=== PATIENT | female | born 1965 | race Caucasian/White ===

== ENCOUNTER 2018-08-10 11:11 | Emergency (ER) | payer MEDICARE, BC ==
[~2018-08-10] VITALS: Ht 167.6 cm; Wt 63.6 kg
[~2018-08-10 11:11] MED LIST: ACIDOPHILUS LAC1 CAP PO; AEROBID-M AEROSO7 GM INH; CELEXA40 MG PO; COMBIVENT RESPIM4 GM INH; COREG6.25 MG PO; DEXEDRINE10 MG PO; DILAUDID2 MG; DILAUDID4 MG PO; DOXYCYCLINE HY100 M2 PO; DUONEB 2.5-0.5 M3 ML UPD; DURAGESIC1 PATCH .1 TRANSDERM; FLORANEX / LACT1 TAB PO; FLUTICASONE PRO16 GM NS; FOLIC ACID1 MG PO; GYNE-LOTRIMIN45 GM VG; HYDROPHILIC; IMODIUM A-D2 M1 PO; LEVAQUIN500 MG PO; LEVSIN/ANASP0.125 MG PO; LIDODERM 5 %1 PATCH TD; LORTAB 7.5/5001 TA1 PO; MAGIC MOUTHWASH OR; MUCUS RELIEF400 MG PO; NEURONTIN 100100 MG PO; NORCO 5/325 TAB1 TA1 PO; NORCO 7.5/325 T1 TA1 PO; PHOSLO667 MG PO; PRILOSEC20 MG PO; PROVENTIL HFA6.7 GM INH; RENVELA800 MG PO; STERAPRED DS 1210 MG PO; VANCOMYCIN1 GM/2501 IV; VITAMIN B-121000 MCG PO; WITCH HAZEL; XANAX0.25 MG PO; XANAX0.5 MG PO; ZYRTEC10 M1 PO
[2018-08-10 11:14] VITALS: Ht 167.6 cm; Wt 63.6 kg
[2018-08-10 11:58] LABS: BASOPHILS 1.1 % (0-2); EOSINOPHILS 4.9 % (0-7); HEMATOCRIT 38.5 % (36.0-48.0); HEMOGLOBIN 12.9 g/dL (12-16); LYMPHOCYTES 36.7 % (15-50); MCH 32.1 pg (26.0-34.0); MCHC 33.5 g/dL (31.0-37.0); MCV 95.8 fL (80.0-100.0); MEAN PLATELET VOLUME 10.4 fL (7.4-10.4); MONOCYTES 9.9 % (2-11); NEUTROPHILS 47.4 % (40-80); PLATELET COUNT 104 10x3/uL (130-400); RBC 4.02 10x6/uL (4.00-5.40); RDW 12.5 % (11.5-14.5); WBC 2.8 10x3/uL (4.8-10.8)
[2018-08-10 12:24] LABS: ALBUMIN 3.3 g/dL (3.4-5.0); ALKALINE PHOSPHATASE 151 U/L (46-116); ALT (SGPT) 18 U/L (10-68); BILIRUBIN - TOTAL 0.18 mg/dL (0.2-1.3); CALC OSMOLALITY 283 mosm/kg (275-300); CALCIUM 8.4 mg/dL (8.5-10.1); CARBON DIOXIDE 25.8 mmol/L (21.0-32.0); CHLORIDE - SERUM 104 mmol/L (98-107); CKMB 1.6 U/L (0.0-3.6); CREATINE KINASE 55 UL (21-215); CREATININE - SERUM 4.8 mg/dL (0.6-1.3); GLUCOSE 86 mg/dL (74-106); POTASSIUM - SERUM 4.2 mmol/L (3.5-5.1); PROTEIN - SERUM 6.8 g/dL (6.4-8.2); SODIUM 141 mmol/L (136-145); UREA NITROGEN 25 mg/dL (7-18); eGFR NON AFRICAN AMERICAN 10 mL/min (90-120)
[2018-08-10 12:25] LABS: TROPONIN-I < 0.017 ng/mL (0.000-0.060)
[2018-08-10 16:30] VITALS: BP 133/67
== END 2018-08-10 16:30 | disposition home or self-care (01) ==
LOC: D.ER 11:11
PROVIDERS: Family Medicine
DX: I95.9 Hypotension, unspecified (principal); T80.89XA Other complications following infusion, transfusion and therapeutic injection, initial encounter; R07.9 Chest pain, unspecified; N18.9 Chronic kidney disease, unspecified; Z99.2 Dependence on renal dialysis

== ENCOUNTER 2018-09-15 20:38 | Inpatient (IN) | payer MEDICARE, BC ==
[~2018-09-15] VITALS: Ht 167.6 cm; Wt 73.3 kg
--- NOTE | ~2018-09-15 | MORECARE ---
CASE MANAGEMENT DISCHARGE SUMMARY PATIENT: ARTHUR JUNG UNIT: [id number] ADM DATE: 09/16/18 AGE: 53 : 61 SEX: F ROOM/BED: D.2108 AUTHOR: LIDA LEPE PHYSICIAN: REFERRING PHYSICIAN: ARACELI QUINTANA MD DATE OF SERVICE: 09/18/18 Discharge Plan Patient Name: ARTHUR JUNG [facility] [facility] 1965 Planned Disposition: Inpatient Rehab Anticipated Discharge Date: 09/18/18 Discharge Date: Expected LOS: 2 Initial Reviewer: [id number] Initial Review Date: 09/16/2018 Generated: 09/18/18 4:51 pm Comments DCP- Discharge Planning Updated by [id number]: Zuleima Reno on 09/18/18 2:[address] CM SPOKE WITH PATIENT'S SISTER DARA REQUESTED BY NURSE. DARA WAS WANTING AN UPDATE ABOUT HER SISTER AND THE PLAN ON HER BEING DIALIZED. I LET HER KNOW THERE IS AN ORDER FOR A TRIALYSIS CATH TO BE PLACED TODAY AND THEN SHE SHOULD BE ABLE TO GO TO DIALYSIS. DR. WILCOX ENTERED ROOM WHILE I WAS IN THERE. PATIENT STATES ONCE SHE IS BETTER SHE WOULD LIKE IN PT REHAB HERE AT THE HOSPITAL. SISTER IS INTERESTED IN GETTING ANOTHER POA. STATES SHE HAS ONE AT HOME BUT WANTS INFO OF DOING ONE HERE. CM WILL CALL AND GET INFO ABOUT HOSPITAL PROCEDURE OF A POA. DCP- Discharge Planning Updated by [id number]: Shar Amaral on 09/16/18 4:[address] Patient Name: ARTHUR JUNG Admission Status: ER Accout number: [id number] Admission Date: 09-16-2018 : 1965 Admission Diagnosis: Attending: ARACELI QUINTANA Current LOS: 1 Anticipated DC Date: 09-18-2018 Planned Disposition: Inpatient Rehab Primary Insurance: MEDICARE A & B PLANNED EXTERNAL PROVIDER: [facility] INPATIENT REHAB Discharge Planning Comments: CM MET WITH PT'S SISTER DARA [facility] WHO ASKED FOR RESOURCE TO ASSIST PT WITH GETTING TO AND FROM HOME AND DIALYSIS, ASKED CM TO FAX RECORDS TO [place] DR. RICHTER. CM MET WITH PT AND SISTER IN ROOM TO DISCUSS DISCHARGE PLANNING AND NEEDS. ARTHUR JUNG provided verbal consent to discuss current and ongoing needs with/in the presence of: SISTER DARA. PT REPORTS LIVING AT HOME INDEPENDENTLY AND ALONE. PT HAS BEEN GOING DOWN 13 STEPS TO DOWNSTAIRS BEDROOM, PT'S SISTER REPORTS SHE IS GOING TO FIX A BED ON THE MAIN FLOOR FOR PT UNTIL SHE IS BETTER. PT HAS MEDICAL EQUIPMENT FROM [facility] AND NO OUTSIDE SERVICES ASSISTING IN THE HOME. PT HAS BEEN DRIVING HERSELF TO AND FROM OUTPATIENT DIALYSIS AT [facility], MWF, 0530AM. CM DISCUSSED AVAILABILITY OF HOME HEALTH, REHAB SERVICES AND MEDICAL EQUIPMENT. PT WANTS REHAB AT [place] AND MAY CONSIDER GOING TO THE [facility] LATER. PT DOES NOT WANT TRANSFER TO [facility] NOW, REPORTS HER SISTER OR FRIEND WILL PICK HER UP FOR DISCHARGE HOME. CM PROVIDED PT WITH [employer] BUS TRANSIT APPLICATION, INSTRUCTED ON HOW TO FILL OUT AND WHERE TO TURN THE APPLICATION IN AT. PT SIGNED RELEASE OF INFORMATION TO THE [facility], ASKED CM TO FAX TO DR. RICHTER AT [facility]. CM FAXED RELEASE, H&P, MED LIST AND LABS TO DR. RICHTER AT [facility], FAX [phone]. PT WOULD LIKE TO BE CONSIDERED FOR REHAB, REPORTS HER PAIN TO BE VERY BAD SINCE "BREAKING" HER BACK AND WANTS REHAB AT [facility] IF POSSIBLE. CM TO CONTINUE TO FOLLOW AND ASSIST NEEDED. Deputy Director Of Nursing: Shar Amaral MSPIA - Discharge Planning Initial Assessment Updated by [id number]: Shar Amaral on 09/16/18 5:07 pm * Is the patient Alert and Oriented? Yes * How many steps to enter\\exit or inside your home? 1-O / 13-I * PCP DR. RICHTER, [facility] OR [facility] * Pharmacy [facility] [address] * Preadmission Environment Home Alone * ADLs Independent * Equipment Cane Nebulizer Oxygen Walker * Other Equipment [facility] MEDICAL EQUIPMENT PROVIDER * List name and contact numbers for known caregivers / representatives who currently or will assist patient after discharge: DARA VIERA, SISTER, [place] [phone] * Verbal permission to speak to the caregivers and representatives has been obtained from the patient. Yes * Community resources currently utilized Other [facility] Services * Please name any agencies selected above. PT REPORTS 100% [facility] DIS[facility] [place], [facility], 0530, PT DRIVES SELF. * Additional services required to return to the preadmission environment? Yes * Can the patient safely return to the preadmission environment? Yes * Has this patient been hospitalized within the prior 30 days at any hospital? No Last DP export: 09/16/18 4:09 Patient Name: ARTHUR JUNG Page 53871 at 1551 All edits/amendments must be made on the electronic document DICTATION DATE: 09/18/181550 ACCOUNTANT: SARA 09/18/181550 RPT#: [id number] DC DATE: STATUS: ADM IN [facility] [address] [place] [address] END OF REPORT
--- NOTE | ~2018-09-15 | MORECARE ---
CASE MANAGEMENT DISCHARGE SUMMARY PATIENT: ARTHUR JUNG UNIT: [id number] ADM DATE: 09/16/18 AGE: 53 : 61 SEX: F ROOM/BED: D.9915 AUTHOR: SHERLEY,DOC PHYSICIAN: REFERRING PHYSICIAN: ARACELI QUINTANA MD DATE OF SERVICE: 09/24/18 Discharge Plan Patient Name: ARTHUR JUNG [facility] [facility] 1965 Planned Disposition: Inpatient Rehab Anticipated Discharge Date: 09/24/18 Discharge Date: Expected LOS: 8 Initial Reviewer: [id number] Initial Review Date: 09/16/2018 Generated: 09/24/18 10:25 am Comments DCP- Discharge Planning Updated by [id number]: Shar Amaral on 09/21/18 1:[address] Patient Name: ARTHUR JUNG Encounter No: [id number] : 1965 Primary Insurance: MEDICARE A & B Anticipated DC Date: 09-22-2018 Planned Disposition: Inpatient Rehab External Planned Provider: [facility] INPATIENT REHAB DCP follow-up note: CM RECEIVED ORDER FOR INPATIENT REHAB PRESCREENING. CM ATTEMPTED TO MEET WITH PT AND HER SISTER IN ROOM TO DISCUSS DISCHARGE PLANNING, PT WAS HAVING BLOOD DRAWN, CM EXCUSED SELF AND EXPLAINED THAT CM WILL BE BACK SHORTLY. CM RETURNED TO ROOM, PT AND BED GONE, PT'S SISTER REPORTS THAT PT IS GONE FOR PROCEDURE AND WILL BE BACK IN ONE AND HALF HOURS. PT'S SISTER ASKED ABOUT REHAB AT [facility]. CM EXPLAINED THAT THE ORDER FOR PRESCREENING WAS IN AND THAT SOMEONE FROM REHAB WILL BE UP LATER TO EVALUATE AND INFORM PATIENT ABOUT PROGRAM. CM ANSWERED SISTER'S, DARA, QUESTIONS ABOUT INPATIENT REHAB AT [facility]. DARA INFORMED CM THAT PT IS STILL WANTING REHAB AT [facility] AND THAT [facility] TOO FAR AWAY FROM FAMILY TO VISIT REGULARLY AND ADVOCATE FOR PT. IMPORTANT MESSAGE FROM MEDICARE PROVIDED AND EXPLAINED. PT'S SISTER STATES SHE WILL LET PT KNOW THAT REHAB WILL BE UP TO ANSWER ANY QUESTIONS AND EVALUATE FOR REHAB PLACEMENT AT [facility] INPATIENT REHAB. CM WAITING INPATIENT REHAB PRESCREENING AND ADMISSION DETERMINATION FROM [facility] INPATIENT REHAB. Shar Amaral, CASE MANAGEMENT Appended by Shar Amaral on 09/21/2018 14:00 CDT: CM SPOKE TO PT IN ROOM REGARDING INPATIENT REHAB PRESCREENING ORDER. PT STILL WANTING REHAB AT [facility] AND FEELS SHE IS READY NOW FOR REHAB. INPORTANT MESSAGE FROM MEDICARE DISCUSSED, PT REPORTS RECEIVING THIS LAST WEEK, CM EXPLAINED THAT CM WAS REMINDING PT OF ABILITY TO APPEAL DISCHARGE AND HAVE COMPLAINTS HEARD AND INVESTIGATED BY MEDICARE IF NEEDED. PT ASKED IF CM HAD INFORMED HER SISTER, DARA OF WHAT HAS BEEN GOING ON AND SPOKE TO HER SISTER AT THAT MOMENT VIA CELL; PT'S SISTER ADVISED PT THAT CM HAD ALREADY INFORMED HER OF EVERYTHING AND SHE NEEDED NOTHING FURHTER AT THIS TIME. PT DENIES FURTHER NEEDS AT THIS TIME. CM WAITING INPATIENT REHAB PRESCREENING AND ADMISSION DETERMINATION FROM [facility] INPATIENT RE[facility]. Shar Amaral, CASE MANAGEMENT DCP- Discharge Planning Updated by [id number]: Zuleima Reno on 09/18/18 2:[address] CM SPOKE WITH PATIENT'S SISTER DARA REQUESTED BY NURSE. DARA WAS WANTING AN UPDATE ABOUT HER SISTER AND THE PLAN ON HER BEING DIALIZED. I LET HER KNOW THERE IS AN ORDER FOR A TRIALYSIS CATH TO BE PLACED TODAY AND THEN SHE SHOULD BE ABLE TO GO TO DIALYSIS. DR. WILCOX ENTERED ROOM WHILE I WAS IN THERE. PATIENT STATES ONCE SHE IS BETTER SHE WOULD LIKE IN PT REHAB HERE AT THE HOSPITAL. SISTER IS INTERESTED IN GETTING ANOTHER POA. STATES SHE HAS ONE AT HOME BUT WANTS INFO OF DOING ONE HERE. CM WILL CALL AND GET INFO ABOUT HOSPITAL PROCEDURE OF A POA. DCP- Discharge Planning Updated by [id number]: Shar Amaral on 09/16/18 4:[address] Patient Name: ARTHUR JUNG Admission Status: ER Accout number: [id number] Admission Date: 09-16-2018 : 1965 Admission Diagnosis: Attending: ARACELI QUINTANA Current LOS: 1 Anticipated DC Date: 09-18-2018 Planned Disposition: Inpatient Rehab Primary Insurance: MEDICARE A & B PLANNED EXTERNAL PROVIDER: [facility] INPATIENT REHAB Discharge Planning Comments: CM MET WITH PT'S SISTER DARA IN [facility] WHO ASKED FOR RESOURCE TO ASSIST PT WITH GETTING TO AND FROM HOME AND DIALYSIS, ASKED CM TO FAX RECORDS TO [place] DR[place] RICHTER. CM MET WITH PT AND SISTER IN ROOM TO DISCUSS DISCHARGE PLANNING AND NEEDS. ARTHUR JUNG provided verbal consent to discuss current and ongoing needs with/in the presence of: SISTER DARA. PT REPORTS LIVING AT HOME INDEPENDENTLY AND ALONE. PT HAS BEEN GOING DOWN 13 STEPS TO DOWNSTAIRS BEDROOM, PT'S SISTER REPORTS SHE IS GOING TO FIX A BED ON THE MAIN FLOOR FOR PT UNTIL SHE IS BETTER. PT HAS MEDICAL EQUIPMENT FROM [facility] AND NO OUTSIDE SERVICES ASSISTING IN THE HOME. PT HAS BEEN DRIVING HERSELF TO AND FROM OUTPATIENT DIALYSIS AT [facility], MWF, 0530AM. CM DISCUSSED AVAILABILITY OF HOME HEALTH, REHAB SERVICES AND MEDICAL EQUIPMENT. PT WANTS REHAB AT [facility] AND MAY CONSIDER GOING TO THE [facility] LATER. PT DOES NOT WANT TRANSFER TO [facility] NOW, REPORTS HER SISTER OR FRIEND WILL PICK HER UP FOR DISCHARGE HOME. CM PROVIDED PT WITH [employer] TRANSIT APPLICATION, INSTRUCTED ON HOW TO FILL OUT AND WHERE TO TURN THE APPLICATION IN AT. PT SIGNED RELEASE OF INFORMATION TO THE [place], ASKED CM TO FAX TO DR. RICHTER AT [facility]. CM FAXED RELEASE, H&P, MED LIST AND LABS TO DR. RICHTER AT [facility], FAX [phone]. PT WOULD LIKE TO BE CONSIDERED FOR REHAB, REPORTS HER PAIN TO BE VERY BAD SINCE "BREAKING" HER BACK AND WANTS REHAB AT [facility] IF POSSIBLE. CM TO CONTINUE TO FOLLOW AND ASSIST NEEDED. Poultry Debeaker: Shar Amaral DCPIA - Discharge Planning Initial Assessment Updated by [id number]: Shar Amaral on 09/16/18 5:07 pm * Is the patient Alert and Oriented? Yes * How many steps to enter\\exit or inside your home? 1-O / 13-I * PCP DR. RICHTER, [facility] OR [facility] * Pharmacy [facility] [address] * Preadmission Environment Home Alone * ADLs Independent * Equipment Cane Nebulizer Oxygen Walker * Other Equipment [place] MEDICAL EQUIPMENT PROVIDER * List name and contact numbers for known caregivers / representatives who currently or will assist patient after discharge: DARA VIERA, , [place] [phone] * Verbal permission to speak to the caregivers and representatives has been obtained from the patient. Yes * Community resources currently utilized Other [place] Services * Please name any agencies selected above. PT REPORTS 100% [facility] DISABILITY - DECLINES TRANSFER TO [facility], [place], MWF, 0530, PT DRIVES SELF. * Additional services required to return to the preadmission environment? Yes * Can the patient safely return to the preadmission environment? Yes * Has this patient been hospitalized within the prior 30 days at any hospital? No Coverage Notice Reviewer: [id number] Amaral Notice Issued Date-Time: 09/21/2018 11:30 Notice Type: IM Discharge Notice Notice Delivered To: Family Member Relationship to Patient: Sister Game Show Host Name: DARA VIERA Delivery Method: HAND - Hand Delivered Ely Days: Prior Verbal Notification: Recipient Understood Notice: Yes Recipient Signature: Yes Med Rec Note Co-signed by Attending: Coverage Notice Comment: Reviewer: [id number] Amaral Notice Issued Date-Time: 09/24/2018 9:00 Notice Type: IM Discharge Notice Notice Delivered To: Patient Relationship to Patient: Game Show Host Name: Delivery Method: HAND - Hand Delivered Ely Days: Prior Verbal Notification: Recipient Understood Notice: Yes Recipient Signature: Yes Med Rec Note Co-signed by Attending: Coverage Notice Comment: Last DP export: 09/21/18 1:02 Patient Name: ARTHUR JUNG Page 56560 at 0925 All edits/amendments must be made on the electronic document DICTATION DATE: 09/24/18923 LAUNDERER HAND: SARA 09/24/18923 RPT#: [id number] DC DATE: STATUS: ADM IN [facility] [address] [place] [address] END OF REPORT
--- NOTE | ~2018-09-15 | MORECARE ---
CASE MANAGEMENT DISCHARGE SUMMARY PATIENT: ARTHUR JUNG UNIT: [id number] ADM DATE: 09/16/18 AGE: 53 : 61 SEX: F ROOM/BED: D.2108 AUTHOR: LIDA LEPE PHYSICIAN: REFERRING PHYSICIAN: ARACELI QUINTANA MD DATE OF SERVICE: 09/21/18 Discharge Plan Patient Name: ARTHUR JUNG [facility] [facility] 1965 Planned Disposition: Inpatient Rehab Anticipated Discharge Date: 09/22/18 Discharge Date: Expected LOS: 6 Initial Reviewer: [id number] Initial Review Date: 09/16/2018 Generated: 09/21/18 9:45 am Comments DCP- Discharge Planning Updated by [id number]: Zuleima Shadia on 09/18/18 2:[address] CM SPOKE WITH PATIENT'S SISTER DARA REQUESTED BY NURSE. DARA WAS WANTING AN UPDATE ABOUT HER SISTER AND THE PLAN ON HER BEING DIALIZED. I LET HER KNOW THERE IS AN ORDER FOR A TRIALYSIS CATH TO BE PLACED TODAY AND THEN SHE SHOULD BE ABLE TO GO TO DIALYSIS. DR. WILCOX ENTERED ROOM WHILE I WAS IN THERE. PATIENT STATES ONCE SHE IS BETTER SHE WOULD LIKE IN PT REHAB HERE AT THE HOSPITAL. SISTER IS INTERESTED IN GETTING ANOTHER POA. STATES SHE HAS ONE AT HOME BUT WANTS INFO OF DOING ONE HERE. CM WILL CALL AND GET INFO ABOUT HOSPITAL PROCEDURE OF A POA. DCP- Discharge Planning Updated by [id number]: Shar Amaral on 09/16/18 4:[address] Patient Name: ARTHUR JUNG Admission Status: ER Accout number: [id number] Admission Date: 09-16-2018 : 1965 Admission Diagnosis: Attending: ARACELI QUINTANA Current LOS: 1 Anticipated DC Date: 09-18-2018 Planned Disposition: Inpatient Rehab Primary Insurance: MEDICARE A & B PLANNED EXTERNAL PROVIDER: [facility] INPATIENT REHAB Discharge Planning Comments: CM MET WITH PT'S SISTER DARA IN [facility] WHO ASKED FOR RESOURCE TO ASSIST PT WITH GETTING TO AND FROM HOME AND DIALYSIS, ASKED CM TO FAX RECORDS TO [place] DR. RICHTER. CM MET WITH PT AND SISTER IN ROOM TO DISCUSS DISCHARGE PLANNING AND NEEDS. ARTHUR JUNG provided verbal consent to discuss current and ongoing needs with/in the presence of: SISTER DARA. PT REPORTS LIVING AT HOME INDEPENDENTLY AND ALONE. PT HAS BEEN GOING DOWN 13 STEPS TO DOWNSTAIRS BEDROOM, PT'S SISTER REPORTS SHE IS GOING TO FIX A BED ON THE MAIN FLOOR FOR PT UNTIL SHE IS BETTER. PT HAS MEDICAL EQUIPMENT FROM [facility] [employer] AND NO OUTSIDE SERVICES ASSISTING IN THE HOME. PT HAS BEEN DRIVING HERSELF TO AND FROM OUTPATIENT DIALYSIS AT [facility], MWF, 0530AM. CM DISCUSSED AVAILABILITY OF HOME HEALTH, REHAB SERVICES AND MEDICAL EQUIPMENT. PT WANTS REHAB AT [place] AND MAY CONSIDER GOING TO THE [facility] LATER. PT DOES NOT WANT TRANSFER TO [facility] NOW, REPORTS HER SISTER OR FRIEND WILL PICK HER UP FOR DISCHARGE HOME. CM PROVIDED PT WITH [employer] BUS TRANSIT APPLICATION, INSTRUCTED ON HOW TO FILL OUT AND WHERE TO TURN THE APPLICATION IN AT. PT SIGNED RELEASE OF INFORMATION TO THE [place], ASKED CM TO FAX TO DR. RICHTER AT [facility]. CM FAXED RELEASE, H&P, MED LIST AND LABS TO DR. RICHTER AT [place], FAX [phone]. PT WOULD LIKE TO BE CONSIDERED FOR REHAB, REPORTS HER PAIN TO BE VERY BAD SINCE "BREAKING" HER BACK AND WANTS REHAB AT [facility] IF POSSIBLE. CM TO CONTINUE TO FOLLOW AND ASSIST NEEDED. Organizational Consultant: Shar Amaral MEPIA - Discharge Planning Initial Assessment Updated by [id number]: Shar Amaral on 09/16/18 5:07 pm * Is the patient Alert and Oriented? Yes * How many steps to enter\\exit or inside your home? 1-O / 13-I * PCP DR. RICHTER, [facility] OR [facility] * Pharmacy [place] [facility] [address] * Preadmission Environment Home Alone * ADLs Independent * Equipment Cane Nebulizer Oxygen Walker * Other Equipment [place] MEDICAL [facility]QUIPMENT PROVIDER * List name and contact numbers for known caregivers / representatives who currently or will assist patient after discharge: DARA VIERA, SISTER, [place] [phone] * Verbal permission to speak to the caregivers and representatives has been obtained from the patient. Yes * Community resources currently utilized Other [place] Services * Please name any agencies selected above. PT REPORTS 100% [facility] DISABILITY - DECLINES [facility], [facility], 0530, PT DRIVES SELF. * Additional services required to return to the preadmission environment? Yes * Can the patient safely return to the preadmission environment? Yes * Has this patient been hospitalized within the prior 30 days at any hospital? No Last DP export: 09/18/18 2:51 Patient Name: ARTHUR JUNG Page 00301 at 0845 All edits/amendments must be made on the electronic document DICTATION DATE: 09/21/18843 MEDICAID SERVICE COORDINATOR: SARA 09/21/18843 RPT#: [id number] DC DATE: STATUS: ADM IN [facility] [address] [place] [address] END OF REPORT
--- NOTE | ~2018-09-15 | MORECARE ---
CASE MANAGEMENT DISCHARGE SUMMARY PATIENT: ARTHUR JUNG UNIT: [id number] ADM DATE: 09/16/18 AGE: 53 : 61 SEX: F ROOM/BED: D.7335 AUTHOR: LIDA LEPE PHYSICIAN: REFERRING PHYSICIAN: ARACELI QUINTANA MD DATE OF SERVICE: 09/24/18 Discharge Plan Patient Name: ARTHUR JUNG [facility] [facility] 1965 Planned Disposition: Inpatient Rehab Anticipated Discharge Date: 09/24/18 Discharge Date: Expected LOS: 8 Initial Reviewer: [id number] Initial Review Date: 09/16/2018 Generated: 09/24/18 4:25 pm Comments DCP- Discharge Planning Updated by [id number]: Shar Amaral on 09/24/18 8:[address] Patient Name: ARTHUR JUNG Encounter No: [id number] : 1965 Primary Insurance: MEDICARE A & B Anticipated DC Date: 09-24-2018 Planned Disposition: Inpatient Rehab External Planned Provider: [facility] DCP follow-up note: CM RECEIVED CALL FROM PT ASKING FOR CM TO SEE HER. CM MET WITH PT AT APPROXIMATELY 0850 HOURS IN ROOM. PT REPORTS THAT THE NURSE ON FRIDAY INFORMED PT THAT PAIN PATCH WAS DISCONTINUED, PT PULLED HER PATCH OFF AND GAVE TO NURSE WHO PUT THE PATCH INTO THE SHARPS CONTAINER IN ROOM. PT THEN ASKED DR. QUINTANA ABOUT PAIN MANAGEMENT, PT REPORTS DR. QUINTANA TOLD HER THAT HE DID NOT DISCONTINUE THE MEDICATION AND REORDERED A PAIN PATCH. PT HAS THE PATCH ON HER BACK NOW. PT WOULD LIKE TO ADDRESS THIS WITH SOMEONE SO THAT PT'S "CREDABILITY" IS NOT DAMAGED. PT ALSO REPORTS KILLING A KAMINSKI IN HER ROOM YESTERDAY AND SAW ANOTHER ONE THIS MORNING. CM INFORMED PT THAT OCCUPATIONAL THERAPY SUPERVISOR WOULD BE NOTIFIED OF HER ISSUES WITH REQUEST TO SEE HER. PT IS WANTING TO GO TO [facility] TODAY AND REPORTS THE DOCTOR TOLD HER SHE CAN GO TODAY. IMPORTANT MESSAGE FROM MEDICARE PROVIDED AND EXPLAINED. CM NOTIFIED BODY SHOP WORKER OF REPORTED ROACHES IN ROOM FOR MAINTENANCE ORDER. CM NOTIFIED UNIT NURSE GLOBAL MARKETING INTERN SALEEM OF PT'S CONCERN. CM NOTIFIED DEMI OF [facility]. [facility] TO CONTACT MED 2 NURSE WITH ROOM NUMBER WHEN READY TO ACCEPT PT AND NURSE REPORT. Shar Amaral, CASE MANAGEMENT DCP- Discharge Planning Updated by [email or web address]: Shar Amaral on 09/21/18 1:[address] Patient Name: ARTHUR JUNG Encounter No: [id number] : 1965 Primary Insurance: MEDICARE A & B Anticipated DC Date: 09-22-2018 Planned Disposition: Inpatient Rehab External Planned Provider: [facility] DCP follow-up note: CM RECEIVED ORDER FOR INPATIENT REHAB PRESCREENING. CM ATTEMPTED TO MEET WITH PT AND HER SISTER IN ROOM TO DISCUSS DISCHARGE PLANNING, PT WAS HAVING BLOOD DRAWN, CM EXCUSED SELF AND EXPLAINED THAT CM WILL BE BACK SHORTLY. CM RETURNED TO ROOM, PT AND BED GONE, PT'S SISTER REPORTS THAT PT IS GONE FOR PROCEDURE AND WILL BE BACK IN ONE AND HALF HOURS. PT'S SISTER ASKED ABOUT REHAB AT [place]. CM EXPLAINED THAT THE ORDER FOR PRESCREENING WAS IN AND THAT SOMEONE FROM REHAB WILL BE UP LATER TO EVALUATE AND INFORM PATIENT ABOUT PROGRAM. CM ANSWERED SISTER'S, DARA, QUESTIONS ABOUT INPATIENT REHAB AT [place]. DARA INFORMED CM THAT PT IS STILL WANTING RE[facility]AB AT [place] AND [facility] AW[facility] FROM FAMILY TO VISIT REGULARLY AND ADVOCATE FOR PT. IMPORTANT MESSAGE FROM MEDICARE PROVIDED AND EXPLAINED. PT'S SISTER STATES SHE WILL LET PT KNOW THAT REHAB WILL BE UP TO ANSWER ANY QUESTIONS AND EVALUATE FOR REHAB PLACEMENT AT [place] INPATIENT REHAB. CM WAITING INPATIENT REHAB PRESCREENING AND ADMISSION DETERMINATION FROM [facility]. Shar Amaral, CASE MANAGEMENT Appended by Shar Amaral on 09/21/2018 14:00 CDT: CM SPOKE TO PT IN ROOM REGARDING INPATIENT REHAB PRESCREENING ORDER. PT STILL WANTING REHAB AT [place] AND FEELS SHE IS READY NOW FOR REHAB. INPORTANT MESSAGE FROM MEDICARE DISCUSSED, PT REPORTS RECEIVING THIS LAST WEEK, CM EXPLAINED THAT CM WAS REMINDING PT OF ABILITY TO APPEAL DISCHARGE AND HAVE COMPLAINTS HEARD AND INVESTIGATED BY MEDICARE IF NEEDED. PT ASKED IF CM HAD INFORMED HER SISTERDARA OF WHAT HAS BEEN GOING ON AND SPOKE TO HER SISTER AT THAT MOMENT VIA CELL; PT'S SISTER ADVISED PT THAT CM HAD ALREADY INFORMED HER OF EVERYTHING AND SHE NEEDED NOTHING FURHTER AT THIS TIME. PT DENIES FURTHER NEEDS AT THIS TIME. CM WAITING INPATIENT REHAB PRESCREENING AND ADMISSION DETERMINATION FROM [facility]. Shar Amaral, CASE MANAGEMENT DCP- Discharge Planning Updated by [id number]: Zuleima Reno on 09/18/18 2:[address] CM SPOKE WITH PATIENT'S SISTER DARA REQUESTED BY NURSE. DARA WAS WANTING AN UPDATE ABOUT HER SISTER AND THE PLAN ON HER BEING DIALIZED. I LET HER KNOW THERE IS AN ORDER FOR A TRIALYSIS CATH TO BE PLACED TODAY AND THEN SHE SHOULD BE ABLE TO GO TO DIALYSIS. DR. WILCOX ENTERED ROOM WHILE I WAS IN THERE. PATIENT STATES ONCE SHE IS BETTER SHE WOULD LIKE IN PT REHAB HERE AT THE HOSPITAL. SISTER IS INTERESTED IN GETTING ANOTHER POA. STATES SHE HAS ONE AT HOME BUT WANTS INFO OF DOING ONE HERE. CM WILL CALL AND GET INFO ABOUT HOSPITAL PROCEDURE OF A POA. DCP- Discharge Planning Updated by [id number]: Shar Amaral on 09/16/18 4:[address] Patient Name: ARTHUR Hicks FABIANA Admission Status: ER Accout number: [id number] Admission Date: 09-16-2018 : 1965 Admission Diagnosis: Attending: ARACELI QUINTANA Current LOS: 1 Anticipated DC Date: 09-18-2018 Planned Disposition: Inpatient Rehab Primary Insurance: MEDICARE A & B PLANNED EXTERNAL PROVIDER: [facility] Discharge Planning Comments: CM MET WITH PT'S SISTER DARA IN [facility] WHO ASKED FOR RESOURCE TO ASSIST PT WITH GETTING TO AND FROM HOME AND DIALYSIS, ASKED CM TO FAX RECORDS TO [place] DR. RICHTER. CM MET WITH PT AND SISTER IN ROOM TO DISCUSS DISCHARGE PLANNING AND NEEDS. ARTHUR JUNG provided verbal consent to discuss current and ongoing needs with/in the presence of: SISTER DARA. PT REPORTS LIVING AT HOME INDEPENDENTLY AND ALONE. PT HAS BEEN GOING DOWN 13 STEPS TO DOWNSTAIRS BEDROOM, PT'S SISTER REPORTS SHE IS GOING TO FIX A BED ON THE MAIN FLOOR FOR PT UNTIL SHE IS BETTER. PT HAS MEDICAL EQUIPMENT FROM [facility] AND NO OUTSIDE SERVICES ASSISTING IN THE HOME. PT HAS BEEN DRIVING HERSELF TO AND FROM OUTPATIENT DIALYSIS AT [facility], [place], 0530AM. CM DISCUSSED AVAILABILITY OF HOME HEALTH, REHAB SERVICES AND MEDICAL EQUIPMENT. PT WANTS REHAB AT [place] AND MAY CONSIDER GOING TO THE DC LATER. PT DOES NOT WANT TRANSFER TO [facility] NOW, REPORTS HER SISTER OR FRIEND WILL PICK HER UP FOR DISCHARGE HOME. CM PROVIDED PT WITH [employer] BUS TRANSIT APPLICATION, INSTRUCTED ON HOW TO FILL OUT AND WHERE TO TURN THE APPLICATION IN AT. PT SIGNED RELEASE OF INFORMATION TO THE DC, ASKED CM TO FAX TO DR. RICHTER AT [facility]. CM FAXED RELEASE, H&P, MED LIST AND LABS TO DR. RICHTER AT [facility], FAX [phone]. PT WOULD LIKE TO BE CONSIDERED FOR REHAB, REPORTS HER PAIN TO BE VERY BAD SINCE "BREAKING" HER BACK AND WANTS REHAB AT [facility] IF POSSIBLE. CM TO CONTINUE TO FOLLOW AND ASSIST NEEDED. Sheet Fed Printer: Shar Amaral DCPIA - Discharge Planning Initial Assessment Updated by [id number]: Shar Amaral on 09/16/18 5:07 pm * Is the patient Alert and Oriented? Yes * How many steps to enter\\exit or inside your home? 1-O -I * PCP DR. RICHTER, [facility] OR [facility] * Pharmacy [facility] [address] * Preadmission Environment Home Alone * ADLs Independent * Equipment Cane Nebulizer Oxygen Walker * Other Equipment [facility] MEDICAL EQUIPMENT PROVIDER * List name and contact numbers for known caregivers / representatives who currently or will assist patient after discharge: DARA VIERA, SISTER, [place] [phone] * Verbal permission to speak to the caregivers and representatives has been obtained from the patient. Yes * Community resources currently utilized Other [place] Services * Please name any agencies selected above. PT REPORTS [facility]% [facility] TRANSFER TO [facility], [place], MWF, 0530, PT DRIVES SELF. * Additional services required to return to the preadmission environment? Yes * Can the patient safely return to the preadmission environment? Yes * Has this patient been hospitalized within the prior 30 days at any hospital? No Coverage Notice Reviewer: [email or web address] Buck Amaral Notice Issued Date-Time: 09/21/2018 11:30 Notice Type: IM Discharge Notice Notice Delivered To: Family Member Relationship to Patient: Sister Lard Maker Name: DARA VIERA Delivery Method: HAND - Hand Delivered Ely Days: Prior Verbal Notification: Recipient Understood Notice: Yes Recipient Signature: Yes Med Rec Note Co-signed by Attending: Coverage Notice Comment: Reviewer: [id number] - Shar Amaral Notice Issued Date-Time: 09/24/2018 9:00 Notice Type: IM Discharge Notice Notice Delivered To: Patient Relationship to Patient: Lard Maker Name: Delivery Method: HAND - Hand Delivered Ely Days: Prior Verbal Notification: Recipient Understood Notice: Yes Recipient Signature: Yes Med Rec Note Co-signed by Attending: Coverage Notice Comment: Last DP export: 09/24/18 8:32 a Patient Name: ARTHUR JUNG Page [id number] at 1525 All edits/amendments must be made on the electronic document DICTATION DATE: 09/24/18 152 RELIGIOUS ACTIVITIES DIRECTOR: SARA 09/24/18 152 RPT#: [id number] DC DATE: STATUS: ADM IN [facility] [address] [place] [address] END OF REPORT
--- NOTE | ~2018-09-15 | HEMODYNAMI ---
PATIENT:ARTHUR JUNG MEDICAL RECORD: [id number] : 61 LOCATION:[facility] D.2108 ADMISSION DATE: 09/16/18 Generatedon:09/17/201814:43 Patient name: ARTHUR JUNG Patient #: [id number] SSN : : 1965 Date of study: 09/17/2018 Page: Of Hemodynamic Procedure Report Patient Data Patient Demographics Procedure consent was obtained First Name: ARTHUR Gender: Female Last Name: FABIAAN : 1965 Middle Initial: R Age: 53 year(s) Patient #: [id number] Race: Unknown Additional ID: [id number] Contact details Address: [address] [place] [address] State: [place] City: [place] Zip code: [address] Admission Admission Data Admission Date: 09/16/2018 Admission Time: 10:26 Room #: D2108 Procedure Procedure Types Cath Procedure Peripheral Cath Diagnostic Procedure Fistula Procedure Description Procedure Date Procedure Date: 09/17/2018 Procedure Start Time: 14:20 Procedure Staff Name Function Tip Vaughn MD Performing Physician Nahum Caro RT Monitor Alis Wallerub Reyna John RN Nurse Procedure Data Cath Procedure Fluoroscopy Diagnostic fluoroscopy Total fluoroscopy Time: 0.9 time: 0.9 min min Diagnostic fluoroscopy Total fluoroscopy dose: 62 dose: 62 mGy mGy Contrast Material Contrast Material Type Amount (ml) Isovue 300 35 Procedure Medications Medication Administration Route Dosage Oxygen etCO2 Nasal cannula 4 l/min Lidocaine 1% added to field 20 Heparin Flush Bag added to field 2 bags (1000units/500ml NS) Versed I.V. 2 mg Fentanyl I.V. 50 mcg Fentanyl I.V. 50 mcg Hemodynamics Rest Heart Rate: 68 (bpm) Snapshots Pre Cath Intra NCS Post Cath Vital Signs Time Heart Resp etCO2 NIBP (mmHg) Rhythm Pain Sedation Rate (ipm) (mmHg) Status Level (bpm) 14:04:35 65 11 43.3 129/68(96) NSR 0 (11) 10(A) , No pain 14:08:47 71 10 44.1 125/66(106) NSR 0 (11) 10(A) , No pain 14:12:57 67 16 42.6 131/68(92) NSR 0 (11) 10(A) , No pain 14:17:52 76 15 24.6 125/77(110) NSR 0 (11) 10(A) , No pain 14:22:06 77 18 31.3 122/66(94) NSR 0 (11) 10(A) , No pain 14:26:20 67 13 38.1 129/67(97) NSR 0 (11) 10(A) , No pain 14:30:34 67 12 40.3 120/62(86) NSR 0 (11) 10(A) , No pain 14:34:42 65 15 41 120/71(84) NSR 0 (11) 10(A) , No pain 14:38:56 69 9 43.3 116/59(84) NSR 0 (11) 10(A) , No pain 14:43:06 70 10 43.3 118/62(84) NSR 0 (11) 10(A) , No pain Medications Time Medication Route Dose Verified Delivered Reason Notes Effe ctiveness by by 14:15:51 Oxygen etCO2 4 Tip Orellana used for Nasal l/min Alvaro Vaughn RN procedure cannula 14:16:03 Lidocaine 1% added 20ml Tip Whelan used for to vial Roderick Vaughn MD procedure field DE SOUZA 14:16:35 Heparin Flush added 2 Tip Whelan used for Bag to bags Roderick Vaughn MD procedure (1000units/500ml field DE SOUZA NS) 14:21:14 Versed I.V. 2 mg Tip Orellana for Alvaro Vaughn RN sedation 14:21:40 Fentanyl I.V. 50 Tip Orellana for mcg Alvaro Vaughn RN sedation 14:25:58 Fentanyl I.V. 50 Tip Orellana for mcg Alvaro Vaughn RN sedation Procedure Log Time Note 13:30:16 Nahum Caro RT (R) (CV) sent for patient. Start room use. 13:30:23 Time tracking: Regular hours (M-F 7:00 - 5:00) 13:30:28 Plan of Care:Hemodynamics will remain stable., Cardiac rhythm will remain stable., Comfort level will be maintained., Respiratory function will remain adequate., Patient/ family verbilizes understanding of procedure., Procedure tolerated without complication., Recovers from procedure without complications.. 13:30:35 Patient received from [employer] to Alert and oriented. Tansferred to table in Supine position. 13:30:37 Correct patient and procedure confirmed by team. 13:30:38 Signed procedure consent form obtained from patient. 13:30:40 ECG and BP/O2 sat monitors applied to patient. 13:30:41 Full Disclosure recording started 13:30:42 - 13:30:46 H&P Date Dictated: 09/17/2018 Within 30 days and on chart.. 13:30:47 Pre-procedure instructions explained to patient. 13:30:48 Pre-op teaching completed and patient verbalized understanding. 13:30:49 Family in waiting room. 13:30:51 Patient NPO since Midnight. 13:30:55 Is the patient allergic to Iodine/contrast media? No. 13:30:57 Is patient on blood thinner?Yes 13:31:01 ACC The patient was administered the following blood thiners within the last 24 hours: ACCLovenox 13:31:03 Patient diabetic? No. 13:31:05 - 13:31:06 ----Pre-sedation anethsthesia assessment.---- 13:31:09 Previous problem with sedation/anesthesia? No ? 13:31:11 Snore? No 13:31:14 Sleep apnea? No 13:31:15 Deviated septum? No 13:31:17 Opens mouth fully? Yes 13:31:27 Sticks out tongue? Yes 13:31:32 Airway obstruction? No ? 13:31:34 Dentures? No ? 13:31:38 Use device set IR Diagnostic 13:31:41 Bag Decanter (2002S) opened to sterile field. 13:31:42 Sterile Angiographic Pack opened to sterile field. 13:31:45 Tegaderm 4 x 4 ([id number]) opened to sterile field. 14:03:38 Vital chart was started 14:15:51 Oxygen 4 l/min etCO2 Nasal cannula was administered by Reyna John RN; used for procedure; 14:16:03 Lidocaine 1% 20ml vial added to field was administered by Tip Vaughn MD; used for procedure; 14:16:35 Heparin Flush Bag (1000units/500ml NS) 2 bags added to field was administered by Tip Vaughn MD; used for procedure; 14:20:16 Procedure started. 14:20:29 Local anesthetic to left arm with Lidocaine 1% by Tip Vaughn MD.INITIAL ACCESS ONLY 14:20:34 Left Arm area was prepped with chlora-prep and draped in sterile fashio n 14:20:43 IV patent on arrival in right hand with 0.9% NaCl at [facility]. 14:20:45 Alarms reviewed by R. N. 14:20:45 Alarms reviewed by R. N. 14:20:49 Physician arrived 14:20:50 --------ALL STOP TIME OUT------ 14:20:50 Final Timeout: patient, procedure, and site verified with staff and physician. All members of the team are in agreement. 14:20:53 Left Arm site verified by team. 14:21:05 Sedation plan: IV Moderate Sedation Medication:Versed, Fentanyl 14:21:14 Versed 2 mg I.V. was administered by Reyna John RN; for sedation; 14:21:40 Fentanyl 50 mcg I.V. was administered by Reyna John RN; for sedation; 14:25:58 Fentanyl 50 mcg I.V. was administered by Reyna John RN; for sedation; 14:28:22 Micropuncture VSI 4FR kit opened to sterile field. 14:28:34 DOC .035 wire ([id number]) opened to sterile field. 14:28:46 Baseline sample Acquired. 14:35:17 Procedure ended.(Physican Out) 14:39:40 Fluoroscopy time 00.90 minutes. 14:39:55 Fluoroscopy dose: 62 mGy 14:39:55 Flurop Dose total: 62 14:40:10 Sharps counted by scrub and verified by R.N. 14:40:22 Insertion/operative site no bleeding no hematoma. 14:40:31 Post-op/insertion site Left Fistula dressed using a 4 x 4 and Tegaderm. 14:40:38 Post left arm:stable 14:40:51 Post procedure instruction explained to patient.Patient verbalizes understanding. 14:40:52 Patient needs reinforcement of post procedure teaching. 14:41:08 Procedure and supply charges have been captured, reviewed, submitted an d are correct. 14:42:53 Contrast amount:Isovue 300 35ml. 14:43:03 Report given to Med II. 14:43:09 Patient transfered to Med II with Bed. 14:43:29 Vital chart was stopped Device Usage Item Name Manufacture Quantity Catalog Hospital Part Current [facility] l Lot# / Number Charge Number Stock Stock Serial# Code Bag Decanter Microtek 1 2001S [id number] [id number] [id number] 5 () [employer] Inc[employer] Sterile Cardinal 1 [id number] [id number] 5 Angiographic Health Pack Tegaderm 4 x 3M 1 1626W [id number] 128188 [id number] 5 4 (1626W) Micropuncture VSI VASCULAR 1 7266V 238857 842675 5 VSI 4FR kit SOLUTIONS DOC .035 wire [facility] 1 [id number] 5 ([id number]) Signature Audit [place] Stage Time Signature Unsigned Intra-Procedure 09/17/2018 Nahum 2:43:26 PM Gordo RT (R) (CV) Signatures Monitor : Nahum Signature : Gordo RT Date : Time : [facility] [address] [place] [address]
--- NOTE | ~2018-09-15 | MORECARE ---
CASE MANAGEMENT DISCHARGE SUMMARY PATIENT: ARTHUR JUNG UNIT: [id number] ADM DATE: 09/16/18 AGE: 53 : 61 SEX: F ROOM/BED: D.2830 AUTHOR: LIDA LEPE PHYSICIAN: REFERRING PHYSICIAN: ARACELI QUINTANA MD DATE OF SERVICE: 09/16/18 Discharge Plan Patient Name: ARTHUR JUNG [facility] [facility] 1965 Planned Disposition: Inpatient Rehab Anticipated Discharge Date: 09/18/18 Discharge Date: Expected LOS: 2 Initial Reviewer: [id number] Initial Review Date: 09/16/2018 Generated: 09/16/18 6:09 pm Comments DCP- Discharge Planning Updated by [id number]: Sahr Amaral on 09/16/18 4:[address] Patient Name: ARTHUR JUNG Admission Status: ER Accout number: [id number] Admission Date: 09-16-2018 : 1965 Admission Diagnosis: Attending: ARACELI QUINTANA Current LOS: 1 Anticipated DC Date: 09-18-2018 Planned Disposition: Inpatient Rehab Primary Insurance: MEDICARE A & B PLANNED EXTERNAL PROVIDER: [facility] IN[facility]IENT RE[facility] Discharge Planning Comments: CM MET WITH PT'S SISTER DARA IN [facility] WHO ASKED FOR RESOURCE TO ASSIST PT WITH GETTING TO AND FROM HOME AND DIALYSIS, ASKED CM TO FAX RECORDS TO [place] DR. RICHTER. CM MET WITH PT AND SISTER IN ROOM TO DISCUSS DISCHARGE PLANNING AND NEEDS. ARTHUR JUNG provided verbal consent to discuss current and ongoing needs with/in the presence of: SISTER DARA. PT REPORTS LIVING AT HOME INDEPENDENTLY AND ALONE. PT HAS BEEN GOING DOWN 13 STEPS TO DOWNSTAIRS BEDROOM, PT'S SISTER REPORTS SHE IS GOING TO FIX A BED ON THE MAIN FLOOR FOR PT UNTIL SHE IS BETTER. PT HAS MEDICAL EQUIPMENT FROM [facility] AND NO OUTSIDE SERVICES ASSISTING IN THE HOME. PT HAS BEEN DRIVING HERSELF TO AND FROM OUTPATIENT DIALYSIS AT [facility], MWF, 0530AM. CM DISCUSSED AVAILABILITY OF HOME HEALTH, REHAB SERVICES AND MEDICAL EQUIPMENT. PT WANTS REHAB AT [place] AND MAY CONSIDER GOING TO THE [facility] LATER. PT DOES NOT WANT TRANSFER TO [facility] NOW, REPORTS HER SISTER OR FRIEND WILL PICK HER UP FOR DISCHARGE HOME. CM PROVIDED PT WITH [employer] BUS TRANSIT APPLICATION, INSTRUCTED ON HOW TO FILL OUT AND WHERE TO TURN THE APPLICATION IN AT. PT SIGNED RELEASE OF INFORMATION TO THE NH, ASKED CM TO FAX TO DR. RICHTER AT NH. CM FAXED RELEASE, H&P, MED LIST AND LABS TO DR. RICHTER AT [facility], FAX [phone]. PT WOULD LIKE TO BE CONSIDERED FOR REHAB, REPORTS HER PAIN TO BE VERY BAD SINCE "BREAKING" HER BACK AND WANTS REHAB AT [facility] IF POSSIBLE. CM TO CONTINUE TO FOLLOW AND ASSIST NEEDED. Civil Engineering Professional: Shar Amaral DCPIA - Discharge Planning Initial Assessment Updated by [id number]: Shar Amaral on 09/16/18 5:07 pm * Is the patient Alert and Oriented? Yes * How many steps to enter\\exit or inside your home? 1-O -I * PCP DR. RICHTER, [facility] OR [facility] * [facility] [address] * Preadmission Environment Home Alone * ADLs Independent * Equipment Cane Nebulizer Oxygen Walker * Other Equipment [facility] MEDICAL EQUIPMENT PROVIDER * List name and contact numbers for known caregivers / representatives who currently or will assist patient after discharge: DARA VIERA, SISTER, [place] [phone] * Verbal permission to speak to the caregivers and representatives has been obtained from the patient. Yes * Community resources currently utilized Other [place] Services * Please name any agencies selected above. PT REPORTS 100% [facility] DISABILITY - [facility]CLIN[facility], MWF, 0530, PT DRIVES SELF. * Additional services required to return to the preadmission environment? Yes * Can the patient safely return to the preadmission environment? Yes * Has this patient been hospitalized within the prior 30 days at any hospital? No External Providers External Provider: OTHER-OTHER Next Contact Date: 09/16/2018 Service Request Date: Service Type: Resolution: Reviewer: Comments: Patient Name: ARTHUR JUNG Page 48149 at 1709 All edits/amendments must be made on the electronic document DICTATION DATE: 09/16/181708 BOOKBINDING MACHINE OPERATOR: SARA 09/16/181708 RPT#: [id number] DC DATE: STATUS: ADM IN [facility] [address] [place] [place] [address] END OF REPORT
--- NOTE | ~2018-09-15 | MORECARE ---
CASE MANAGEMENT DISCHARGE SUMMARY PATIENT: ARTHUR JUNG UNIT: [id number] ADM DATE: 09/16/18 AGE: 53 : 61 SEX: F ROOM/BED: D.2613 AUTHOR: SHERLEY,DOC PHYSICIAN: REFERRING PHYSICIAN: ARACELI QUINTANA MD DATE OF SERVICE: 09/21/18 Discharge Plan Patient Name: [facility]UR [facility]UN[facility] [facility] 1965 Planned Disposition: Inpatient Rehab Anticipated Discharge Date: 09/22/18 Discharge Date: Expected LOS: 6 Initial Reviewer: [id number] Initial Review Date: 09/16/2018 Generated: 09/21/18 3:02 pm Comments DCP- Discharge Planning Updated by [id number]: Shar Amaral on 09/21/18 1:[address] Patient Name: ARTHUR JUNG Encounter No: [id number] : 1965 Primary Insurance: MEDICARE A & B Anticipated DC Date: 09-22-2018 Planned Disposition: Inpatient Rehab External Planned Provider: [facility] DCP follow-up note: CM RECEIVED ORDER FOR INPATIENT REHAB PRESCREENING. CM ATTEMPTED TO MEET WITH PT AND HER SISTER IN ROOM TO DISCUSS DISCHARGE PLANNING, PT WAS HAVING BLOOD DRAWN, CM EXCUSED SELF AND EXPLAINED THAT CM WILL BE BACK SHORTLY. CM RETURNED TO ROOM, PT AND BED GONE, PT'S SISTER REPORTS THAT PT IS GONE FOR PROCEDURE AND WILL BE BACK IN ONE AND HALF HOURS. PT'S SISTER ASKED ABOUT REHAB AT [place]. CM EXPLAINED THAT THE ORDER FOR PRESCREENING WAS IN AND THAT SOMEONE FROM REHAB WILL BE UP LATER TO EVALUATE AND INFORM PATIENT ABOUT PROGRAM. CM ANSWERED SISTER'S, DARA, QUESTIONS ABOUT INPATIENT REHAB AT [place]. DARA INFORMED CM THAT PT IS STILL WANTING REHAB AT [place] AND [facility] TOO [facility] AWAY FROM FAMILY TO VISIT REGULARLY AND ADVOCATE FOR PT. IMPORTANT MESSAGE FROM MEDICARE PROVIDED AND EXPLAINED. PT'S SISTER STATES SHE WILL LET PT KNOW THAT REHAB WILL BE UP TO ANSWER ANY QUESTIONS AND EVALUATE FOR REHAB PLACEMENT AT [place] INPATIENT REHAB. CM WAITING INPATIENT REHAB PRESCREENING AND ADMISSION DETERMINATION FROM [facility]. Shar Amaral, CASE MANAGEMENT Appended by Shar Amaral on 09/21/2018 14:00 CDT: CM SPOKE TO PT IN ROOM REGARDING INPATIENT REHAB PRESCREENING ORDER. PT STILL WANTING REHAB AT [place] AND FEELS SHE IS READY NOW FOR REHAB. INPORTANT MESSAGE FROM MEDICARE DISCUSSED, PT REPORTS RECEIVING THIS LAST WEEK, CM EXPLAINED THAT CM WAS REMINDING PT OF ABILITY TO APPEAL DISCHARGE AND HAVE COMPLAINTS HEARD AND INVESTIGATED BY MEDICARE IF NEEDED. PT ASKED IF CM HAD INFORMED HER SISTER, DARA OF WHAT HAS BEEN GOING ON AND SPOKE TO HER SISTER AT THAT MOMENT VIA CELL; PT'S SISTER ADVISED PT THAT CM HAD ALREADY INFORMED HER OF EVERYTHING AND SHE NEEDED NOTHING FURHTER AT THIS TIME. PT DENIES FURTHER NEEDS AT THIS TIME. CM WAITING INPATIENT REHAB PRESCREENING AND ADMISSION DETERMINATION FROM [facility]. Shar Amaral, CASE MANAGEMENT DCP- Discharge Planning Updated by [id number]: Zuleima Reno on 09/18/18 2:[address] CM SPOKE WITH PATIENT'S SISTER DARA REQUESTED BY NURSE. DARA WAS WANTING AN UPDATE ABOUT HER SISTER AND THE PLAN ON HER BEING DIALIZED. I LET HER KNOW THERE IS AN ORDER FOR A TRIALYSIS CATH TO BE PLACED TODAY AND THEN SHE SHOULD BE ABLE TO GO TO DIALYSIS. DR. WILCOX ENTERED ROOM WHILE I WAS IN THERE. PATIENT STATES ONCE SHE IS BETTER SHE WOULD LIKE IN PT REHAB HERE AT THE HOSPITAL. SISTER IS INTERESTED IN GETTING ANOTHER POA. STATES SHE HAS ONE AT HOME BUT WANTS INFO OF DOING ONE HERE. CM WILL CALL AND GET INFO ABOUT HOSPITAL PROCEDURE OF A POA. DCP- Discharge Planning Updated by [id number]: Shar Amaral on 09/16/18 4:[address] Patient Name: ARTHUR JUNG Admission Status: ER Accout number: [id number] Admission Date: 09-16-2018 : 1965 Admission Diagnosis: Attending: ARACELI QUINTANA Current LOS: 1 Anticipated DC Date: 09-18-2018 Planned Disposition: Inpatient Rehab Primary Insurance: MEDICARE A & B PLANNED EXTERNAL PROVIDER: [facility] Discharge Planning Comments: CM MET WITH PT'S SISTER DARA [facility] WHO ASKED FOR RESOURCE TO ASSIST PT WITH GETTING TO AND FROM HOME AND DIALYSIS, ASKED CM TO FAX RECORDS TO [place] DR[place] RICHTER. CM MET WITH PT AND SISTER IN ROOM TO DISCUSS DISCHARGE PLANNING AND NEEDS. ARTHUR JUNG provided verbal consent to discuss current and ongoing needs with/in the presence of: SISTER DARA. PT REPORTS LIVING AT HOME INDEPENDENTLY AND ALONE. PT HAS BEEN GOING DOWN 13 STEPS TO DOWNSTAIRS BEDROOM, PT'S SISTER REPORTS SHE IS GOING TO FIX A BED ON THE MAIN FLOOR FOR PT UNTIL SHE IS BETTER. PT HAS MEDICAL EQUIPMENT FROM [facility] AND NO OUTSIDE SERVICES ASSISTING IN THE HOME. PT HAS BEEN DRIVING HERSELF TO AND FROM OUTPATIENT DIALYSIS AT [facility], MWF, 0530AM. CM DISCUSSED AVAILABILITY OF HOME HEALTH, REHAB SERVICES AND MEDICAL EQUIPMENT. PT WANTS REHAB AT [place] AND MAY CONSIDER GOING TO THE [facility] LATER. PT DOES NOT WANT TRANSFER TO [facility] NOW, REPORTS HER SISTER OR FRIEND WILL PICK HER UP FOR DISCHARGE HOME. CM PROVIDED PT WITH [employer] TRANSIT APPLICATION, INSTRUCTED ON HOW TO FILL OUT AND WHERE TO TURN THE APPLICATION IN AT. PT SIGNED RELEASE OF INFORMATION TO THE [facility], ASKED CM TO FAX TO DR. RICHTER AT [facility]. CM FAXED RELEASE, H&P, MED LIST AND LABS TO DR. RICHTER AT [facility], FAX [phone]. PT WOULD LIKE TO BE CONSIDERED FOR REHAB, REPORTS HER PAIN TO BE VERY BAD SINCE "BREAKING" HER BACK AND WANTS REHAB AT [facility] IF POSSIBLE. CM TO CONTINUE TO FOLLOW AND ASSIST NEEDED. Chief Scientist: Shar Amaral DCPIA - Discharge Planning Initial Assessment Updated by [id number]: Shar Amaral on 09/16/18 5:07 pm * Is the patient Alert and Oriented? Yes * How many steps to enter\\exit or inside your home? 1-O / 13-I * PCP DR. RICHTER, [facility] OR [facility] * Pharmacy [facility] [address] * Preadmission Environment Home Alone * ADLs Independent * Equipment Cane Nebulizer Oxygen Walker * Other Equipment [place] MEDICAL EQUIPMENT PROVIDER * List name and contact numbers for known caregivers / representatives who currently or will assist patient after discharge: DARA VIERA, , [place] [phone] * Verbal permission to speak to the caregivers and representatives has been obtained from the patient. Yes * Community resources currently utilized Other [place] Services * Please name any agencies selected above. PT REPORTS 100% [facility] DISABILITY - DECLINES TRANSFER TO [facility], [place], MWF, 0530, PT DRIVES SELF. * Additional services required to return to the preadmission environment? Yes * Can the patient safely return to the preadmission environment? Yes * Has this patient been hospitalized within the prior 30 days at any hospital? No Coverage Notice Reviewer: [id number] Buck Amaral Notice Issued Date-Time: 09/21/2018 11:30 Notice Type: IM Discharge Notice Notice Delivered To: Family Member Relationship to Patient: Sister Leak Detector Name: DARA VIERA Delivery Method: HAND - Hand Delivered [place] Days: Prior Verbal Notification: Recipient Understood Notice: Yes Recipient Signature: Yes Med Rec Note Co-signed by Attending: Coverage Notice Comment: Last DP export: 09/21/18 11:25 Patient Name: ARTHUR JUNG Page 57522 at 1402 All edits/amendments must be made on the electronic document DICTATION DATE: 09/21/181400 SUPERVISOR AUDIT CLERKS: SARA 09/21/18 140 RPT#: [id number] DC DATE: STATUS: ADM IN [facility] [address] [place] [address] END OF REPORT
--- NOTE | ~2018-09-15 | MORECARE ---
CASE MANAGEMENT DISCHARGE SUMMARY PATIENT: ARTHUR JUNG UNIT: [id number] ADM DATE: 09/16/18 AGE: 53 : 61 SEX: F ROOM/BED: D.7502 AUTHOR: LIDA LEPE PHYSICIAN: REFERRING PHYSICIAN: ARACELI QUINTANA MD DATE OF SERVICE: 09/24/18 Discharge Plan Patient Name: ARTHUR JUNG [facility] [facility] 1965 Planned Disposition: Inpatient Rehab Anticipated Discharge Date: 09/24/18 Discharge Date: Expected LOS: 8 Initial Reviewer: [id number] Initial Review Date: 09/16/2018 Generated: 09/24/18 10:32 am Comments DCP- Discharge Planning Updated by [id number]: Shar Amaral on 09/24/18 8:[address] Patient Name: ARTHUR JUNG Encounter No: [id number] : 1965 Primary Insurance: MEDICARE A & B Anticipated DC Date: 09-24-2018 Planned Disposition: Inpatient Rehab External Planned Provider: [facility] INPATIENT REH[facility] DCP follow-up note: CM RECEIVED CALL FROM PT ASKING FOR CM TO SEE HER. CM MET WITH PT AT APPROXIMATELY 0850 HOURS IN ROOM. PT REPORTS THAT THE NURSE ON FRIDAY INFORMED PT THAT PAIN PATCH WAS DISCONTINUED, PT PULLED HER PATCH OFF AND GAVE TO NURSE WHO PUT THE PATCH INTO THE SHARPS CONTAINER IN ROOM. PT THEN ASKED DR. QUINTANA ABOUT PAIN MANAGEMENT, PT REPORTS DR. QUINTANA TOLD HER THAT HE DID NOT DISCONTINUE THE MEDICATION AND REORDERED A PAIN PATCH. PT HAS THE PATCH ON HER BACK NOW. PT WOULD LIKE TO ADDRESS THIS WITH SOMEONE SO THAT PT'S "CREDABILITY" IS NOT DAMAGED. PT ALSO REPORTS KILLING A KAMINSKI IN HER ROOM YESTERDAY AND SAW ANOTHER ONE THIS MORNING. CM INFORMED PT THAT HIP HOP PERFORMERS WOULD BE NOTIFIED OF HER ISSUES WITH REQUEST TO SEE HER. PT IS WANTING TO GO TO [facility] INPATIENT REHAB TODAY AND REPORTS THE DOCTOR TOLD HER SHE CAN GO TODAY. IMPORTANT MESSAGE FROM MEDICARE PROVIDED AND EXPLAINED. CM NOTIFIED MONONITROTOLUENE OPERATOR OF REPORTED ROACHES IN ROOM FOR MAINTENANCE ORDER. CM NOTIFIED UNIT NURSE STRUCTURAL ANALYSIS ENGINEER SALEEM OF PT'S CONCERN. CM NOTIFIED DEMI OF [facility] INPATIENT REHAB. [facility] INPATIENT RE[facility] TO CONTACT MED 2 NURSE WITH ROOM NUMBER WHEN READY TO ACCEPT PT AND NURSE REPORT. Shar Amaral, CASE MANAGEMENT DCP- Discharge Planning Updated by [id number]: Shar Amaral on 09/21/18 1:[address] Patient Name: ARTHUR JUNG Encounter No: [id number] : 1965 Primary Insurance: MEDICARE A & B Anticipated DC Date: 09-22-2018 Planned Disposition: Inpatient Rehab External Planned Provider: [facility] INPATIENT REH[facility] DCP follow-up note: CM RECEIVED ORDER FOR INPATIENT REHAB PRESCREENING. CM ATTEMPTED TO MEET WITH PT AND HER SISTER IN ROOM TO DISCUSS DISCHARGE PLANNING, PT WAS HAVING BLOOD DRAWN, CM EXCUSED SELF AND EXPLAINED THAT CM WILL BE BACK SHORTLY. CM RETURNED TO ROOM, PT AND BED GONE, PT'S SISTER REPORTS THAT PT IS GONE FOR PROCEDURE AND WILL BE BACK IN ONE AND HALF HOURS. PT'S SISTER ASKED ABOUT REHAB AT [place]. CM EXPLAINED THAT THE ORDER FOR PRESCREENING WAS IN AND THAT SOMEONE FROM REHAB WILL BE UP LATER TO EVALUATE AND INFORM PATIENT ABOUT PROGRAM. CM ANSWERED SISTER'S, DARA, QUESTIONS ABOUT INPATIENT REHAB AT [place]. DARA INFORMED CM THAT PT IS STILL WANTING REHAB AT [place] AND THAT [facility] TOO FAR AWAY FROM FAMILY TO VISIT REGULARLY AND ADVOCATE FOR PT. IMPORTANT MESSAGE FROM MEDICARE PROVIDED AND EXPLAINED. PT'S SISTER STATES SHE WILL LET PT KNOW THAT REHAB WILL BE UP TO ANSWER ANY QUESTIONS AND EVALUATE FOR REHAB PLACEMENT AT [place] INPATIENT REHAB. CM WAITING INPATIENT REHAB PRESCREENING AND ADMISSION DETERMINATION FROM [facility] INPAT[facility] RE[facility]. Shar Amaral, CASE MANAGEMENT Appended by Shar Amaral on 09/21/2018 14:00 CDT: CM SPOKE TO PT IN ROOM REGARDING INPATIENT REHAB PRESCREENING ORDER. PT STILL WANTING REHAB AT [place] AND FEELS SHE IS READY NOW FOR REHAB. INPORTANT MESSAGE FROM MEDICARE DISCUSSED, PT REPORTS RECEIVING THIS LAST WEEK, CM EXPLAINED THAT CM WAS REMINDING PT OF ABILITY TO APPEAL DISCHARGE AND HAVE COMPLAINTS HEARD AND INVESTIGATED BY MEDICARE IF NEEDED. PT ASKED IF CM HAD INFORMED HER SISTERDARA OF WHAT HAS BEEN GOING ON AND SPOKE TO HER SISTER AT THAT MOMENT VIA CELL; PT'S SISTER ADVISED PT THAT CM HAD ALREADY INFORMED HER OF EVERYTHING AND SHE NEEDED NOTHING FURHTER AT THIS TIME. PT DENIES FURTHER NEEDS AT THIS TIME. CM WAITING INPATIENT REHAB PRESCREENING AND ADMISSION DETERMINATION FROM [facility] INPAT[facility] RE[facility]. Shar Amaral, CASE MANAGEMENT DCP- Discharge Planning Updated by [id number]: Zuleima Reno on 09/18/18 2:[address] CM SPOKE WITH PATIENT'S SISTER DARA REQUESTED BY NURSE. DARA WAS WANTING AN UPDATE ABOUT HER SISTER AND THE PLAN ON HER BEING DIALIZED. I LET HER KNOW THERE IS AN ORDER FOR A TRIALYSIS CATH TO BE PLACED TODAY AND THEN SHE SHOULD BE ABLE TO GO TO DIALYSIS. DR. WILCOX ENTERED ROOM WHILE I WAS IN THERE. PATIENT STATES ONCE SHE IS BETTER SHE WOULD LIKE IN PT REHAB HERE AT THE HOSPITAL. SISTER IS INTERESTED IN GETTING ANOTHER POA. STATES SHE HAS ONE AT HOME BUT WANTS INFO OF DOING ONE HERE. CM WILL CALL AND GET INFO ABOUT HOSPITAL PROCEDURE OF A POA. DCP- Discharge Planning Updated by [id number]: Shar Amaral on 09/16/18 4:[address] Patient Name: ARTHUR Hicks FABIANA Admission Status: ER Accout number: [id number] Admission Date: 09-16-2018 : 1965 Admission Diagnosis: Attending: ARACELI QUINTANA Current LOS: 1 Anticipated DC Date: 09-18-2018 Planned Disposition: Inpatient Rehab Primary Insurance: MEDICARE A & B PLANNED EXTERNAL PROVIDER: [facility] INPATIENT REH[facility] Discharge Planning Comments: CM MET WITH PT'S SISTER DARA IN [facility] WHO ASKED FOR RESOURCE TO ASSIST PT WITH GETTING TO AND FROM HOME AND DIALYSIS, ASKED CM TO FAX RECORDS TO [place] DR. RICHTER. CM MET WITH PT AND SISTER IN ROOM TO DISCUSS DISCHARGE PLANNING AND NEEDS. ARTHUR JUNG provided verbal consent to discuss current and ongoing needs with/in the presence of: SISTER DARA. PT REPORTS LIVING AT HOME INDEPENDENTLY AND ALONE. PT HAS BEEN GOING DOWN 13 STEPS TO DOWNSTAIRS BEDROOM, PT'S SISTER REPORTS SHE IS GOING TO FIX A BED ON THE MAIN FLOOR FOR PT UNTIL SHE IS BETTER. PT HAS MEDICAL EQUIPMENT [facility] AND NO OUTSIDE SERVICES ASSISTING IN THE HOME. PT HAS BEEN DRIVING HERSELF TO AND FROM OUTPATIENT DIALYSIS AT [facility], [place], 0530AM. CM DISCUSSED AVAILABILITY OF HOME HEALTH, REHAB SERVICES AND MEDICAL EQUIPMENT. PT WANTS REHAB AT [place] AND MAY CONSIDER GOING TO THE [place] LATER. PT DOES NOT WANT TRANSFER TO [facility] NOW, REPORTS HER SISTER OR FRIEND WILL PICK HER UP FOR DISCHARGE HOME. CM PROVIDED PT WITH [employer] BUS TRANSIT APPLICATION, INSTRUCTED ON HOW TO FILL OUT AND WHERE TO TURN THE APPLICATION IN AT. PT SIGNED RELEASE OF INFORMATION TO THE [place], ASKED CM TO FAX TO DR. RICHTER AT [facility]. CM FAXED RELEASE, H&P, MED LIST AND LABS TO DR. RICHTER AT [facility], FAX [phone]. PT WOULD LIKE TO BE CONSIDERED FOR REHAB, REPORTS HER PAIN TO BE VERY BAD SINCE "BREAKING" HER BACK AND WANTS REHAB AT [facility] IF POSSIBLE. CM TO CONTINUE TO FOLLOW AND ASSIST NEEDED. Corset Maker: Shar Amaral DCPIA - Discharge Planning Initial Assessment Updated by [id number]: Shar Amaral on 09/16/18 5:07 pm * Is the patient Alert and Oriented? Yes * How many steps to enter\\exit or inside your home? 1-O -I * PCP DR. RICHTER, [facility] * Pharmacy [facility] [address] * Preadmission Environment Home Alone * ADLs Independent * Equipment Cane Nebulizer Oxygen Walker * Other Equipment [place] MEDICAL EQUIPMENT PROVIDER * List name and contact numbers for known caregivers / representatives who currently or will assist patient after discharge: DARA VIERA, SISTER, [place] [phone] * Verbal permission to speak to the caregivers and representatives has been obtained from the patient. Yes * Community resources currently utilized Other [place] Services * Please name any agencies selected above. PT REPORTS 100% VA DISABILITY - DECLINES TRANSFER TO [facility], [place], MWF, 0530, PT DRIVES SELF. * Additional services required to return to the preadmission environment? Yes * Can the patient safely return to the preadmission environment? Yes * Has this patient been hospitalized within the prior 30 days at any hospital? No Coverage Notice Reviewer: [id number] Buck Amaral Notice Issued Date-Time: 09/21/2018 11:30 Notice Type: IM Discharge Notice Notice Delivered To: Family Member Relationship to Patient: Sister Stuntman Name: DARA VIERA Delivery Method: HAND - Hand Delivered E[place] Days: Prior Verbal Notification: Recipient Understood Notice: Yes Recipient Signature: Yes Med Rec Note Co-signed by Attending: Coverage Notice Comment: Reviewer: [id number] - Shar Amaral Notice Issued Date-Time: 09/24/2018 9:00 Notice Type: IM Discharge Notice Notice Delivered To: Patient Relationship to Patient: Stuntman Name: Delivery Method: HAND - Hand Delivered E[place] Days: Prior Verbal Notification: Recipient Understood Notice: Yes Recipient Signature: Yes Med Rec Note Co-signed by Attending: Coverage Notice Comment: Last DP export: 09/24/18 8:25 a Patient Name: ARTHUR JUNG Page 19762 at 0932 All edits/amendments must be made on the electronic document DICTATION DATE: 09/24/18930 SUBSTATION INSPECTOR: SARA 09/24/18930 RPT#: [id number] DC DATE: STATUS: ADM IN [facility] [address] [place] [address] END OF REPORT
--- NOTE | ~2018-09-15 | MORECARE ---
CASE MANAGEMENT DISCHARGE SUMMARY PATIENT: ARTHUR JUNG UNIT: [id number] ADM DATE: 09/16/18 AGE: 53 : 61 SEX: F ROOM/BED: D.3203 AUTHOR: SHERLEY,DOC PHYSICIAN: REFERRING PHYSICIAN: ARACELI QUINTANA MD DATE OF SERVICE: 09/21/18 Discharge Plan Patient Name: ARTHUR JUNG [facility] [facility] 1965 Planned Disposition: Inpatient Rehab Anticipated Discharge Date: 09/22/18 Discharge Date: Expected LOS: 6 Initial Reviewer: [id number] Initial Review Date: 09/16/2018 Generated: 09/21/18 1:25 pm Comments DCP- Discharge Planning Updated by [id number]: Shar Amaral on 09/21/18 11:[address] Patient Name: ARTHUR JUNG Encounter No: [id number] : 1965 Primary Insurance: MEDICARE A & B Anticipated DC Date: 09-22-2018 Planned Disposition: Inpatient Rehab External Planned Provider: [facility] INPATIENT REHAB DCP follow-up note: CM RECEIVED ORDER FOR INPATIENT REHAB PRESCREENING. CM ATTEMPTED TO MEET WITH PT AND HER SISTER IN ROOM TO DISCUSS DISCHARGE PLANNING, PT WAS HAVING BLOOD DRAWN, CM EXCUSED SELF AND EXPLAINED THAT CM WILL BE BACK SHORTLY. CM RETURNED TO ROOM, PT AND BED GONE, PT'S SISTER REPORTS THAT PT IS GONE FOR PROCEDURE AND WILL BE BACK IN ONE AND HALF HOURS. PT'S SISTER ASKED ABOUT REHAB AT [place]. CM EXPLAINED THAT THE ORDER FOR PRESCREENING WAS IN AND THAT SOMEONE FROM REHAB WILL BE UP LATER TO EVALUATE AND INFORM PATIENT ABOUT PROGRAM. CM ANSWERED SISTER'S, DARA, QUESTIONS ABOUT INPATIENT REHAB AT [place]. DARA INFORMED CM THAT PT IS STILL WANTING REHAB AT [place] AND [facility] TOO FAR AWAY FROM FAMILY TO VISIT REGULARLY AND ADVOCATE FOR PT. IMPORTANT MESSAGE FROM MEDICARE PROVIDED AND EXPLAINED. PT'S SISTER STATES SHE WILL LET PT KNOW THAT REHAB WILL BE UP TO ANSWER ANY QUESTIONS AND EVALUATE FOR REHAB PLACEMENT AT [place] INPATIENT REHAB. CM WAITING INPATIENT REHAB PRESCREENING AND ADMISSION DETERMINATION FROM [facility] INPATIENT REH[facility]. Shar Amaral, CASE MANAGEMENT DCP- Discharge Planning Updated by [id number]: Zuleima Reno on 09/18/18 2:[address] CM SPOKE WITH PATIENT'S SISTER DARA REQUESTED BY NURSE. DARA WAS WANTING AN UPDATE ABOUT HER SISTER AND THE PLAN ON HER BEING DIALIZED. I LET HER KNOW THERE IS AN ORDER FOR A TRIALYSIS CATH TO BE PLACED TODAY AND THEN SHE SHOULD BE ABLE TO GO TO DIALYSIS. DR. WILCOX ENTERED ROOM WHILE I WAS IN THERE. PATIENT STATES ONCE SHE IS BETTER SHE WOULD LIKE IN PT REHAB HERE AT THE HOSPITAL. SISTER IS INTERESTED IN GETTING ANOTHER POA. STATES SHE HAS ONE AT HOME BUT WANTS INFO OF DOING ONE HERE. CM WILL CALL AND GET INFO ABOUT HOSPITAL PROCEDURE OF A POA. DCP- Discharge Planning Updated by [id number]: Shar Amaral on 09/16/18 4:[address] Patient Name: ARTHUR JUNG Admission Status: ER Accout number: [id number] Admission Date: 09-16-2018 : 1965 Admission Diagnosis: Attending: ARACELI QUINTANA Current LOS: 1 Anticipated DC Date: 09-18-2018 Planned Disposition: Inpatient Rehab Primary Insurance: MEDICARE A & B PLANNED EXTERNAL PROVIDER: [facility] INPATIENT REHAB Discharge Planning Comments: CM MET WITH PT'S SISTER DARA IN [facility] WHO ASKED FOR RESOURCE TO ASSIST PT WITH GETTING TO AND FROM HOME AND DIALYSIS, ASKED CM TO FAX RECORDS TO [place] DR. RICHTER. CM MET WITH PT AND SISTER IN ROOM TO DISCUSS DISCHARGE PLANNING AND NEEDS. ARTHUR R FABIANA provided verbal consent to discuss current and ongoing needs with/in the presence of: SISTER DARA. PT REPORTS LIVING AT HOME INDEPENDENTLY AND ALONE. PT HAS BEEN GOING DOWN 13 STEPS TO DOWNSTAIRS BEDROOM, PT'S SISTER REPORTS SHE IS GOING TO FIX A BED ON THE MAIN FLOOR FOR PT UNTIL SHE IS BETTER. PT HAS MEDICAL EQUIPMENT FROM [facility] AND NO OUTSIDE SERVICES ASSISTING IN THE HOME. PT HAS BEEN DRIVING HERSELF TO AND FROM OUTPATIENT DIALYSIS AT [facility], MWF, 0530AM. CM DISCUSSED AVAILABILITY OF HOME HEALTH, REHAB SERVICES AND MEDICAL EQUIPMENT. PT WANTS REHAB AT [place] AND MAY CONSIDER GOING TO THE [place] LATER. PT DOES NOT WANT TRANSFER TO [place] [facility] NOW, REPORTS HER SISTER OR FRIEND WILL PICK HER UP FOR DISCHARGE HOME. CM PROVIDED PT WITH [employer] TRANSIT APPLICATION, INSTRUCTED ON HOW TO FILL OUT AND WHERE TO TURN THE APPLICATION IN AT. PT SIGNED RELEASE OF INFORMATION TO THE [place], ASKED CM TO FAX TO DR. RICHTER AT [place]. CM FAXED RELEASE, H&P, MED LIST AND LABS TO DR. RICHTER AT [place], FAX [phone]. PT WOULD LIKE TO BE CONSIDERED FOR REHAB, REPORTS HER PAIN TO BE VERY BAD SINCE "BREAKING" HER BACK AND WANTS REHAB AT [facility] IF POSSIBLE. CM TO CONTINUE TO FOLLOW AND ASSIST NEEDED. Railroad Car Inspector: Shar Amaral DCPIA - Discharge Planning Initial Assessment Updated by [id number]: Shar Amaral on 09/16/18 5:07 pm * Is the patient Alert and Oriented? Yes * How many steps to enter\\exit or inside your home? 1-O -I * PCP DR. RICHTER, [facility] * [facility] [address] * Preadmission Environment Home Alone * ADLs Independent * Equipment Cane Nebulizer Oxygen Walker * Other Equipment [place] MEDICAL [facility]QUIPMENT PROVIDER * List name and contact numbers for known caregivers / representatives who currently or will assist patient after discharge: DARA VIERA, SISTER, [place] [phone] * Verbal permission to speak to the caregivers and representatives has been obtained from the patient. Yes * Community resources currently utilized Other [place] Services * Please name any agencies selected above. PT REPORTS 100% [facility] DISABILITY - DECLINES TRANSFER TO [place] [facility], [facility], MWF, 0530, PT DRIVES SELF. * Additional services required to return to the preadmission environment? Yes * Can the patient safely return to the preadmission environment? Yes * Has this patient been hospitalized within the prior 30 days at any hospital? No Coverage Notice Reviewer: [id number] - Shar Amaral Notice Issued Date-Time: 09/21/2018 11:30 Notice Type: IM Discharge Notice Notice Delivered To: Family Member Relationship to Patient: Sister Residential Construction Instructor Name: DARA VIERA Delivery Method: HAND - Hand Delivered E[place] Days: Prior Verbal Notification: Recipient Understood Notice: Yes Recipient Signature: Yes Med Rec Note Co-signed by Attending: Coverage Notice Comment: Last DP export: 09/21/18 11:08 Patient Name: JUNG ARTHUR Page 39371 at 1225 All edits/amendments must be made on the electronic document DICTATION DATE: 09/21/181223 RESERVOIR ENGINEER: SARA 09/21/181223 RPT#: [id number] DC DATE: STATUS: ADM IN [facility] [address] [place] [address] END OF REPORT
--- NOTE | ~2018-09-15 | MORECARE ---
CASE MANAGEMENT DISCHARGE SUMMARY PATIENT: ARTHUR JUNG UNIT: [id number] ADM DATE: 09/16/18 AGE: 53 : [birth year] SEX: F ROOM/BED: D.1340 AUTHOR: LIDA LEPE PHYSICIAN: REFERRING PHYSICIAN: ARACELI QUINTANA MD DATE OF SERVICE: 10/01/18 Discharge Plan Patient Name: ARTHUR JUNG Facility: [facility]:[place] : 1965 Planned Disposition: Inpatient Rehab Anticipated Discharge Date: 09/24/18 Discharge Date: 09/24/2018 Expected LOS: 8 Initial Reviewer: [id number] Initial Review Date: 09/16/2018 Generated: 10/01/18 12:10 pm Comments DCP- Discharge Planning Updated by [id number]: Shar Amaral on 10/01/18 10:[address] Patient Name: ARTHUR JUNG Encounter No: [id number] : 1965 Primary Insurance: MEDICARE A & B Anticipated DC Date: 09-24-2018 Planned Disposition: Inpatient Rehab External Planned Provider: [facility] DCP follow-up note: CM RECEIVED CALL FROM DR. RICHTER OF [facility], , WHO REQUESTED IMAGING AND DISCHARGE INFORMATION FROM HOSPITAL STAY BE SENT TO PRIMARY CARE OFFICE FOR FOLLOW UP WITH PT TODAY. PT HAD SIGNED RELEASE FOR DR. RICHTER PRIOR TO HOSPITAL DISCHARGE WITH CM. CM FAXED IMAGING AND DISCHARGE INFORMATION FROM HOSPITAL STAY TO FAX [phone]. CM NOTED THAT CLINIC WILL NEED TO CONTACT MEDICAL RECORDS AND PROVIDED CONTACT PHONE FOR ANY ADDITIONAL INFORMATION THAT THEY MAY NEED. Shar Amaral, CASE MANAGEMENT DCP- Discharge Planning Updated by [id number]: Shar Amaral on 09/24/18 9:[address] Patient Name: ARTHUR JUNG Encounter No: [id number] : 1965 Primary Insurance: MEDICARE A & B Anticipated DC Date: 09-24-2018 Planned Disposition: Inpatient Rehab External Planned Provider: [facility] DCP follow-up note: CM RECEIVED CALL FROM PT ASKING FOR CM TO SEE HER. CM MET WITH PT AT APPROXIMATELY 0850 HOURS IN ROOM. PT REPORTS THAT THE NURSE ON FRIDAY INFORMED PT THAT PAIN PATCH WAS DISCONTINUED, PT PULLED HER PATCH OFF AND GAVE TO NURSE WHO PUT THE PATCH INTO THE SHARPS CONTAINER IN ROOM. PT THEN ASKED DR. QUINTANA ABOUT PAIN MANAGEMENT, PT REPORTS DR. QUINTANA TOLD HER THAT HE DID NOT DISCONTINUE THE MEDICATION AND REORDERED A PAIN PATCH. PT HAS THE PATCH ON HER BACK NOW. PT WOULD LIKE TO ADDRESS THIS WITH SOMEONE SO THAT PT'S "CREDABILITY" IS NOT DAMAGED. PT ALSO REPORTS KILLING A KAMINSKI IN HER ROOM YESTERDAY AND SAW ANOTHER ONE THIS MORNING. CM INFORMED PT THAT MARKETING SUMMER INTERN WOULD BE NOTIFIED OF HER ISSUES WITH REQUEST TO SEE HER. PT IS WANTING TO GO TO [facility] TODAY AND REPORTS THE DOCTOR TOLD HER SHE CAN GO TODAY. IMPORTANT MESSAGE FROM MEDICARE PROVIDED AND EXPLAINED. CM NOTIFIED NURSING PROFESSOR OF REPORTED ROACHES IN ROOM FOR MAINTENANCE ORDER. CM NOTIFIED UNIT NURSE CONCESSION WORKER SALEEM OF PT'S CONCERN. CM NOTIFIED DEMI OF [facility]. [facility] TO CONTACT [facility] 2 NURSE WITH ROOM NUMBER WHEN READY TO ACCEPT PT AND NURSE REPORT. Shar Amaral, CASE MANAGEMENT DCP- Discharge Planning Updated by [id number]: Shar Amaral on 09/21/18 2:[address] Patient Name: ARTHUR JUNG Encounter No: [id number] : 1965 Primary Insurance: MEDICARE A & B Anticipated DC Date: 09-22-2018 Planned Disposition: Inpatient Rehab External Planned Provider: [facility] DCP follow-up note: CM RECEIVED ORDER FOR INPATIENT REHAB PRESCREENING. CM ATTEMPTED TO MEET WITH PT AND HER SISTER IN ROOM TO DISCUSS DISCHARGE PLANNING, PT WAS HAVING BLOOD DRAWN, CM EXCUSED SELF AND EXPLAINED THAT CM WILL BE BACK SHORTLY. CM RETURNED TO ROOM, PT AND BED GONE, PT'S SISTER REPORTS THAT PT IS GONE FOR PROCEDURE AND WILL BE BACK IN ONE AND HALF HOURS. PT'S SISTER ASKED ABOUT REHAB AT [facility]. CM EXPLAINED THAT THE ORDER FOR PRESCREENING WAS IN AND THAT SOMEONE FROM REHAB WILL BE UP LATER TO EVALUATE AND INFORM PATIENT ABOUT PROGRAM. CM ANSWERED SISTER'S, DARA, QUESTIONS ABOUT INPATIENT REHAB AT [facility]. DARA INFORMED CM THAT PT IS STILL WANTING REHAB AT [facility] AND THAT GOING [place] WOULD PUT PT TOO FAR AWAY FROM FAMILY TO VISIT REGULARLY AND ADVOCATE FOR PT. IMPORTANT MESSAGE FROM MEDICARE PROVIDED AND EXPLAINED. PT'S SISTER STATES SHE WILL LET PT KNOW THAT REHAB WILL BE UP TO ANSWER ANY QUESTIONS AND EVALUATE FOR REHAB PLACEMENT AT [facility] INPATIENT [facility]. CM WAITING INPATIENT REHAB PRESCREENING AND ADMISSION DETERMINATION FROM [facility]. Shar Amaral, CASE MANAGEMENT Appended by Shar Amaral on 09/21/2018 14:00 CDT: CM SPOKE TO PT IN ROOM REGARDING INPATIENT REHAB PRESCREENING ORDER. PT STILL WANTING REHAB AT [facility] AND FEELS SHE IS READY NOW FOR REHAB. INPORTANT MESSAGE FROM MEDICARE DISCUSSED, PT REPORTS RECEIVING THIS LAST WEEK, CM EXPLAINED THAT CM WAS REMINDING PT OF ABILITY TO APPEAL DISCHARGE AND HAVE COMPLAINTS HEARD AND INVESTIGATED BY MEDICARE IF NEEDED. PT ASKED IF CM HAD INFORMED HER SISTER, DARA OF WHAT HAS BEEN GOING ON AND SPOKE TO HER SISTER AT THAT MOMENT VIA CELL; PT'S SISTER ADVISED PT THAT CM HAD ALREADY INFORMED HER OF EVERYTHING AND SHE NEEDED NOTHING FURHTER AT THIS TIME. PT DENIES FURTHER NEEDS AT THIS TIME. CM WAITING INPATIENT REHAB PRESCREENING AND ADMISSION DETERMINATION FROM [facility]. Shar Amaral, CASE MANAGEMENT DCP- Discharge Planning Updated by [id number]: Zuleima Reno on 09/18/18 3:[address] CM SPOKE WITH PATIENT'S SISTER DARA REQUESTED BY NURSE. DARA WAS WANTING AN UPDATE ABOUT HER SISTER AND THE PLAN ON HER BEING DIALIZED. I LET HER KNOW THERE IS AN ORDER FOR A TRIALYSIS CATH TO BE PLACED TODAY AND THEN SHE SHOULD BE ABLE TO GO TO DIALYSIS. DR. WILCOX ENTERED ROOM WHILE I WAS IN THERE. PATIENT STATES ONCE SHE IS BETTER SHE WOULD LIKE IN PT REHAB HERE AT THE HOSPITAL. SISTER IS INTERESTED IN GETTING ANOTHER POA. STATES SHE HAS ONE AT HOME BUT WANTS INFO OF DOING ONE HERE. CM WILL CALL AND GET INFO ABOUT HOSPITAL PROCEDURE OF A POA. DCP- Discharge Planning Updated by [id number]: Shar Amaral on 09/16/18 5:[address] Patient Name: ARTHUR JUNG Admission Status: ER Accout number: [id number] Admission Date: 09-16-2018 : 1965 Admission Diagnosis: Attending: ARACELI QUINTANA Current LOS: 1 Anticipated DC Date: 09-18-2018 Planned Disposition: Inpatient Rehab Primary Insurance: MEDICARE A & B PLANNED EXTERNAL PROVIDER: [facility] Discharge Planning Comments: CM MET WITH PT'S SISTER DARA IN [place] WHO ASKED FOR RESOURCE TO ASSIST PT WITH GETTING TO AND FROM HOME AND DIALYSIS, ASKED CM TO FAX RECORDS TO [place] DR[place] RICHTER. CM MET WITH PT AND SISTER IN ROOM TO DISCUSS DISCHARGE PLANNING AND NEEDS. ARTHUR JUNG provided verbal consent to discuss current and ongoing needs with/in the presence of: SISTER DARA. PT REPORTS LIVING AT HOME INDEPENDENTLY AND ALONE. PT HAS BEEN GOING DOWN 13 STEPS TO DOWNSTAIRS BEDROOM, PT'S SISTER REPORTS SHE IS GOING TO FIX A BED ON THE MAIN FLOOR FOR PT UNTIL SHE IS BETTER. PT HAS MEDICAL EQUIPMENT FROM [facility] AND NO OUTSIDE SERVICES ASSISTING IN THE HOME. PT HAS BEEN DRIVING HERSELF TO AND FROM OUTPATIENT DIALYSIS AT [facility], MWF, 0530AM. CM DISCUSSED AVAILABILITY OF HOME HEALTH, REHAB SERVICES AND MEDICAL EQUIPMENT. PT WANTS REHAB AT [facility] AND MAY CONSIDER GOING [place] [facility] LATER. PT DOES NOT WANT TRANSFER TO [facility] NOW, REPORTS HER SISTER OR FRIEND WILL PICK HER UP FOR DISCHARGE HOME. CM PROVIDED PT WITH [employer], INSTRUCTED ON HOW TO FILL OUT AND WHERE TO TURN THE APPLICATION IN AT. PT SIGNED RELEASE OF INFORMATION TO THE [facility], ASKED CM TO FAX TO DR. RICHTER [facility]. CM FAXED RELEASE, H&P, MED LIST AND LABS TO DR. RICHTER AT [facility], FAX [phone]. PT WOULD LIKE TO BE CONSIDERED FOR REHAB, REPORTS HER PAIN TO BE VERY BAD SINCE "BREAKING" HER BACK AND WANTS REHAB AT [facility] IF POSSIBLE. CM TO CONTINUE TO FOLLOW AND ASSIST NEEDED. Insulation Manager: Shar Amaral DCPIA - Discharge Planning Initial Assessment Updated by [id number]: Shar Amaral on 09/16/18 5:07 pm * Is the patient Alert and Oriented? Yes * How many steps to enter\\exit or inside your home? 1-O / 13-I * PCP DR. RICHTER, [facility] OR [facility] * Pharmacy [facility] [address] * Preadmission Environment Home Alone * ADLs Independent * Equipment Cane Nebulizer Oxygen Walker * Other Equipment [facility]QUIPMENT PROVIDER * List name and contact numbers for known caregivers / representatives who currently or will assist patient after discharge: DARA VIERA, SISTER, [place] [phone] * Verbal permission to speak to the caregivers and representatives has been obtained from the patient. Yes * Community resources currently utilized Other [place] Services * Please name any agencies selected above. PT REPORTS 100% [facility] DISABILITY - DECLINES TRANSFER TO [facility], [place], MWF, 0530, PT DRIVES SELF. * Additional services required to return to the preadmission environment? Yes * Can the patient safely return to the preadmission environment? Yes * Has this patient been hospitalized within the prior 30 days at any hospital? No Coverage Notice Reviewer: [id number] Amaral Notice Issued Date-Time: 09/21/2018 11:30 Notice Type: IM Discharge Notice Notice Delivered To: Family Member Relationship to Patient: Sister Rent And Housing Investigator Name: DARA VIERA Delivery Method: HAND - Hand Delivered Ely Days: Prior Verbal Notification: Recipient Understood Notice: Yes Recipient Signature: Yes Med Rec Note Co-signed by Attending: Coverage Notice Comment: Reviewer: NASH Amaral Notice Issued Date-Time: 09/24/2018 9:00 Notice Type: IM Discharge Notice Notice Delivered To: Patient Relationship to Patient: Rent And Housing Investigator Name: Delivery Method: HAND - Hand Delivered Ley Days: Prior Verbal Notification: Recipient Understood Notice: Yes Recipient Signature: Yes Med Rec Note Co-signed by Attending: Coverage Notice Comment: Last DP export: 09/24/18 3:25 p Patient Name: ARTHUR JUNG Page 03229 at 1110 All edits/amendments must be made on the electronic document DICTATION DATE: 10/01/18 110 TRAVEL CONSULTANT: SARA 10/01/18 1109 RPT#: [id number] DC DATE:09/24/18 STATUS: DIS IN [facility] [address] [place] [address] END OF REPORT
--- NOTE | ~2018-09-15 | HEMODYNAMI ---
PATIENT:ARTHUR JUNG MEDICAL RECORD: [id number] : 61 LOCATION:[address] ADMISSION DATE: 09/16/18 Generatedon:09/21/201812:47 Patient name: ARTHUR JUNG Patient #: [id number] SSN : : 1965 Date of study: 09/21/2018 Page: Of Hemodynamic Procedure Report Patient Data Patient Demographics Procedure consent was obtained First Name: ARTHUR Gender: Female Last Name: FABIANA : 1965 Middle Initial: R Age: 53 year(s) Patient #: [id number] Race: Unknown Additional ID: [id number] Contact details [address]: [address] [place] [address] State: [place] City: [place] Zip code: [address] Admission Admission Data Admission Date: 09/16/2018 Admission Time: 10:26 Room #: .2108 Height (in.): 66 BSA: 1.83 (m2) Height (cm.): 167.64 BMI: 26.31 (kg/m2) Weight (lbs.): 163 Weight (kg.): 73.94 Procedure Procedure Types Cath Procedure Peripheral Cath Diagnostic Procedure Linux Administrator Peripheral Procedures Fistula Fistulagram Angio AV Procedure Description Procedure Date Procedure Date: 09/21/2018 Procedure Start Time: 11:55 Procedure Staff Name Function Tip Vaughn MD Performing Physician Eli Cuba RT Scientific Writer Milena Ornelas RN Nurse Nahum Caro RT Scrub Reyna John RN Nurse Procedure Data Cath Procedure Fluoroscopy Diagnostic fluoroscopy Total fluoroscopy Time: 5.9 time: 5.9 min min Diagnostic fluoroscopy Total fluoroscopy dose: 42 dose: 42 mGy mGy Contrast Material Contrast Material Type Amount (ml) Isovue 300 120 Diagnostic catheters Device Type Used For End Catheter Placement Merit Impress KA 2 5Fr 40CM catheter ([id number]) Procedure Medications Medication Administration Route Dosage Oxygen etCO2 Nasal cannula 4 l/min Versed I.V. 2 mg Fentanyl I.V. 50 mcg Lidocaine 1% added to field 20 Heparin Flush Bag added to field 2 bags (1000units/500ml NS) Fentanyl I.V. 50 mcg Versed I.V. 1 mg Versed I.V. 1 mg Fentanyl I.V. 50 mcg Heparin Bolus 3000 units Hemodynamics Rest BSA: 1.83 (m2) O2 Consumption: Estimated: 176.61 (ml/min) O2 Consumption indexed : Estimated:96.51 (ml/min/m) Heart Rate: 71 (bpm) Snapshots Pre Cath Intra NCS Post Cath Vital Signs Time Heart Resp SPO2 etCO2 NIBP (mmHg) Rhythm Pain Sedation Rate (ipm) (%) (mmHg) Status Level (bpm) 11:22:42 74 18 98 40.8 No Cuff NSR 0 (11) 10(A) , No pain 11:24:51 70 9 98 41.5 98/33(63) NSR 0 (11) 10(A) , No pain 11:29:44 72 24 98 35.4 162/83(124) NSR 0 (11) 10(A) , No pain 11:34:10 73 13 98 41.5 152/72(112) NSR 0 (11) 10(A) , No pain 11:38:28 73 15 98 44.5 148/76(102) NSR 0 (11) 9(A) , No pain 11:42:48 75 11 98 25.6 99/45(78) NSR 0 (11) 9(A) , No pain 11:47:16 80 17 100 40 153/72(109) NSR 0 (11) 8(A) , No pain 11:51:30 71 20 96 41.5 137/75(99) NSR 0 (11) 8(A) , No pain 11:55:48 69 11 96 40 141/72(91) NSR 0 (11) 8(A) , No pain 12:00:06 69 13 98 35.4 134/74(113) NSR 0 (11) 8(A) , No pain 12:04:24 71 14 98 37 147/77(99) NSR 0 (11) 8(A) , No pain 12:08:41 68 15 98 27.9 139/76(115) NSR 0 (11) 8(A) , No pain 12:12:59 72 11 96 30.2 156/79(134) NSR 0 (11) 8(A) , No pain 12:17:19 68 11 98 27.1 145/72(115) NSR 0 (11) 8(A) , No pain 12:21:35 69 9 27.9 138/74(95) NSR 0 (11) 8(A) , No pain 12:25:53 68 12 31.7 150/73(115) NSR 0 (11) 8(A) , No pain 12:30:11 69 11 30.2 142/72(119) NSR 0 (11) 8(A) , No pain 12:34:29 67 11 28.7 143/73(104) NSR 0 (11) 8(A) , No pain 12:38:45 68 7 33.1 155/78(122) NSR 0 (11) 8(A) , No pain 12:43:05 68 18 41.4 149/80(130) NSR 0 (11) 8(A) , No pain Medications Time Medication Route Dose Verified Delivered Reason Note s Effectiveness by by 11:37:35 Oxygen etCO2 4l/min Tip Orellana used for Nasal Alvaro Vaughn RN procedure cannula 11:46:12 Versed I.V. 2 mg Tip Mejiaine for sedation Fully awake @ Alvaro Vaughn RN 11:49:58 11:46:23 Fentanyl I.V. 50 mcg Tip Mejiaine for sedation Fully awake @ Alvaro Vaughn RN 11:49:54 11:46:36 Lidocaine 1% added 20ml Tip Whelan used for to vial Roderick Vaughn MD procedure field DE SOUZA 11:46:55 Heparin Flush added 2 bags Tip Whelan used for Bag to Roderick Vaughn MD procedure (1000units/500ml field DE SOUZA NS) 11:49:43 Fentanyl I.V. 50 mcg Tip Mejiaine for sedation Mostly Alvaro Vaughn RN sleeping @ 11:54:23 11:54:11 Versed I.V. 1 mg Tip Reyna for sedation Mostly Alvaro Vaughn RN sleeping @ 12:08:16 12:12:29 Versed I.V. 1 mg Tip Mejiaine for sedation Mostly Alvaro Vaughn RN sleeping @ 12:18:53 12:12:37 Fentanyl I.V. 50 mcg Tip Reyna for sedation Mostly Alvaro Vaughn RN sleeping @ MD 12:18:48 12:18:37 Heparin Bolus 3000 Tip Orellana for units Alvaro Vaughn RN anticoagulation MD Procedure Log Time Note 9:35:27 Patient Height : 66 inches 9:35:31 Patient Weight : 163 lbs 11:19:23 Time tracking: Regular hours (M-F 7:00 - 5:00) 11:19:33 Plan of Care:Hemodynamics will remain stable., Cardiac rhythm will remain stable., Comfort level will be maintained., Respiratory function will remain adequate., Patient/ family verbilizes understanding of procedure., Procedure tolerated without complication., Recovers from procedure without complications.. 11:19:44 Patient received from Nvigen II to IR Alert and oriented. Tansferred to table in Supine position. 11:19:48 Signed procedure consent form obtained from patient. 11:19:57 H&P Date Dictated: 09/21/2018 Within 30 days and on chart.. 11:19:59 Pre-procedure instructions explained to patient. 11:20:00 Pre-op teaching completed and patient verbalized understanding. 11:20:03 Family in waiting room. 11:20:06 Patient NPO since Midnight. 11:20:07 - 11:20:28 Use device set IR Diagnostic 11:20:31 Tegaderm 4 x 4 ([id number]) opened to sterile field. 11:20:32 Sterile Angiographic Pack opened to sterile field. 11:20:33 Bag Decanter () opened to sterile field. 11:20:57 DOC .035 wire ([id number]) opened to sterile field. 11:21:27 Micropuncture VSI 4FR kit opened to sterile field. 11:21:38 - :49 ECG and BP/O2 sat monitors applied to patient. ::51 Vital chart was started ::53 Full Disclosure recording started ::11 Baseline sample Acquired. ::16 Baseline sample Acquired. :23:24 - 11::50 Patient diabetic? No. 11::53 - 11::54 ----Pre-sedation anethsthesia assessment.---- 11::57 Previous problem with sedation/anesthesia? No ? 11:24:01 Snore? No 11:24:03 Sleep apnea? No 11:24:17 Deviated septum? Yes 11:24:21 Opens mouth fully? Yes 11:24:23 Sticks out tongue? Yes 11:24:26 Airway obstruction? No ? 11:24:32 Dentures? No ? 11:24:35 - 11:24:48 IV patent on arrival in right IJ with D5/.45%NaCl at [facility]. 11:24:55 Left Arm area was prepped with chlora-prep and draped in sterile fashio n 11:24:59 - 11:37:35 Oxygen 4l/min etCO2 Nasal cannula was administered by Reyna John RN; used for procedure; 11:46:12 Versed 2 mg I.V. was administered by Reyna John RN; for sedation; 11:46:23 Fentanyl 50 mcg I.V. was administered by Reyna John RN; for sedation; 11:46:36 Lidocaine 1% 20ml vial added to field was administered by Tip Vaughn MD; used for procedure; 11:46:55 Heparin Flush Bag (1000units/500ml NS) 2 bags added to field was administered by Tip Vaughn MD; used for procedure; 11:49:29 Physician arrived 11:49:30 --------ALL STOP TIME OUT------ 11:49:30 Final Timeout: patient, procedure, and site verified with staff and physician. All members of the team are in agreement. 11:49:43 Fentanyl 50 mcg I.V. was administered by Reyna John RN; for sedation; 11:49:54 Effectiveness of Fentanyl delivered @ 11:46:23 is: Fully awake 11:49:58 Effectiveness of Versed delivered @ 11:46:12 is: Fully awake 11:50:07 Procedure started. 11:50:08 Local anesthetic to left arm with Lidocaine 1% by Tip Vaughn MD.INITIAL ACCESS ONLY 11:54:11 Versed 1 mg I.V. was administered by Reyna John RN; for sedation; 11:54:23 Effectiveness of Fentanyl delivered @ 11:49:43 is: Mostly sleeping 11:56:[address] 6FR 5cm sheath opened to sterile field. 11:56:34 GLIDE WIRE ANGLE 180cm (HH4996) opened to sterile field. 11:56:45 A TreFoil Energy KA 2 5Fr 40CM catheter ([id number]) was advanced over the wire and used for . 11:57:12 Venous access obtained using ultrasound guidance. 12:00:17 TORQUE DEVICE PLASTIC .038 ( TD01) opened to sterile field. 12:08:16 Effectiveness of Versed delivered @ 11:54:11 is: Mostly sleeping 12:09:52 GUTIERREZ 80cm wire ([id number]) opened to sterile field. 12:12:29 Versed 1 mg I.V. was administered by Reyna John RN; for sedation; 12:12:37 Fentanyl 50 mcg I.V. was administered by Reyna John RN; for sedation; 12:14:33 GUTIERREZ 260 wire ([id number]) opened to sterile field. 12:14:43 INFLATOR BasixTOUCH (MF3237) opened to sterile field. 12:17:08 Inflate balloon Inflation number: 1 A Evercross 5 x 4 x 135 Balloon ([id number]) was prepped and advanced across the Undefined1, then inflated. 12:18:37 Heparin Bolus 3000 units was administered by Reyna John RN; for anticoagulation; 12:18:48 Effectiveness of Fentanyl delivered @ 12:12:37 is: Mostly sleeping 12:18:53 Effectiveness of Versed delivered @ 12:12:29 is: Mostly sleeping 12:23:13 Inflate balloon Inflation number: 2 A Evercross 6 x 4 x 135 Balloon ([id number]) was prepped and advanced across the Undefined1, then inflated. 12:36:17 Procedure ended.(Physican Out) 12:36:43 Fluoroscopy time 05.90 minutes. 12:36:47 Fluoroscopy dose: 42 mGy 12:36:47 Flurop Dose total: 42 12:39:00 Contrast amount:Isovue 300 120ml. 12:39:04 Procedure and supply charges have been captured, reviewed, submitted an d are correct. 12:47:38 Vital chart was stopped Intervention Summary Intervention Notes Time ActionType Lesion and Equipment Used Action# Pressure Duration Attributes 12:17:08 Inflate Undefined1 Evercross 5 x 4 1 0 00:00 balloon x 135 Balloon ([id number]) 12:23:13 Inflate Undefined1 Evercross 6 x 4 2 0 00:00 balloon x 135 Balloon ([id number]) Device Usage Item Name Manufacture Quantity Catalog Number Hospital Part Current M inimal Lot# / Charge Number Stock Stock Serial# Code Tegaderm 4 x 4 3M 1 [id number] [id number] [id number] 5 (1626W) Sterile Cardinal 1 [id number] 976222 305492 5 Angiographic Health Pack Bag Decanter Microtek 1 042720 75835 994931 5 () Medical Inc. DOC .035 wire Cook Medical 1 [id number] 457438 488489 5 ([id number]) Micropuncture VSI VASCULAR 1 7266V 024428 916225 5 VSI 4FR kit SOLUT[address] 1 946553 912390 347858 5 2449212 sheath GLIDE WIRE Terumo 1 IN5713 167373 873714 080523 5 ANGLE 180cm (PV0773) Merit Impress Merit 1 [id number] 237810 580800 5 KA 2 5Fr 40CM Medical catheter ([id number]) TORQUE DEVICE [place] 1 TD01 622384 230312 585802 5 PLASTIC .038 ( Scientific TD01) GUTIERREZ 80cm wire Cook Medical 1 P47304 589285 984889 5 9847271 ([id number]) GUTIERREZ 260 wire Cook Medical 1 S58509 649111 69486 992251 5 5503800 (O05561) INFLATOR Merit 1 AZ3861 367829 698400 971256 5 [employer]ozu.[employer] (PR9598) Evercross 5 x 4 Medtronic 1 [id number] 276126 630878 870706 5 x 135 Balloon ([id number]) Evercross 6 x 4 Medtronic 1 [id number] 341941 122486 197233 5 x 135 Balloon ([id number]) Signature Audit [place] Stage Time Signature Unsigned Intra-Procedure 09/21/2018 Eli Cuba 12:47:35 PM RT(R) [place] [id number] [place] [address]
--- NOTE | ~2018-09-15 | OP ---
PATIENT NAME: ARTHUR JUNG MEDICAL RECORD: [id number] :61 LOCATION:D.M2 D.2108 ADMISSION DATE:09/16/18 SURGEON: ROGELIO DURAN MD DATE OF OPERATION: 09/24/2018 PREOPERATIVE DIAGNOSIS: End-stage renal disease without functioning chronic access. POSTOPERATIVE DIAGNOSIS: End-stage renal disease without functioning chronic access. PROCEDURES: 1. Insertion of right internal jugular 19 cm HemoSplit catheter under fluoroscopic guidance. 2. Immediate surgeon interpretation of the fluoroscopic images. SURGEON: Rogelio Duran MD FIRST CRUSHER: None. BLOOD LOSS: Minimal. ANESTHESIA: General. COMPLICATIONS: None. The risks, possible complications, and alternatives to procedure were explained to the patient. She elects to proceed. No radiologist was present for this procedure. Static fluoroscopic images were obtained and are kept in the PACS system. The surgeon interpretation of the radiographic images is dictated within the body of this operative note. OPERATIVE COURSE: The patient was conveyed to the operating room electively on 09/24/2018. General anesthesia was induced by the anesthesia staff. The patient's chest and right neck were sterilely prepped and draped. I cut the middle lumen of the Trialysis catheter. I advanced a 0.035 Glidewire up through this catheter and visualized this under fluoroscopy. The sutures from the Trialysis catheter to the neck were cut. A skin incision was accomplished around the base of the wire. A counterincision was accomplished in the anterior superior infraclavicular chest. I tunneled a 19 cm HemoSplit catheter from the chest incision to the neck incision. Over the wire, I inserted a dilator sheath. The dilator and wire were removed. Through the peel-away sheath, I advanced the tips of the HemoSplit catheter. I then peeled away the sheath. I then pulled back on the flange of the HemoSplit catheter seating the catheter in the subcutaneous tissues. The neck incision was closed with a single horizontal mattress 3-0 Vicryl. The flange of the HemoSplit catheter was sutured to the underlying skin with 2-0 nylons. Both lumens flushed easily and aspirated dark, nonpulsatile blood. I then topped off both lumens in the HemoSplit catheter with the appropriate amount of concentrated heparin. Sterile dressings were applied. An image was obtained over the chest and it revealed no apparent kinking or twisting of the HemoSplit catheter. There was no radiographic evidence of OPERATIVE REPORT [id number] ARTHUR JUNG. The longest tip of the HemoSplit catheter appeared to be at the cavoatrial junction. TRANSINT:[id number] Voice Confirmation ID: [id number] DOCUMENT ID: [id number] ROGELIO DURAN MD at 1603 CC: [id number] DICTATION DATE: 09/24/18 0055 COUNTY LIBRARY DIRECTOR: 09/24/18 0132 DIS IN 09/24/18 [facility] [address] [place] [address]
--- NOTE | ~2018-09-15 | MORECARE ---
CASE MANAGEMENT DISCHARGE SUMMARY PATIENT: ARTHUR JUNG UNIT: [id number] ADM DATE: 09/16/18 AGE: 53 : 61 SEX: F ROOM/BED: D.2108 AUTHOR: LIDA LEPE PHYSICIAN: REFERRING PHYSICIAN: ARACELI QUINTANA MD DATE OF SERVICE: 09/21/18 Discharge Plan Patient Name: ARTHUR JUNG [facility] [facility] 1965 Planned Disposition: Inpatient Rehab Anticipated Discharge Date: 09/22/18 Discharge Date: Expected LOS: 6 Initial Reviewer: [email or web address] Initial Review Date: 09/16/2018 Generated: 09/21/18 1:08 pm Comments DCP- Discharge Planning Updated by [email or web address]: Zuleima Shadia on 09/18/18 2:[address] CM SPOKE WITH PATIENT'S SISTER DARA REQUESTED BY NURSE. DARA WAS WANTING AN UPDATE ABOUT HER SISTER AND THE PLAN ON HER BEING DIALIZED. I LET HER KNOW THERE IS AN ORDER FOR A TRIALYSIS CATH TO BE PLACED TODAY AND THEN SHE SHOULD BE ABLE TO GO TO DIALYSIS. DR. WILCOX ENTERED ROOM WHILE I WAS IN THERE. PATIENT STATES ONCE SHE IS BETTER SHE WOULD LIKE IN PT REHAB HERE AT THE HOSPITAL. SISTER IS INTERESTED IN GETTING ANOTHER POA. STATES SHE HAS ONE AT HOME BUT WANTS INFO OF DOING ONE HERE. CM WILL CALL AND GET INFO ABOUT HOSPITAL PROCEDURE OF A POA. DCP- Discharge Planning Updated by [id number]: Shar Amaral on 09/16/18 4:[address] Patient Name: ARTHUR JUNG Admission Status: ER Accout number: [id number] Admission Date: 09-16-2018 : 1965 Admission Diagnosis: Attending: ARACELI QUINTANA Current LOS: 1 Anticipated DC Date: 09-18-2018 Planned Disposition: Inpatient Rehab Primary Insurance: MEDICARE A & B PLANNED EXTERNAL PROVIDER: [facility] INPATIENT [facility]AB Discharge Planning Comments: CM MET WITH PT'S SISTER DARA IN [facility] WHO ASKED FOR RESOURCE TO ASSIST PT WITH GETTING TO AND FROM HOME AND DIALYSIS, ASKED CM TO FAX RECORDS TO [place] DR[facility] RICHTER. CM MET WITH PT AND SISTER IN ROOM TO DISCUSS DISCHARGE PLANNING AND NEEDS. ARTHUR JUNG provided verbal consent to discuss current and ongoing needs with/in the presence of: SISTER DARA. PT REPORTS LIVING AT HOME INDEPENDENTLY AND ALONE. PT HAS BEEN GOING DOWN 13 STEPS TO DOWNSTAIRS BEDROOM, PT'S SISTER REPORTS SHE IS GOING TO FIX A BED ON THE MAIN FLOOR FOR PT UNTIL SHE IS BETTER. PT HAS MEDICAL EQUIPMENT FROM [facility] AND NO OUTSIDE SERVICES ASSISTING IN THE HOME. PT HAS BEEN DRIVING HERSELF TO AND FROM OUTPATIENT DIALYSIS AT [facility], MWF, 0530AM. CM DISCUSSED AVAILABILITY OF HOME HEALTH, REHAB SERVICES AND MEDICAL EQUIPMENT. PT WANTS REHAB AT [facility] AND MAY CONSIDER GOING TO THE [facility] LATER. PT DOES NOT WANT TRANSFER TO [facility] NOW, REPORTS HER SISTER OR FRIEND WILL PICK HER UP FOR DISCHARGE HOME. CM PROVIDED PT WITH [employer] TRANSIT APPLICATION, INSTRUCTED ON HOW TO FILL OUT AND WHERE TO TURN THE APPLICATION IN AT. PT SIGNED RELEASE OF INFORMATION TO THE [facility], ASKED CM TO FAX TO DR. RICHTER AT [facility]. CM FAXED RELEASE, H&P, MED LIST AND LABS TO DR. RICHTER AT [facility], FAX [phone]. PT WOULD LIKE TO BE CONSIDERED FOR REHAB, REPORTS HER PAIN TO BE VERY BAD SINCE "BREAKING" HER BACK AND WANTS REHAB AT [facility] IF POSSIBLE. CM TO CONTINUE TO FOLLOW AND ASSIST NEEDED. Marine Equipment Sales Engineer: Shar Amaral INPIA - Discharge Planning Initial Assessment Updated by [id number]: Shar Amaral on 09/16/18 5:07 pm * Is the patient Alert and Oriented? Yes * How many steps to enter\\exit or inside your home? 1-O / 13-I * PCP DR. RICHTER, [facility] OR [facility] * Pharmacy [facility] [address] * Preadmission Environment Home Alone * ADLs Independent * Equipment Cane Nebulizer Oxygen Walker * Other Equipment [facility] MEDICAL EQUIPMENT PROVIDER * List name and contact numbers for known caregivers / representatives who currently or will assist patient after discharge: DARA VIERA, SISTER, [place] [phone] * Verbal permission to speak to the caregivers and representatives has been obtained from the patient. Yes * Community resources currently utilized Other [facility] Services * Please name any agencies selected above. PT REPORTS 100% [facility] DIS[facility], MWF, 0530, PT DRIVES SELF. * Additional services required to return to the preadmission environment? Yes * Can the patient safely return to the preadmission environment? Yes * Has this patient been hospitalized within the prior 30 days at any hospital? No Coverage Notice Reviewer: [id number] Buck Amaral Notice Issued Date-Time: 09/21/2018 11:30 Notice Type: IM Discharge Notice Notice Delivered To: Family Member Relationship to Patient: Sister Senior Administrative Support Name: DARA VIERA Delivery Method: HAND - Hand Delivered Ely Days: Prior Verbal Notification: Recipient Understood Notice: Yes Recipient Signature: Yes Med Rec Note Co-signed by Attending: Coverage Notice Comment: Last DP export: 09/21/18 7:45 Patient Name: ARTHUR JUNG Page [id number] at 1208 All edits/amendments must be made on the electronic document DICTATION DATE: 09/21/181207 MINE EXPERT: SARA 09/21/18 1208 RPT#: [id number] DC DATE: STATUS: ADM IN [facility] [address] [place] [address] END OF REPORT
--- NOTE | ~2018-09-15 | OP ---
PATIENT NAME: ARTHUR JUNG MEDICAL RECORD: [id number] :61 LOCATION:D. D.2108 ADMISSION DATE:09/16/18 SURGEON: ROGELIO DURAN MD DATE OF OPERATION: 09/19/2018 PREOPERATIVE DIAGNOSES: End-stage renal disease without a chronic access for hemodialysis, in need of urgent dialysis. POSTOPERATIVE DIAGNOSES: End-stage renal disease without a chronic access for hemodialysis, in need of urgent dialysis. PROCEDURE: Insertion of right neck Trialysis catheter. SURGEON: Rogelio Duran MD AIR BOX TESTER: None. BLOOD LOSS: Minimal. ANESTHESIA: Local. The risks, possible complications, and alternatives to the procedure were explained to the patient. She elects to proceed. OPERATIVE COURSE: The entire procedure was performed in the presence of a female nurse. The patient was positioned in a Trendelenburg position. The right neck was sterilely prepped and draped. Under ultrasonographic guidance, I was able to access the internal jugular vein. I could not get a guidewire to thread very far down the internal jugular vein indicating that there may be stenosis in the internal jugular vein. Local anesthetic was used to infiltrate the skin and subcutaneous tissues at the base of the right neck on the right. I was able to percutaneously access the subclavian vein utilizing a supraclavicular approach in an antegrade fashion. A guidewire passed easily. A small skin isabel was accomplished. A vessel dilator was used to dilate the subcutaneous tract. A Trialysis catheter was inserted to the hub. It was sutured in place times 3. All lumens flushed easily and aspirated dark, nonpulsatile blood. A stat chest x-ray is pending. TRANSINT:[id number] Voice Confirmation ID: [id number] DOCUMENT ID: [id number] ROGELIO DURAN MD at 1617 CC: [id number] DICTATION DATE: 09/19/18 1251 CITY BAILIFF: 09/19/18 1306 ADM IN [place] [id number] [place] [id number]
[~2018-09-15 20:38] MED LIST changes: +DURAGESIC TD; -DURAGESIC1 PATCH .1 TRANSDERM; +NORCO 10-325 TA1 TAB PO
[2018-09-15 21:55] LABS: BASOPHILS 0.7 % (0-2); EOSINOPHILS 6.6 % (0-7); HEMATOCRIT 35.4 % (36.0-48.0); HEMOGLOBIN 11.5 g/dL (12-16); IMMATURE GRANULOCYTES 0.2 % (0-5); LYMPHOCYTES 29.4 % (15-50); MCH 31.5 pg (26.0-34.0); MCHC 32.5 g/dL (31.0-37.0); MEAN PLATELET VOLUME 10.1 fL (7.4-10.4); MONOCYTES 8.7 % (2-11); NEUTROPHILS 54.4 % (40-80); PLATELET COUNT 108 10x3/uL (130-400); RBC 3.65 10x6/uL (4.00-5.40); RDW 12.9 % (11.5-14.5); WBC 4.3 10x3/uL (4.8-10.8)
[2018-09-15 22:06] LABS: ALBUMIN 3.3 g/dL (3.4-5.0); ANION GAP 18.8 mmol/L (8-16); BILIRUBIN - TOTAL 0.31 mg/dL (0.2-1.3); CALCIUM 8.2 mg/dL (8.5-10.1); CARBON DIOXIDE 26.6 mmol/L (21.0-32.0); CREATININE - SERUM 7.7 mg/dL (0.6-1.3); POTASSIUM - SERUM 4.4 mmol/L (3.5-5.1); PROTEIN - SERUM 6.4 g/dL (6.4-8.2)
[2018-09-16] MEDS ORDERED: PAXIL20 MG PO (00:19)
[2018-09-16 04:00] VITALS: BP 134/60
[2018-09-16 05:09] VITALS: BP 144/60; BMI 23.3
[2018-09-16 06:14] LABS: BASOPHILS 0.5 % (0-2); EOSINOPHILS 5.4 % (0-7); HEMATOCRIT 32.4 % (36.0-48.0); HEMOGLOBIN 10.4 g/dL (12-16); IMMATURE GRANULOCYTES 0.2 % (0-5); LYMPHOCYTES 27.9 % (15-50); MCH 31.3 pg (26.0-34.0); MCHC 32.1 g/dL (31.0-37.0); MCV 97.6 fL (80.0-100.0); MEAN PLATELET VOLUME 10.6 fL (7.4-10.4); MONOCYTES 10.9 % (2-11); NEUTROPHILS 55.1 % (40-80); PLATELET COUNT 113 10x3/uL (130-400); RBC 3.32 10x6/uL (4.00-5.40); RDW 12.8 % (11.5-14.5); WBC 4.2 10x3/uL (4.8-10.8)
[2018-09-16 06:51] LABS: ALBUMIN 2.9 g/dL (3.4-5.0); BILIRUBIN - TOTAL 0.23 mg/dL (0.2-1.3); CALCIUM 8.2 mg/dL (8.5-10.1); CARBON DIOXIDE 27.7 mmol/L (21.0-32.0); CREATININE - SERUM 8.4 mg/dL (0.6-1.3); POTASSIUM - SERUM 4.7 mmol/L (3.5-5.1); PROTEIN - SERUM 5.6 g/dL (6.4-8.2)
[2018-09-16 08:38] VITALS: BP 117/57
[2018-09-16 16:31] VITALS: BP 107/52
[2018-09-16 20:00] VITALS: BP 125/85
[2018-09-17] VITALS (12 sets, daily range): BP systolic 106–142; BP diastolic 53–79; BMI 23.3
[2018-09-17 08:49] LABS: APTT 26.8 SECONDS (22.8-39.4); INR 0.99 (0.85-1.17); PROTIME 12.7 SECONDS (11.6-15.0)
[2018-09-18] VITALS: BP 112/60
[2018-09-18 04:00] VITALS: BP 115/60
[2018-09-18 08:20] VITALS: BP 140/67
[2018-09-18 14:14] VITALS: BP 110/67
[2018-09-18 20:00] VITALS: BP 150/99
[2018-09-19 00:10] VITALS: BP 149/66
[2018-09-19 04:00] VITALS: BP 146/61
[2018-09-19 07:40] VITALS: BP 150/65
[2018-09-19 10:40] VITALS: BP 130/83
[2018-09-19 12:48] VITALS: Ht 167.6 cm; Wt 73.3 kg
[2018-09-19 14:34] VITALS: BP 136/62
[2018-09-19 20:00] VITALS: BP 123/54
[2018-09-20 04:00] VITALS: BP 142/66
[2018-09-20 08:37] VITALS: BP 126/61
[2018-09-20 13:33] VITALS: BP 119/56
[2018-09-20 16:04] VITALS: BP 116/47
[2018-09-20 20:19] VITALS: BP 127/59
[2018-09-21] VITALS (9 sets, daily range): BP systolic 126–149; BP diastolic 52–79
[2018-09-21 10:33] LABS: BASOPHILS 0.2 % (0-2); EOSINOPHILS 6.4 % (0-7); HEMATOCRIT 25.6 % (36.0-48.0); HEMOGLOBIN 8.6 g/dL (12-16); IMMATURE GRANULOCYTES 0.2 % (0-5); LYMPHOCYTES 13.5 % (15-50); MCH 31.9 pg (26.0-34.0); MCHC 33.6 g/dL (31.0-37.0); MCV 94.8 fL (80.0-100.0); MEAN PLATELET VOLUME 9.4 fL (7.4-10.4); NEUTROPHILS 64.7 % (40-80); PLATELET COUNT 128 10x3/uL (130-400); WBC 4.9 10x3/uL (4.8-10.8)
[2018-09-21 10:41] LABS: ANION GAP 11.7 mmol/L (8-16); CALCIUM 8.4 mg/dL (8.5-10.1); CARBON DIOXIDE 28.5 mmol/L (21.0-32.0); CREATININE - SERUM 6.6 mg/dL (0.6-1.3); POTASSIUM - SERUM 4.2 mmol/L (3.5-5.1)
[2018-09-21 10:43] LABS: INR 0.99 (0.85-1.17); PROTIME 12.7 SECONDS (11.6-15.0)
[2018-09-22 01:25] VITALS: BP 114/62
[2018-09-22 05:03] VITALS: BP 150/73
[2018-09-22 09:02] VITALS: BP 125/56
[2018-09-22 11:20] VITALS: BP 143/70
[2018-09-22 15:45] VITALS: BP 153/84
[2018-09-22 20:26] VITALS: BP 140/69
[2018-09-23 01:01] VITALS: BP 132/61
[2018-09-23 04:48] VITALS: BP 116/49
[2018-09-23 08:23] VITALS: BP 139/59
[2018-09-23 12:14] VITALS: BP 125/56
[2018-09-23 20:00] VITALS: BP 119/61
[2018-09-24 01:46] VITALS: BP 150/77
[2018-09-24 04:00] VITALS: BP 140/70
[2018-09-24 10:40] VITALS: BP 178/65
[2018-09-24] MEDS ORDERED: SENSIPAR30 MG PO (14:52)
[2018-09-24] MEDS ORDERED: MIRALAX17 GM PO (14:54)
[2018-09-24] MEDS ORDERED: RENVELA800 MG PO (14:54)
[2018-09-24] MEDS ORDERED: VALIUM5 MG PO (14:56)
[2018-09-24 15:32] VITALS: BP 157/80
== END 2018-09-24 18:25 | DRG 515 ==
LOC: D.ER 20:38 → D.M2 23:02 → OBSVTIME 23:02 → D.M2 23:02
PROVIDERS: Family Medicine; General Practice
PROC: B51W1ZZ Fluoroscopy of Dialysis Shunt/Fistula using Low Osmolar Contrast (ICD-10-PCS; 2018-09-17)
PROC: 02HV33Z Insertion of Infusion Device into Superior Vena Cava, Percutaneous Approach (ICD-10-PCS; 2018-09-19)
PROC: B548ZZA Ultrasonography of Superior Vena Cava, Guidance (ICD-10-PCS; 2018-09-19)
PROC: B51W1ZZ Fluoroscopy of Dialysis Shunt/Fistula using Low Osmolar Contrast (ICD-10-PCS; 2018-09-21)
PROC: 037Y3ZZ Dilation of Upper Artery, Percutaneous Approach (ICD-10-PCS; principal; 2018-09-21 11:50)
PROC: 3E0R33Z Introduction of Anti-inflammatory into Spinal Canal, Percutaneous Approach (ICD-10-PCS; 2018-09-22)
PROC: 3E0R3BZ Introduction of Anesthetic Agent into Spinal Canal, Percutaneous Approach (ICD-10-PCS; 2018-09-22)
PROC: 0JH63XZ Insertion of Tunneled Vascular Access Device into Chest Subcutaneous Tissue and Fascia, Percutaneous Approach (ICD-10-PCS; 2018-09-24)
PROC: 05HY33Z Insertion of Infusion Device into Upper Vein, Percutaneous Approach (ICD-10-PCS; 2018-09-24)
DX: S32.009A Unspecified fracture of unspecified lumbar vertebra, initial encounter for closed fracture (principal); N18.6 End stage renal disease; T82.868A Thrombosis due to vascular prosthetic devices, implants and grafts, initial encounter; W19.XXXA Unspecified fall, initial encounter; Z99.2 Dependence on renal dialysis; F41.9 Anxiety disorder, unspecified; Y83.8 Other surgical procedures as the cause of abnormal reaction of the patient, or of later complication, without mention of misadventure at the time of the procedure; M54.16 Radiculopathy, lumbar region

== ENCOUNTER 2018-09-24 17:02 | Inpatient (IN) | payer MEDICARE, BC ==
[~2018-09-24] VITALS: Ht 167.6 cm; Wt 68.9 kg
--- NOTE | ~2018-09-24 | RHP ---
PATIENT: ARTHUR JUNG MEDICAL RECORD: [id number] ACCOUNT: [id number] LOCATION:DAGOBERTO Diop1111 : [birth year] ADMISSION DATE: 09/24/18 REHABILITATION HISTORY AND PHYSICAL EXAMINATION POST ADMISSION PHYSICIAN EXAMINATION DATE OF ADMISSION: 09/24/2018 ADMITTING DIAGNOSES: Nondisplaced right transverse process fracture of L4-L5 HISTORY OF PRESENT ILLNESS: The patient has been admitted to inpatient rehab from orthopedic reason, a nondisplaced right transverse fracture of L4-L5 with a noted radiculopathy secondary to trauma from fall. She is a 53-year-old female patient with end-stage renal disease who fell and injured her back. Seen in the Emergency Room Department at [facility] and released home. She continued to have severe pain, was admitted through the [facility] pediatric secondary to severe pain. MRI was done. It did show a contusion or possible stress reaction to her left femur. It also showed multilevel problems with her back, mainly spondylosis and also noted to have a transverse process fracture. Apparently, the patient had slipped and fallen, hit her right flank and right buttock. She was complaining of severe pain, seen by neurosurgery, placed on therapy, but no surgical intervention. She had a spinal injection by the radiologist. She has had difficulty with her hemodialysis access during her acute hospital stay. She has undergone 2 fistulograms. She now has a Trialysis catheter due to these complications. She continues to require supplemental O2, IV pain medicine. Her H&H has been somewhat decreased probably secondary to anemia of chronic disease. She has impaired mobility. She does hemodialysis 3 times weekly. She does live alone. She has 13 steps to her bedroom. She has had weakness, self-care deficits. These were all barriers to her discharge at this time. She does live alone. She was independent with her ADLs and mobility prior to this. She is currently set up for mod assist with her ADLs and mod assist for mobility. She plans to return home at her prior level of functioning or better after acute inpatient rehab stay. COMORBIDITIES: In this patient include radiculopathy secondary to fall, lumbar transverse process fracture, dialysis, irretractable pain, sacroiliac joint strain, lumbar pain, cellulitis, pneumonia, hypotension, dialysis complications and end-stage renal disease. PAST MEDICAL HISTORY: Significant for cervical cancer, anxiety, end-stage renal disease, renal failure requiring hemodialysis, joint pain. PAST SURGICAL HISTORY: Includes gallbladder surgery, appendectomy, tonsillectomy and adenoidectomy. She has had a plantar fasciitis problem. She has had a vertical band gastroplasty, Tesio fistula. ALLERGIES: PROZAC, DEMEROL, ASPIRIN, ATIVAN, AND ERYTHROMYCIN. CURRENT MEDICATIONS: Include a Duragesic patch 100 mcg every 72 hours; she is on Renagel 2400 mg t.i.d. with meals; Paxil 20 mg daily; Sensipar 30 mg daily; Coreg 6.25 mg b.i.d. with meals; Valium 5 mg b.i.d. p.r.n.; Xanax 0.5 mg t.i.d. She is on Combivent MDI 2 puffs every 4 hours p.r.n.; Levsin 0.25 mg q.i.d. p.r.n.; Superior 10/325 one tab every 4 hours p.r.n.; and MiraLax 17 g in 8 ounces of water daily. HISTORY AND PHYSICAL [id number] ARTHUR JUNG HABITS: No alcohol or tobacco use. FAMILY HISTORY: Noncontributory. SOCIAL HISTORY: The patient hopes to return back home and get back to her prior level of functioning. REVIEW OF SYSTEMS: GENERAL: Does complain of a little bit of weakness and fatigue. HEENT: Denies cold, cough, or congestion. CARDIOVASCULAR: Denies chest pain. PHYSICAL EXAMINATION: VITAL SIGNS: Stable, afebrile. GENERAL: Well-developed female, in no acute distress upon exam. HEENT: Normocephalic and atraumatic. Mucosa moist. NECK: Supple, with no lymphadenopathy. LUNGS: Clear at this time. HEART: Regular rate and rhythm. ABDOMEN: Benign. EXTREMITIES: No clubbing, cyanosis or edema. NEUROLOGIC: She does have noted pain to movement. LABORATORY DATA: No blood work has been received today. ASSESSMENT: This is a 53-year-old female patient admitted to rehab with a working diagnosis of transverse process fracture. The patient has potential to make improvement. We instituted the following multidisciplinary therapies including, but not limited to physical, occupational, respiratory, speech, nutritional services, prosthetics and orthotics. Given her complex medical condition and risks for more complications, rehabilitation services cannot be provided at a low level of care such as nursing home facility. PLAN: 1. Admit to [facility] for intensive inpatient therapy to include the following disciplines: A. Physical therapy to improve gait, all transfer skills and bed mobility to a modified independent level. B. Occupational therapy to a modified independent level. C. Case management to assist with discharge planning and placement options. D. Nutrition to assist with nutritional needs. E. Rehabilitation nursing to assist in monitoring the patient's underlying medical conditions and to assist with any type of bowel or bladder management. 2. The patient's current medications will be continued. 3. The patient will be placed on standard fall precautions. 4. The patient's estimated length of stay is approximately 7 to 10 days. 5. Discuss this patient during care team staff meeting this week. TRANSINT:[id number] Voice Confirmation ID: [id number] DOCUMENT ID: [id number] JOSUE notes whether there has been none or any medical/functional change since admission: - No change since preadmission screen. HISTORY AND PHYSICAL [id number] ARTHUR JUNG attests patient continues to be appropriate for IRF: - Continues to be appropriate. MATEO TIJERINA MD at 0818 CC: [id number] DICTATION DATE: 09/25/18828 ADOBE BLOCK MAKER: 09/25/18 0909 ADM IN [place] [id number] [place] [id number]
--- NOTE | ~2018-09-24 | DS ---
PATIENT:ARTHUR JUNG :61 MEDICAL RECORD: [id number] DISCHARGE SUMMARY ADMISSION DATE: 09/24/18 DISCHARGE DATE: 09/29/18 This is a discharge dated 09/29/2018 from inpatient rehabilitation. PRIMARY DIAGNOSIS: Decreased functional ability and ability to provide activities of daily living secondary to intractable pain with a right transverse fracture of L4-L5. SECONDARY DIAGNOSES: 1. Radiculopathy. 2. Status post fall. 3. End-stage renal disease, on chronic hemodialysis. 4. Hemodialysis access complications. 5. Cellulitis of the upper extremity. 6. Anemia of chronic disease. 7. Anxiety/depression. 8. History of cervical cancer. 9. Hypotension. 10. Secondary hyperparathyroidism. CONSULTANTS FOLLOWING THIS HOSPITALIZATION: Nephrology with Dr. Friedman. HOSPITAL COURSE: Full H&P is located elsewhere on the chart on this 53-year-old female who was admitted to inpatient rehab for physical therapy and occupational therapy to improve gait, transfer skills, bed mobility, and activities of daily living to a modified independent level. She was evaluated by PT and OT and their plans of care were followed. She required snf care for observation and assessment, medication administration. She continued her 3 times weekly hemodialysis during this hospital stay and was followed by nephrology. She remained on appropriate home medications. They did have difficulty cannulating her dialysis access and she had a dialysis catheter placed, which was used for dialysis during her hospital stay. She was cooperative with therapies, progressing towards goals. Case management was involved for discharge planning. She was considered stable for discharge on 09/29/2018. DISCHARGE MEDICATIONS: As per discharge medication reconciliation. DISCHARGE DISPOSITION: The patient is discharged home. She will continue her current diet and level of activity. She will have home health for PT and OT and will follow up with primary care and specialists as directed. At least 30 minutes was spent in this discharge activity. TRANSINT:[id number] Voice Confirmation ID: [id number] DOCUMENT ID: [id number] Dictated By: VANESSA DORAN I have interviewed/examined the above patient and agree with these documented findings. DISCHARGE SUMMARY REPORT [id number] ARTHUR JUNG SCOTT MD CC: [id number] DICTATION DATE: 10/25/18 1529 AUTOMATION TESTER: 10/26/18 0813 DIS IN 09/29/18 [place] [id number] [place] [address]
[~2018-09-24 17:02] MED LIST changes: +MIRALAX17 GM PO; +PAXIL20 MG PO; +SENSIPAR30 MG PO; +VALIUM5 MG PO
[2018-09-24 19:00] VITALS: BP 135/58
[2018-09-24 22:55] VITALS: BP 135/58; BMI 24.6
[2018-09-25 08:00] VITALS: BP 158/71
[2018-09-25 12:00] VITALS: BP 160/68
[2018-09-25 14:00] VITALS: Ht 167.6 cm; Wt 68.9 kg
[2018-09-25 15:23] LABS: BASOPHILS 0.5 % (0-2); EOSINOPHILS 6.9 % (0-7); HEMATOCRIT 23.5 % (36.0-48.0); HEMOGLOBIN 7.6 g/dL (12-16); IMMATURE GRANULOCYTES 0.4 % (0-5); LYMPHOCYTES 14.2 % (15-50); MCH 31.5 pg (26.0-34.0); MCHC 32.3 g/dL (31.0-37.0); MCV 97.5 fL (80.0-100.0); MEAN PLATELET VOLUME 9.5 fL (7.4-10.4); MONOCYTES 14.8 % (2-11); NEUTROPHILS 63.2 % (40-80); PLATELET COUNT 146 10x3/uL (130-400); RBC 2.41 10x6/uL (4.00-5.40); RDW 13.8 % (11.5-14.5); WBC 5.5 10x3/uL (4.8-10.8)
[2018-09-25 15:31] LABS: ANION GAP 13.1 mmol/L (8-16); CALCIUM 8.1 mg/dL (8.5-10.1); CARBON DIOXIDE 30.1 mmol/L (21.0-32.0); POTASSIUM - SERUM 5.2 mmol/L (3.5-5.1)
[2018-09-25 18:14] VITALS: BP 149/64
[2018-09-25 23:40] VITALS: BP 106/78
[2018-09-26 05:38] VITALS: BP 130/74
[2018-09-26 10:59] VITALS: BP 122/56
[2018-09-26 18:40] VITALS: BP 128/62
[2018-09-27] VITALS: BP 132/74
[2018-09-27 12:39] VITALS: BP 148/77
[2018-09-27 18:14] VITALS: BP 145/69
[2018-09-27 22:30] VITALS: BP 144/67
[2018-09-28 06:17] VITALS: BP 134/71
[2018-09-28 08:00] VITALS: BP 156/75
[2018-09-28 12:24] VITALS: BP 130/68
[2018-09-28 17:15] VITALS: BP 160/66
[2018-09-28 18:44] LABS: BASOPHILS 0.6 % (0-2); HEMATOCRIT 23.5 % (36.0-48.0); HEMOGLOBIN 7.6 g/dL (12-16); IMMATURE GRANULOCYTES 0.3 % (0-5); LYMPHOCYTES 14.1 % (15-50); MCH 31.7 pg (26.0-34.0); MCHC 32.3 g/dL (31.0-37.0); MCV 97.9 fL (80.0-100.0); MEAN PLATELET VOLUME 9.6 fL (7.4-10.4); MONOCYTES 8.8 % (2-11); NEUTROPHILS 68.2 % (40-80); PLATELET COUNT 165 10x3/uL (130-400); RDW 13.9 % (11.5-14.5); WBC 7.2 10x3/uL (4.8-10.8)
[2018-09-28 18:56] LABS: ANION GAP 14.6 mmol/L (8-16); CALCIUM 8.1 mg/dL (8.5-10.1); CARBON DIOXIDE 30.3 mmol/L (21.0-32.0); CREATININE - SERUM 5.7 mg/dL (0.6-1.3); POTASSIUM - SERUM 4.9 mmol/L (3.5-5.1)
[2018-09-28 21:19] VITALS: BP 145/73
[2018-09-29 06:37] VITALS: BP 151/74
[2018-09-29] MEDS ORDERED: Duragesic TRANSDERM (08:16)
[2018-09-29] MEDS ORDERED: Percocet-10 PO (08:17)
[2018-09-29 08:26] VITALS: BP 146/59
== END 2018-09-29 11:35 | disposition home or self-care (01) | DRG 559 ==
LOC: D.REHAB 17:02
PROVIDERS: Emergency Medicine
DX: S32.059D Unspecified fracture of fifth lumbar vertebra, subsequent encounter for fracture with routine healing (principal); J18.9 Pneumonia, unspecified organism; N18.6 End stage renal disease; L03.119 Cellulitis of unspecified part of limb; W19.XXXD Unspecified fall, subsequent encounter; Z99.2 Dependence on renal dialysis; M54.10 Radiculopathy, site unspecified; I95.9 Hypotension, unspecified; R53.1 Weakness; M47.9 Spondylosis, unspecified; S39.012D Strain of muscle, fascia and tendon of lower back, subsequent encounter; I50.9 Heart failure, unspecified

== ENCOUNTER 2018-12-08 19:11 | Emergency (ER) | payer MEDICARE, BC ==
[~2018-12-08] VITALS: Ht 167.6 cm; Wt 66.7 kg
[~2018-12-08 19:11] MED LIST changes: +Duragesic TRANSDERM; +Percocet-10 PO
[2018-12-08 19:30] VITALS: Ht 167.6 cm; Wt 66.7 kg
[2018-12-08 20:40] LABS: BASOPHILS 0.6 % (0-2); EOSINOPHILS 5.6 % (0-7); HEMATOCRIT 33.9 % (36.0-48.0); IMMATURE GRANULOCYTES 0.2 % (0-5); MCH 32.4 pg (26.0-34.0); MCHC 32.4 g/dL (31.0-37.0); MCV 99.7 fL (80.0-100.0); MEAN PLATELET VOLUME 10.4 fL (7.4-10.4); MONOCYTES 6.2 % (2-11); NEUTROPHILS 59.4 % (40-80); PLATELET COUNT 134 10x3/uL (130-400); RDW 13.3 % (11.5-14.5)
[2018-12-08 20:54] LABS: INR 1.07 (0.85-1.17); PROTIME 13.4 SECONDS (11.6-15.0)
[2018-12-08 20:55] LABS: APTT 32.5 SECONDS (22.8-39.4)
[2018-12-08 20:56] LABS: ALBUMIN 3.3 g/dL (3.4-5.0); ALKALINE PHOSPHATASE 73 U/L (46-116); ALT (SGPT) 18 U/L (10-68); BILIRUBIN - TOTAL 0.73 mg/dL (0.2-1.3); CALC OSMOLALITY 288 mosm/kg (275-300); CALCIUM 8.5 mg/dL (8.5-10.1); CARBON DIOXIDE 25.2 mmol/L (21.0-32.0); CHLORIDE - SERUM 101 mmol/L (98-107); CREATININE - SERUM 7.6 mg/dL (0.6-1.3); GLUCOSE 108 mg/dL (74-106); POTASSIUM - SERUM 5.4 mmol/L (3.5-5.1); PROTEIN - SERUM 6.1 g/dL (6.4-8.2); SODIUM 137 mmol/L (136-145); UREA NITROGEN 51 mg/dL (7-18); eGFR NON AFRICAN AMERICAN 6 mL/min (90-120)
[2018-12-08 21:08] LABS: CKMB 1.2 U/L (0.0-3.6); CREATINE KINASE 44 UL (21-215)
[2018-12-08 21:39] LABS: PRO BNP 22524 pg/mL (0-125)
[2018-12-08] MEDS ORDERED: LEVOFLOXACIN500 MG PO (21:50)
[2018-12-08] MEDS ORDERED: VENTOLIN HFA18 GM INH (21:50)
[2018-12-08 22:50] VITALS: BP 166/83
== END 2018-12-08 22:51 | disposition home or self-care (01) ==
LOC: D.ER 19:11
PROVIDERS: Family Medicine
DX: N18.6 End stage renal disease (principal); Z99.2 Dependence on renal dialysis; R05 Cough; J81.1 Chronic pulmonary edema; R06.02 Shortness of breath

== ENCOUNTER 2018-12-13 11:37 | Emergency (ER) | payer MEDICARE, BC ==
[~2018-12-13] VITALS: Ht 167.6 cm; Wt 67.4 kg
[~2018-12-13 11:37] MED LIST changes: +LEVOFLOXACIN500 MG PO; +VENTOLIN HFA18 GM INH
[2018-12-13 11:39] VITALS: Ht 167.6 cm; Wt 67.4 kg
[2018-12-13 12:47] LABS: BASOPHILS 0.3 % (0-2); EOSINOPHILS 2.1 % (0-7); HEMATOCRIT 32.9 % (36.0-48.0); HEMOGLOBIN 10.7 g/dL (12-16); IMMATURE GRANULOCYTES 0.3 % (0-5); LYMPHOCYTES 8.2 % (15-50); MCH 32.5 pg (26.0-34.0); MCHC 32.5 g/dL (31.0-37.0); MEAN PLATELET VOLUME 10.1 fL (7.4-10.4); MONOCYTES 9.1 % (2-11); PLATELET COUNT 110 10x3/uL (130-400); RBC 3.29 10x6/uL (4.00-5.40); WBC 10.3 10x3/uL (4.8-10.8)
[2018-12-13 13:00] LABS: ALBUMIN 3.2 g/dL (3.4-5.0); ANION GAP 19.2 mmol/L (8-16); BILIRUBIN - TOTAL 0.73 mg/dL (0.2-1.3); CALCIUM 8.8 mg/dL (8.5-10.1); CARBON DIOXIDE 24.2 mmol/L (21.0-32.0); CREATININE - SERUM 8.6 mg/dL (0.6-1.3); POTASSIUM - SERUM 5.4 mmol/L (3.5-5.1); PROTEIN - SERUM 5.9 g/dL (6.4-8.2)
[2018-12-13 14:52] VITALS: BP 148/83
== END 2018-12-13 14:52 | disposition home or self-care (01) ==
LOC: D.ER 11:37
PROVIDERS: Emergency Medicine
DX: N18.9 Chronic kidney disease, unspecified (principal); Z99.2 Dependence on renal dialysis; Z87.01 Personal history of pneumonia (recurrent); M79.18 Myalgia, other site; R50.9 Fever, unspecified; Z85.41 Personal history of malignant neoplasm of cervix uteri; R05 Cough; R09.89 Other specified symptoms and signs involving the circulatory and respiratory systems

== ENCOUNTER 2019-02-23 19:45 | Inpatient (IN) | payer MEDICARE, BC ==
[~2019-02-23] VITALS: Ht 167.6 cm; Wt 70.5 kg
--- NOTE | ~2019-02-23 | CN ---
PATIENT NAME:ARTHUR JUNG MEDICAL RECORD: [id number] : 61 LOCATION:D.M3 D.1202 ADMIT DATE: 02/24/19 ACCOUNT: [id number] CONSULTING PHYSICIAN: YANA SUAZO MD REFERRING PHYSICIAN: ARACELI QUINTANA MD DATE OF CONSULTATION: 02/24/2019 HISTORY OF PRESENT ILLNESS: Ms. Jung is a 53-year-old female. She is a patient of Dr. Quintana, end-stage renal disease. She is just admitted. She complains of right facial swelling and pain that started yesterday morning. She said it was a little bit more swelling, has gone down some, but it is painful. She has never had this before. She does complain of some dry mouth issues. PAST MEDICAL HISTORY: Reviewed. PHYSICAL EXAMINATION: GENERAL: She is healthy-appearing. She is ambulating. She is alert and oriented. Has normal voice. FACE: Normal, symmetric, maybe a little bit of swelling around the right jaw line. EARS: Canals and TMs are normal. NOSE: No mass, polyps, or drainage. ORAL CAVITY AND OROPHARYNX: No trismus. Floor of the mouth, a little bit of edema of the submandibular duct. Floor of mouth is not really raised up, but the duct looked a little bit swollen. I cannot get anything to come out of either duct. I cannot palpate a stone either. NECK: Palpation of the neck; the parotid glands are normal, but she is tender on the right submandibular gland especially on bimanual palpation. Palpating the whole floor of the duct, I cannot feel a stone, but is a little bit sore. She does not have any teeth on the right side, especially molars. No evidence of any dental infection. IMPRESSION: End-stage renal disease, right submandibular sialadenitis. I cannot rule out a stone based on exam, but I do not see any evidence of one, I think it is just due to dry mouth. I talked to her about that. I talked to a nurse practitioner about starting her on antibiotics with couple doses of IV steroids, some sialogogue, as much hydration is there they can give her. I know she is on dialysis, but I cannot do much there and something for pain, and she should start to get better in about 24-48 hours and then probably take a week to get back to normal. If she does not seem to respond, then she can let me know, and I want to see her in the office in 3-4 weeks after things calm down to make sure there was no stone or mass on exam. TRANSINT:[id number] Voice Confirmation ID: [id number] DOCUMENT ID: [id number] YANA SUAZO MD CC: [id number] DICTATION DATE: 02/24/19 1438 REGULATOR INSPECTOR: 02/24/19 1510 ADM IN [place] [id number] [place] [address]
[2019-02-23 20:49] LABS: BASOPHILS 0.3 % (0-2); EOSINOPHILS 6.3 % (0-7); HEMATOCRIT 35.6 % (36.0-48.0); HEMOGLOBIN 11.4 g/dL (12-16); LYMPHOCYTES 12.7 % (15-50); MCH 31.6 pg (26.0-34.0); MCV 98.6 fL (80.0-100.0); MEAN PLATELET VOLUME 10.7 fL (7.4-10.4); NEUTROPHILS 70.7 % (40-80); PLATELET COUNT 121 10x3/uL (130-400); RBC 3.61 10x6/uL (4.00-5.40); RDW 13.5 % (11.5-14.5); WBC 3.8 10x3/uL (4.8-10.8)
[2019-02-23 20:59] LABS: APTT 31.6 SECONDS (22.8-39.4); INR 1.24 (0.85-1.17); PROTIME 15.1 SECONDS (11.6-15.0)
[2019-02-23 21:05] LABS: ALBUMIN 3.8 g/dL (3.4-5.0); ALKALINE PHOSPHATASE 86 U/L (46-116); ALT (SGPT) 16 U/L (10-68); BILIRUBIN - TOTAL 0.57 mg/dL (0.2-1.3); CALC OSMOLALITY 277 mosm/kg (275-300); CALCIUM 8.1 mg/dL (8.5-10.1); CARBON DIOXIDE 28.7 mmol/L (21.0-32.0); CHLORIDE - SERUM 97 mmol/L (98-107); CREATININE - SERUM 6.3 mg/dL (0.6-1.3); GLUCOSE 105 mg/dL (74-106); POTASSIUM - SERUM 3.8 mmol/L (3.5-5.1); PROTEIN - SERUM 6.6 g/dL (6.4-8.2); SODIUM 137 mmol/L (136-145); UREA NITROGEN 24 mg/dL (7-18); eGFR NON AFRICAN AMERICAN 7 mL/min (90-120)
[2019-02-23 21:17] LABS: CKMB 1.3 U/L (0.0-3.6); CREATINE KINASE 85 UL (21-215); TROPONIN-I 0.044 ng/mL (0.000-0.060)
[2019-02-23 23:30] VITALS: BP 139/79
--- NOTE | 2019-02-23 23:51 | NUR ---
PT TO RADIOLOGY.
[2019-02-24] VITALS (9 sets, daily range): BP systolic 112–145; BP diastolic 40–87; Ht 167.6 cm; Wt 70.5 kg
--- NOTE | 2019-02-24 00:05 | NUR ---
PT RETURNED FROM RADIOLOGY.
--- NOTE | 2019-02-24 00:16 | NUR ---
PT GIVEN WARM COMPRESS FOR NECK.
--- NOTE | 2019-02-24 01:39 | NUR ---
PT TO RADIOLOGY.
--- NOTE | 2019-02-24 01:54 | NUR ---
PT RETURNED FROM RADIOLOGY.
--- NOTE | 2019-02-24 02:46 | NUR ---
PT RESTING EYES CLOSED, RR EVEN AND UNLABORED, VS WNL, FAMILY AT BEDSIDE. WILL CONTINUE TO MONITOR.
--- NOTE | 2019-02-24 04:12 | NUR ---
PT FAMILY MEMBER IN ROOM REQUEST TO KNOW WHY PT HAS NOT RECEIVED A BED ON THE FLOOR YET. CONTACTED BENEFITS COORDINATOR, INFORMED THAT PT'S ROOM IS DIRTY WAITING ON EVS. PT INFORMED.
--- NOTE | 2019-02-24 05:24 | NUR ---
PT RESTING, RR EVEN AND UNLABORED, VS WNL, FAMILY MEMBER AT BEDSIDE. WILL CONTINUE TO MONITOR.
--- NOTE | 2019-02-24 07:00 | NUR ---
RECEIVED PT TO ROOM 1202 VIA WHEELCHAIR, PT DID WELL TRANSFERING FROM WHEELCHAIR TO BED, PT ACCOMPANIED BY SISTER. ORIENTED PT TO ROOM AND CALL LIGHT. PT A/O X4, RESP EVEN AND NONLABORED ON 2L. PT WAS NOT ABLE TO TELL ME WHAT ALL MEDICATIONS SHE TAKES AT HOME. ASKED SISTER IF SHE COULD BRING ME A LIST OF PT'S MEDS LATER WHEN SHE COMES BACK. WILL ASSESS PT AND START PLAN OF CARE.
[2019-02-24] MEDS ORDERED: HYDROCODON-ACE1 EA10 PO (07:35)
--- NOTE | 2019-02-24 08:53 | NUR ---
PT C/O OF PAIN TO RT SIDE OF FACE/NECK WANTS SOMETHING FOR PAIN. CALLED EDDIE MONTIEL AND ASKED IF PT COULD HAVE SOMETHING FOR PAIN. NEW ORDER FOR [place] [id number]
--- NOTE | 2019-02-24 09:40 | NUR ---
NORCO FOR PAIN LEVEL OF 10/10 GIVEN AT THIS TIME. PT DENIES ANY OTHER NEEDS AT THIS TIME. CALL LIGHT IN REACH, NAD NOTED, WILL CONTINUE TO MONITOR.
--- NOTE | 2019-02-24 10:18 | NUR ---
CALLED EDDIE MONTIEL AND INFORMED HER THAT PT'S NECK IS SWOLLEN MORE THAT WHEN SHE CAME IN AND PT STATES THAT SHE IS HAVING A HARD TIME SWALLOWING, FEELS LIKE SOMETHING IS PRESSING DOWN. DR. SUAZO HAS BEEN NOTIFIED. NO NEW ORDERES AT THIS TIME.
--- NOTE | 2019-02-24 14:12 | NUR ---
PT TRANSFERED TO DIALYSIS AT THIS TIME, VIA WHEELCHAIR.
--- NOTE | 2019-02-24 16:42 | NUR ---
PT TRANSFERED BACK FROM DIALYSIS, ALSO GAVE NORCO FOR PAIN LEVEL OF 7/10. PT DENIES ANY OTHER NEEDS AT THIS TIME. CALL LIGHT IN REACH, NAD NOTED.
--- NOTE | 2019-02-24 21:00 | NUR ---
PT SITTING UP IN BED WITHOUT DISTRESS. BREATHING EVEN, UNLABORED. SOME SWELLING TO RIGHT NECK. PT STATES PAIN 5/10. WILL GIVE NORCO ORDERED. PT REQUESTING HOME MEDS BE RESTARTED, SPECIFICALLY HER VALIUM AND COREG. YAMILKA MORGAN IN STORE BANKER, ORDERS RECIEVED. PT BECAME VERY ANXIOUS AND PACING ROOM, GAVE VALIUM ORDERED. IV RIGHT FA SL. LEFT ARM RESERVE FOR FISTULA. DENIES NEEDS AT THIS TIME. CL IN REACH, WILL CONT TO MONITOR
[2019-02-24] MEDS ORDERED: COREG6.25 MG PO (22:59)
[2019-02-24] MEDS ORDERED: XANAX0.25 MG PO (23:00)
[2019-02-25] VITALS: BP 132/66
--- NOTE | 2019-02-25 04:00 | NUR ---
PT REFUSED VITALS
[2019-02-25] MEDS ORDERED: ACETAMINOPHEN500 M1 PO (06:34)
[2019-02-25] MEDS ORDERED: NEURONTIN 300300 MG PO (06:34)
[2019-02-25] MEDS ORDERED: DEXEDRINE10 MG PO (06:35)
[2019-02-25] MEDS ORDERED: ZOFRAN8 MG PO (06:37)
[2019-02-25] MEDS ORDERED: RENVELA800 MG PO (06:37)
[2019-02-25] MEDS ORDERED: LIDOCAINE50 GM TOPICAL (06:38)
[2019-02-25] MEDS ORDERED: MIRALAX17 GM PO (06:38)
[2019-02-25 07:10] LABS: BASOPHILS 0 % (0-2); EOSINOPHILS 0 % (0-7); HEMATOCRIT 32.8 % (36.0-48.0); HEMOGLOBIN 10.6 g/dL (12-16); LYMPHOCYTES 7.1 % (15-50); MCH 31.6 pg (26.0-34.0); MCHC 32.3 g/dL (31.0-37.0); MCV 97.9 fL (80.0-100.0); MEAN PLATELET VOLUME 10.6 fL (7.4-10.4); MONOCYTES 4.4 % (2-11); NEUTROPHILS 88.5 % (40-80); PLATELET COUNT 119 10x3/uL (130-400); RBC 3.35 10x6/uL (4.00-5.40); RDW 13.5 % (11.5-14.5); WBC 4.1 10x3/uL (4.8-10.8)
--- NOTE | 2019-02-25 07:15 | NUR ---
INITIAL ROUNDING ON THE PATIENT, SHE IS AWAKE AND SITTING ON THE SIDE OF THE BED, SHE DENIES ANY NEEDS AT THIS TIME. O2 VIA NC IN PLACE, 2LPM, CAREGIVERS INTRODUCED.
[2019-02-25 08:06] LABS: CALCIUM 7.9 mg/dL (8.5-10.1); CARBON DIOXIDE 23.3 mmol/L (21.0-32.0); CREATININE - SERUM 6.8 mg/dL (0.6-1.3); PHOSPHOROUS 4.8 mg/dL (2.5-4.9); POTASSIUM - SERUM 4.3 mmol/L (3.5-5.1)
[2019-02-25 08:18] VITALS: BP 134/71
--- NOTE | 2019-02-25 13:15 | NUR ---
DIALYSIS COORDINATOR: [facility] MWF 1ST SHIFT. MICHELLE SLAUGHTER.
--- NOTE | 2019-02-25 19:40 | NUR ---
PT SITTING UP IN BEDSIDE CHAIR. ALERT AND ORIENTED, NO SIGNS OF DISTRESS. BREATHINGE EVEN, UNLABORED. VSS. SMALL LUMP TO RIGHT SIDE OF NECK. IV RIGHT FA SL, FLUSHES EASILY. DRESSING CDI. SMALL BURN TO FA THAT PT STATES SHE BURNED ON HER GRILL AT HOME, COVERED W/ BANDAID. FISTULA TO LEFT ARM, PT STATES IS SORE FROM DIALYSIS TODAY. STATES PAIN 6/10. WILL GIVE NORCO ORDERED. PT FEELING ANXIOUS, GAVE VALIUM ORDERED. DENIES OTHER NEEDS AT THIS TIME. CL IN REACH, WILL CONT TO MONITOR
[2019-02-25 20:00] VITALS: BP 157/86
--- NOTE | 2019-02-25 20:19 | NUR ---
PT REFUSES MIDNIGHT VITALS STATING SHE DOES NOT WANT TO BE WOKE UP
--- NOTE | 2019-02-25 21:00 | NUR ---
PT STATES SHE HAS BEEN ITCHY SINCE SHE GOT BACK FROM DIALYSIS THIS AFTERNOON AND RECIEVED FIRST DOSE OF ANCEF. NO HIVES OR FEVER. PT FACE HAS BEEN SLIGHTLY FLUSHED. CALLED [facility], ORDERS FOR BENADRYL 50MG PO Q6PRN. GAVE ORDERED. WILL CONT TO MONITOR
--- NOTE | 2019-02-26 04:00 | NUR ---
REFUSES 4AM VITALS BECAUSE SHE DOES NOT WANT TO BE WOKE UP
--- NOTE | 2019-02-26 07:00 | NUR ---
INITIAL ROUNDING, THE PATIENT IS UP WALKING IN THE HALLS, DENIES PAIN BUT REPORTING SOME ANXIETY
[2019-02-26 07:30] VITALS: BP 144/84
--- NOTE | 2019-02-26 07:48 | NUR ---
PATIENT INFORMED THIS NURSE SHE WAS TAKING A WALK AROUND AND GOING TO STOP AT THE KITCHEN TO GET A CUP OF CRUSHED ICE
[2019-02-26] MEDS ORDERED: STERAPRED DS 1010 MG PO (08:13)
--- NOTE | 2019-02-26 11:58 | MORECARE ---
CASE MANAGEMENT DISCHARGE SUMMARY PATIENT: ARTHUR JUNG UNIT: [id number] ADM DATE: 02/24/19 AGE: 53 : 61 SEX: F ROOM/BED: D.1202 AUTHOR: LIDA LEPE PHYSICIAN: REFERRING PHYSICIAN: ARACELI QUINTANA MD DATE OF SERVICE: 02/26/19 Discharge Plan Patient Name: ARTHUR JUNG [facility] [facility] 1965 Planned Disposition: Home Anticipated Discharge Date: 02/26/19 Discharge Date: Expected LOS: 2 Initial Reviewer: [email or web address] Initial Review Date: 02/24/2019 Generated: 02/26/19 12:57 pm Patient Name: ARTHUR JUNG Page 94632 at 1158 All edits/amendments must be made on the electronic document DICTATION DATE: 02/26/197 OFFICE SERVICES SPECIALIST: SARA 02/26/19 1157 RPT#: [id number] DC DATE: STATUS: ADM IN [facility] [address] [place] [address] END OF REPORT
--- NOTE | 2019-02-26 12:05 | MORECARE ---
CASE MANAGEMENT DISCHARGE SUMMARY PATIENT: ARTHUR JUNG UNIT: [id number] ADM DATE: 02/24/19 AGE: 53 : 61 SEX: F ROOM/BED: D.1202 AUTHOR: LIDA LEPE PHYSICIAN: REFERRING PHYSICIAN: ARACELI QUINTANA MD DATE OF SERVICE: 02/26/19 Discharge Plan Patient Name: ARTHUR JUNG [facility] [facility] 1965 Planned Disposition: Home Anticipated Discharge Date: 02/26/19 Discharge Date: Expected LOS: 2 Initial Reviewer: [email or web address] Initial Review Date: 02/24/2019 Generated: 02/26/19 1:05 pm Last DP export: 02/26/19 10:57 am Patient Name: ARTHUR JUNG Page 80511 at 1205 All edits/amendments must be made on the electronic document DICTATION DATE: 02/26/19 1205 RN PERITONEAL DIALYSIS: SARA 02/26/19 1205 RPT#: [id number] DC DATE: STATUS: ADM IN [facility] [address] [place] [address] END OF REPORT
--- NOTE | 2019-02-26 12:24 | MORECARE ---
CASE MANAGEMENT DISCHARGE SUMMARY PATIENT: ARTHUR JUNG UNIT: [id number] ADM DATE: 02/24/19 AGE: 53 : 61 SEX: F ROOM/BED: D.1202 AUTHOR: LIDA LEPE PHYSICIAN: REFERRING PHYSICIAN: ARACELI QUINTANA MD DATE OF SERVICE: 02/26/19 Discharge Plan Patient Name: ARTHUR JUNG [facility] [facility] 1965 Planned Disposition: Home Anticipated Discharge Date: 02/26/19 Discharge Date: Expected LOS: 2 Initial Reviewer: [email or web address] Initial Review Date: 02/24/2019 Generated: 02/26/19 1:23 pm DCPIA - Discharge Planning Initial Assessment Updated by [email or web address]: Melody Santos on 02/26/19 12:19 pm * Is the patient Alert and Oriented? Yes * How many steps to enter\exit or inside your home? 8 in home * PCP MARIANO * [facility] * Preadmission Environment Home Alone * ADLs Independent * Equipment Cane Crutch Rolling Walker Wheelchair * List name and contact numbers for known caregivers / representatives who currently or will assist patient after discharge: Angeline Mancini [phone] * Verbal permission to speak to the caregivers and representatives has been obtained from the patient. Yes * Community resources currently utilized None * Additional services required to return to the preadmission environment? No * Can the patient safely return to the preadmission environment? Yes * Has this patient been hospitalized within the prior 30 days at any hospital? No Last DP export: 02/26/19 11:05 am Patient Name: ARTHUR JUNG Page 98358 at 1224 All edits/amendments must be made on the electronic document DICTATION DATE: 02/26/19 1223 ERISA ATTORNEY: SARA 02/26/193 RPT#: [id number] DC DATE: STATUS: ADM IN [facility] [address] [place] [address] END OF REPORT
--- NOTE | 2019-02-26 12:31 | MORECARE ---
CASE MANAGEMENT DISCHARGE SUMMARY PATIENT: ARTHUR JUNG UNIT: [id number] ADM DATE: 02/24/19 AGE: 53 : 61 SEX: F ROOM/BED: D.1202 AUTHOR: SHERLEY,DOC PHYSICIAN: REFERRING PHYSICIAN: ARACELI QUINTANA MD DATE OF SERVICE: 02/26/19 Discharge Plan Patient Name: ARTHUR JUNG [facility]:[place] : 1965 Planned Disposition: Home Anticipated Discharge Date: 02/26/19 Discharge Date: Expected LOS: 2 Initial Reviewer: [email or web address] Initial Review Date: 02/24/2019 Generated: 02/26/19 1:31 pm Comments DCP- Discharge Planning Updated by [email or web address]: Melody Santos on 02/26/19 11:[address] After obtaining verbal consent, CM met with patient and sister, Angeline, about discharge planning / needs. Patient states her plan is to discharge to home. Patient states home environment is safe. States she may need oxygen at home. States she had oxygen in her home in [place], but when she moved she left it. CM called and spoke with Loretta with Nephrology and obtained order for walk test. CM notified Gregorio with RT about walk test order. Denies any other discharge planning / needs. CM explained and served DC IMM. Sister Angeline will transport patient home. CM will continue to follow and assist as needed with discharge planning / needs. DCPIA - Discharge Planning Initial Assessment Updated by [email or web address]: Melody Santos on 02/26/19 12:19 pm * Is the patient Alert and Oriented? Yes * How many steps to enter\exit or inside your home? 8 in home * PCP MARIANO * [facility] * Preadmission Environment Home Alone * ADLs Independent * Equipment Cane Crutch Rolling Walker Wheelchair * List name and contact numbers for known caregivers / representatives who currently or will assist patient after discharge: Angeline Mancini [phone] * Verbal permission to speak to the caregivers and representatives has been obtained from the patient. Yes * Community resources currently utilized None * Additional services required to return to the preadmission environment? No * Can the patient safely return to the preadmission environment? Yes * Has this patient been hospitalized within the prior 30 days at any hospital? No Last DP export: 02/26/19 11:24 am Patient Name: ARTHUR JUNG Page 65450 at 1231 All edits/amendments must be made on the electronic document DICTATION DATE: 02/26/19 123 CLAY PUDDLER: SARA 02/26/19 1230 RPT#: [id number] DC DATE: STATUS: ADM IN [facility] [address] [place] [address] END OF REPORT
--- NOTE | 2019-02-26 12:34 | NUR ---
1400 ANCEF WAS GIVEN IN DIALYSIS, IV REMOVED WITH CATH TIP INTACT. PATIENT WAITING TO BE DISCHARGED
--- NOTE | 2019-02-26 14:26 | MORECARE ---
CASE MANAGEMENT DISCHARGE SUMMARY PATIENT: ARTHUR JUNG UNIT: [id number] ADM DATE: 02/24/19 AGE: 53 : 61 SEX: F ROOM/BED: D.1202 AUTHOR: SHERLEY,DOC PHYSICIAN: REFERRING PHYSICIAN: ARACELI QUINTANA MD DATE OF SERVICE: 02/26/19 Discharge Plan Patient Name: ARTHUR JUNG Facility: [facility]:[place] : 1965 Planned Disposition: Home Anticipated Discharge Date: 02/26/19 Discharge Date: 02/26/2019 Expected LOS: 2 Initial Reviewer: [email or web address] Initial Review Date: 02/24/2019 Generated: 02/26/19 3:26 pm Comments DCP- Discharge Planning Updated by [email or web address]: Melody Santos on 02/26/19 11:[address] After obtaining verbal consent, CM met with patient and sister, Angeline, about discharge planning / needs. Patient states her plan is to discharge to home. Patient states home environment is safe. States she may need oxygen at home. States she had oxygen in her home in [place], but when she moved she left it. CM called and spoke with Loretta with Nephrology and obtained order for walk test. CM notified Gregorio with RT about walk test order. Denies any other discharge planning / needs. CM explained and served DC IMM. Sister Angeline will transport patient home. CM will continue to follow and assist as needed with discharge planning / needs. DCPIA - Discharge Planning Initial Assessment Updated by [email or web address]: Melody Santos on 02/26/19 12:19 pm * Is the patient Alert and Oriented? Yes * How many steps to enter\exit or inside your home? 8 in home * PCP MARIANO * [facility] * Preadmission Environment Home Alone * ADLs Independent * Equipment Cane Crutch Rolling Walker Wheelchair * List name and contact numbers for known caregivers / representatives who currently or will assist patient after discharge: Angeline Mancini [phone] * Verbal permission to speak to the caregivers and representatives has been obtained from the patient. Yes * Community resources currently utilized None * Additional services required to return to the preadmission environment? No * Can the patient safely return to the preadmission environment? Yes * Has this patient been hospitalized within the prior 30 days at any hospital? No External Providers External Provider: [facility] Patient-[place] Next Contact Date: Service Request Date: Service Type: Resolution: Reviewer: Comments: Last DP export: 02/26/19 11:31 am Patient Name: ARTHUR JUNG Page 04561 at 1426 All edits/amendments must be made on the electronic document DICTATION DATE: 02/26/191425 SCHOOL SUPERVISOR: SARA 02/26/191425 RPT#: [id number] DC DATE:02/26/19 STATUS: DIS IN [facility] [address] [place] [address] END OF REPORT
--- NOTE | 2019-02-26 15:36 | MORECARE ---
CASE MANAGEMENT DISCHARGE SUMMARY PATIENT: ARTHUR JUNG UNIT: [id number] ADM DATE: 02/24/19 AGE: 53 : 61 SEX: F ROOM/BED: D.1202 AUTHOR: SHERLEY,DOC PHYSICIAN: REFERRING PHYSICIAN: ARACELI QUINTANA MD DATE OF SERVICE: 02/26/19 Discharge Plan Patient Name: ARTHUR JUNG Facility[facility]:[place] : 1965 Planned Disposition: Home Anticipated Discharge Date: 02/26/19 Discharge Date: 02/26/2019 Expected LOS: 2 Initial Reviewer: [email or web address] Initial Review Date: 02/24/2019 Generated: 02/26/19 4:36 pm Comments DCP- Discharge Planning Updated by [email or web address]: Melody Santos on 02/26/19 11:[address] After obtaining verbal consent, CM met with patient and sister, Angeline, about discharge planning / needs. Patient states her plan is to discharge to home. Patient states home environment is safe. States she may need oxygen at home. States she had oxygen in her home in [place], but when she moved she left it. CM called and spoke with Loretta with Nephrology and obtained order for walk test. CM notified Gregorio with RT about walk test order. Denies any other discharge planning / needs. CM explained and served DC IMM. Sister Angeline will transport patient home. CM will continue to follow and assist as needed with discharge planning / needs. DCPIA - Discharge Planning Initial Assessment Updated by [email or web address]: Melody Santos on 02/26/19 12:19 pm * Is the patient Alert and Oriented? Yes * How many steps to enter\exit or inside your home? 8 in home * PCP MARIANO * [facility] * Preadmission Environment Home Alone * ADLs Independent * Equipment Cane Crutch Rolling Walker Wheelchair * List name and contact numbers for known caregivers / representatives who currently or will assist patient after discharge: Angeline Mancini [phone] * Verbal permission to speak to the caregivers and representatives has been obtained from the patient. Yes * Community resources currently utilized None * Additional services required to return to the preadmission environment? No * Can the patient safely return to the preadmission environment? Yes * Has this patient been hospitalized within the prior 30 days at any hospital? No External Providers External Provider: OTHER-OTHER Next Contact Date: Service Request Date: Service Type: Resolution: Reviewer: Comments: Last DP export: 02/26/19 1:26 pm Patient Name: ARTHUR JUNG Page 90746 at 1536 All edits/amendments must be made on the electronic document DICTATION DATE: 02/26/191534 INTAKE SPECIALIST: SARA 02/26/191534 RPT#: [id number] DC DATE:02/26/19 STATUS: DIS IN [facility] [address] [place] [address] END OF REPORT
--- NOTE | 2019-02-26 17:22 | MORECARE ---
CASE MANAGEMENT DISCHARGE SUMMARY PATIENT: ARTHUR JUNG UNIT: [id number] ADM DATE: 02/24/19 AGE: 53 : 61 SEX: F ROOM/BED: D.1202 AUTHOR: SHERLEY,DOC PHYSICIAN: REFERRING PHYSICIAN: ARACELI QUINTANA MD DATE OF SERVICE: 02/26/19 Discharge Plan Patient Name: ARTHUR JUNG Facility: [facility]:[place] : 1965 Planned Disposition: Home Anticipated Discharge Date: 02/26/19 Discharge Date: 02/26/2019 Expected LOS: 2 Initial Reviewer: [email or web address] Initial Review Date: 02/24/2019 Generated: 02/26/19 6:21 pm Comments DCP- Discharge Planning Updated by [email or web address]: Melody Santos on 02/26/19 4:[address] Late Entry 13:00 CM notified by RT that patient will need home O2. Patient very anxious to leave hospital now. Does not want to wait for O2 to be delivered. RT, Gregorio, stated patient would be fine to go home without oxygen being delivered to hospital. Patient signed HARPAL for [facility]. CM obtained order for home O2 from Loretta Jacobsen. CM called [facility] about referral. Faxed records as requested. DME will deliver O2 to patient's home. Patient verbalized understanding and satisfaction with discharge plans. DCP- Discharge Planning Updated by [email or web address]: Melody Santos on 02/26/19 11:[address] After obtaining verbal consent, SHERMAN met with patient and sister, Angeline, about discharge planning / needs. Patient states her plan is to discharge to home. Patient states home environment is safe. States she may need oxygen at home. States she had oxygen in her home in [place], but when she moved she left it. CM called and spoke with Loretta with Nephrology and obtained order for walk test. CM notified Gregorio with RT about walk test order. Denies any other discharge planning / needs. CM explained and served DC IMM. Sister Angeline will transport patient home. CM will continue to follow and assist as needed with discharge planning / needs. DCPIA - Discharge Planning Initial Assessment Updated by [email or web address]: Melody Santos on 02/26/19 12:19 pm * Is the patient Alert and Oriented? Yes * How many steps to enter\exit or inside your home? 8 in home * PCP MARIANO * [facility] * Preadmission Environment Home Alone * ADLs Independent * Equipment Cane Crutch Rolling Walker Wheelchair * List name and contact numbers for known caregivers / representatives who currently or will assist patient after discharge: Angeline Mancini [phone] * Verbal permission to speak to the caregivers and representatives has been obtained from the patient. Yes * Community resources currently utilized None * Additional services required to return to the preadmission environment? No * Can the patient safely return to the preadmission environment? Yes * Has this patient been hospitalized within the prior 30 days at any hospital? No Coverage Notice Reviewer: GURDEEP Santos Notice Issued Date-Time: 02/26/2019 11:40 Notice Type: IM Discharge Notice Notice Delivered To: Patient Relationship to Patient: Self Destination Specialist Name: Delivery Method: HAND - Hand Delivered Ely Days: Prior Verbal Notification: Recipient Understood Notice: Yes Recipient Signature: Yes Med Rec Note Co-signed by Attending: Coverage Notice Comment: Reviewer: GUREDEP Santos Notice Issued Date-Time: 02/26/2019 12:35 Notice Type: Patient Choice Letter Notice Delivered To: Patient Relationship to Patient: Self Destination Specialist Name: Delivery Method: HAND - Hand Delivered Ely Days: Prior Verbal Notification: Recipient Understood Notice: Yes Recipient Signature: Yes Med Rec Note Co-signed by Attending: Coverage Notice Comment: [facility] Last DP export: 02/26/19 2:36 pm Patient Name: ATRHUR JUNG Page 53621 at 1722 All edits/amendments must be made on the electronic document DICTATION DATE: 02/26/191720 MECHANICAL SYSTEMS DESIGNER: SARA 02/26/191720 RPT#: [id number] DC DATE:02/26/19 STATUS: DIS IN [facility] [address] [place] [address] END OF REPORT
--- NOTE | 2019-02-26 17:37 | MORECARE ---
CASE MANAGEMENT DISCHARGE SUMMARY PATIENT: ARTHUR JUNG UNIT: [id number] ADM DATE: 02/24/19 AGE: 53 : 61 SEX: F ROOM/BED: D.1202 AUTHOR: SHERLEY,DOC PHYSICIAN: REFERRING PHYSICIAN: ARACELI QUINTANA MD DATE OF SERVICE: 02/26/19 Discharge Plan Patient Name: ARTHUR JUNG Facility: [facility]:[place] : 1965 Planned Disposition: Home Anticipated Discharge Date: 02/26/19 Discharge Date: 02/26/2019 Expected LOS: 2 Initial Reviewer: [email or web address] Initial Review Date: 02/24/2019 Generated: 02/26/19 6:36 pm Comments DCP- Discharge Planning Updated by [email or web address]: Melody Santos on 02/26/19 4:[address] Late Entry 13:00 CM notified by RT that patient will need home O2. Patient very anxious to leave hospital now. Does not want to wait for O2 to be delivered. RT, Gregorio, stated patient would be fine to go home without oxygen being delivered to hospital. Patient signed HARPAL for [facility]. CM obtained order for home O2 from Loretta Jacobsen. CM called [facility] about referral. Faxed records as requested. DME will deliver O2 to patient's home. Patient verbalized understanding and satisfaction with discharge plans. CM notified Xiomara Dixon with [facility] of planned discharge. Xiomara states everything is ready for patient to return to dialysis M/W/F as previously scheduled. DCP- Discharge Planning Updated by [email or web address]: Melody Santos on 02/26/19 11:[address] After obtaining verbal consent, CM met with patient and sister, Angeline, about discharge planning / needs. Patient states her plan is to discharge to home. Patient states home environment is safe. States she may need oxygen at home. States she had oxygen in her home in [place], but when she moved she left it. CM called and spoke with Loretta with Nephrology and obtained order for walk test. CM notified Gregorio with RT about walk test order. Denies any other discharge planning / needs. CM explained and served DC IMM. Sister Angeline will transport patient home. CM will continue to follow and assist as needed with discharge planning / needs. DCPIA - Discharge Planning Initial Assessment Updated by [email or web address]: Melody Santos on 02/26/19 12:19 pm * Is the patient Alert and Oriented? Yes * How many steps to enter\exit or inside your home? 8 in home * PCP MARIANO * [facility] * Preadmission Environment Home Alone * ADLs Independent * Equipment Cane Crutch Rolling Walker Wheelchair * List name and contact numbers for known caregivers / representatives who currently or will assist patient after discharge: Angeline Mancini [phone] * Verbal permission to speak to the caregivers and representatives has been obtained from the patient. Yes * Community resources currently utilized None * Additional services required to return to the preadmission environment? No * Can the patient safely return to the preadmission environment? Yes * Has this patient been hospitalized within the prior 30 days at any hospital? No Coverage Notice Reviewer: GURDEEP Santos Notice Issued Date-Time: 02/26/2019 11:40 Notice Type: IM Discharge Notice Notice Delivered To: Patient Relationship to Patient: Self Associate Entertainment Editor Name: Delivery Method: HAND - Hand Delivered Ely Days: Prior Verbal Notification: Recipient Understood Notice: Yes Recipient Signature: Yes Med Rec Note Co-signed by Attending: Coverage Notice Comment: Reviewer: [email or web address] Buck Santos Notice Issued Date-Time: 02/26/2019 12:35 Notice Type: Patient Choice Letter Notice Delivered To: Patient Relationship to Patient: Self Associate Entertainment Editor Name: Delivery Method: HAND - Hand Delivered Ely Days: Prior Verbal Notification: Recipient Understood Notice: Yes Recipient Signature: Yes Med Rec Note Co-signed by Attending: Coverage Notice Comment: [facility] Last DP export: 02/26/19 4:22 pm Patient Name: ARTHUR JUNG Page 60209 at 1737 All edits/amendments must be made on the electronic document DICTATION DATE: 02/26/191735 FINANCIAL AID ADVISOR: SARA 02/26/191735 RPT#: [id number] DC DATE:02/26/19 STATUS: DIS IN [facility] [address] [place] [address] END OF REPORT
== END 2019-02-26 13:13 | disposition home or self-care (01) | DRG 154 ==
LOC: D.ER 19:45 → D.EDHOLD 02-24 03:17 → D.M3 02-24 03:17
PROVIDERS: Family Medicine; ADMIT Internal Medicine Nephrology; ATTEND Internal Medicine Nephrology
DX: K11.20 Sialoadenitis, unspecified (principal); N18.6 End stage renal disease; I13.2 Hypertensive heart and chronic kidney disease with heart failure and with stage 5 chronic kidney disease, or end stage renal disease; I50.9 Heart failure, unspecified; Z87.891 Personal history of nicotine dependence; K21.9 Gastro-esophageal reflux disease without esophagitis

== ENCOUNTER 2019-03-03 04:18 | Inpatient (IN) | payer MEDICARE, BC ==
[~2019-03-03] VITALS: Ht 167.6 cm; Wt 59.0 kg
--- NOTE | ~2019-03-03 | EC ---
PATIENT:ARTHUR JUNG DATE OF SERVICE: 03/03/19 SEX: F MEDICAL RECORD: [id number] DATE OF : 61 LOCATION:D.M2 D.212 AGE OF PATIENT: 53 ADMISSION DATE: 03/03/19 REFERRING PHYSICIAN: INTERPRETING PHYSICIAN: RUBY MONROE MD ECHOCARDIOGRAM REPORT ECHO CHARGES 4 ECHO COMPLETE Date: 03/05/19 CLINICAL DIAGNOSIS: TR ECHOCARDIOGRAPHIC MEASUREMENTS (adult normal given) AC root (d.<3.7cm) 3.0 cm LV Septum d (<1.2 cm> 1.4 cm Valve Excursion 1.8 cm LV Septum (systole) 1.8 cm Left Atria (s.<4.0cm> 4.8 cm LVPW d(<1.2cm) 1.2 cm RV (d.<2.3cm) 3.8 cm LVPW (sytole) 1.8 cm LV diastole(<5.6CM) 6.1 cm MV E-F(>70mm/sec) cm LV systole 4.3 cm LVOT Diameter 2.0 cm MV exc.(>10mm) cm Est.ejection fraction (50-75%) % DOPPLER: LVIT cm/sec A 134 cm/sec E 203 cm/sec LA cm/sec RVSP 55.0 mmHg LVOT 131 cm/sec AOP1/2T m/s Asc. Ao 233 cm/sec RVOT 95.0 cm/sec RA cm/sec PA 135 cm/sec AV Gradient Peak 22.0 mmHg AV Mean 11.0 mmHg AV Area 1.9 cm MV Gradient Peak 20.0 mmHg MV Mean 8.3 mmHg MV Area cm COMMENTS: Storage Solutions Architect: 1 LASHAWN BIRMINGHAM Guest Services Manager: 1 Dr. Monroe TAPE# PACS Pericardial Effusion Y DATE OF SERVICE: Echocardiogram FINDINGS: 1. Left ventricular chamber size is mildly dilated. Left ventricular systolic function is normal. Overall ejection fraction 50-55%. 2. Left atrium is enlarged at 4.8 cm. Right atrium and right ventricular chamber sizes are as well mildly dilated. 3. Valvular structures have normal structure and motion. ECHOCARDIOGRAM REPORT [id number] ARTHUR JUNG 4. Doppler interrogation reveals moderate mitral regurgitation, moderate tricuspid regurgitation, no other valvular insufficiency or stenosis. Pulmonary systolic pressure is estimated at 55 mmHg. 5. No evidence of pericardial effusion or left ventricular thrombus. TRANSINT:[id number] Voice Confirmation ID: [id number] DOCUMENT ID: [id number] RUBY MONROE MD CC: [id number] DICTATION DATE: 03/05/191653 ASSISTANT MEDIA BUYER: 03/05/19 2319 DIS IN 03/05/19 [facility] [address] [id number]
[~2019-03-03 04:18] MED LIST changes: +ACETAMINOPHEN500 M1 PO; +HYDROCODON-ACE1 EA10 PO; +LIDOCAINE50 GM TOPICAL; +NEURONTIN 300300 MG PO; +STERAPRED DS 1010 MG PO; +ZOFRAN8 MG PO
[2019-03-03 05:28] LABS: INR 1.25 (0.85-1.17); PROTIME 15.2 SECONDS (11.6-15.0)
[2019-03-03 05:29] LABS: APTT 35.6 SECONDS (22.8-39.4)
[2019-03-03 05:30] LABS: BASOPHILS 0.1 % (0-2); D-DIMER-QUANTITATIVE 0.72 ug/mLFEU (0.20-0.54); EOSINOPHILS 4.4 % (0-7); HEMATOCRIT 31.1 % (36.0-48.0); HEMOGLOBIN 9.9 g/dL (12-16); IMMATURE GRANULOCYTES 0.4 % (0-5); LYMPHOCYTES 9.6 % (15-50); MCH 31.2 pg (26.0-34.0); MCHC 31.8 g/dL (31.0-37.0); MCV 98.1 fL (80.0-100.0); MEAN PLATELET VOLUME 10.3 fL (7.4-10.4); MONOCYTES 11.9 % (2-11); NEUTROPHILS 73.6 % (40-80); RBC 3.17 10x6/uL (4.00-5.40); RDW 13.3 % (11.5-14.5); WBC 7.9 10x3/uL (4.8-10.8)
[2019-03-03 05:53] LABS: ALBUMIN 3.3 g/dL (3.4-5.0); ALKALINE PHOSPHATASE 77 U/L (46-116); ALT (SGPT) 10 U/L (10-68); BILIRUBIN - TOTAL 0.63 mg/dL (0.2-1.3); CALCIUM 8.2 mg/dL (8.5-10.1); CARBON DIOXIDE 26.5 mmol/L (21.0-32.0); CHLORIDE - SERUM 99 mmol/L (98-107); CREATININE - SERUM 6.6 mg/dL (0.6-1.3); POTASSIUM - SERUM 4.1 mmol/L (3.5-5.1); PROTEIN - SERUM 6.4 g/dL (6.4-8.2); SODIUM 136 mmol/L (136-145); UREA NITROGEN 43 mg/dL (7-18); eGFR NON AFRICAN AMERICAN 7 mL/min (90-120)
[2019-03-03 05:54] LABS: PLATELET COUNT 173 10x3/uL (130-400)
[2019-03-03 05:58] LABS: C-REACTIVE PROTEIN 2.7 mg/dL (0.0-0.9); CKMB 1.3 U/L (0.0-3.6); CREATINE KINASE 82 UL (21-215); TROPONIN-I 0.041 ng/mL (0.000-0.060)
--- NOTE | 2019-03-03 05:58 | NUR ---
NOTIFIED DR. RODARTE PT REQUEST FOR PAIN MEDICATION.
[2019-03-03 06:08] LABS: CALC OSMOLALITY 283 mosm/kg (275-300); GLUCOSE 115 mg/dL (74-106)
--- NOTE | 2019-03-03 07:05 | NUR ---
report give to rickey galvez
[2019-03-03 07:14] LABS: PRO BNP 114555 pg/mL (0-125)
[2019-03-03 07:42] LABS: ERYTHROCYTE SEDIMENTATION RATE 23 mm/hr (0-30)
[2019-03-03 08:08] LABS: COMPLEMENT C3 55 mg/dL (90-207)
[2019-03-03 08:35] VITALS: BP 131/76
[2019-03-03 08:43] LABS: COMPLEMENT C4 < 5.0 mg/dL (17.4-52.2)
--- NOTE | 2019-03-03 11:18 | NUR ---
PT GONE TO DIALYSIS.
--- NOTE | 2019-03-03 13:25 | NUR ---
REPORT GIVEN TO BIRGIT PT GOING TO 2125 FROM DIALYSIS.
--- NOTE | 2019-03-03 14:20 | NUR ---
RECEIVED CALL FROM DIALYSIS THAT PT WAS COMPLAINING OF SEVERE PAIN. TOOK ADMINISTERED DOSE OF DILUADID TO PT IN DIALYSIS. WILL CTM.
--- NOTE | 2019-03-03 15:49 | NUR ---
RECEIVED PT ON FLOOR. PT IS AAO AND UP AD BRAVO. RR EVEN AND UNLABORED ON RA. VSS AND WNL. PT DENIES ANY NEEDS AT THIS TIME. WILL CTM. R.FOR PIV IS SALINE LOCKED.
[2019-03-03 15:52] VITALS: BP 143/75
[2019-03-03 16:03] VITALS: BP 143/75
--- NOTE | 2019-03-03 18:45 | NUR ---
ADMINISTERED ORDERED DOSE OF BUPRENEX. 0.2MG IV VIA R.FOR PIV. MIGUEL GLITCHED AND INCORRECT AMOUNT WAS ENTERED. NOTIFIED PHARMACY. MIGUEL STATED I ADMINISTERED 0MG WHEN IN FACT 0.2MG WAS ADMINISTERED. WILL CTM. UPON ADMINISTRATION OF MEDICATION PT SCREAMED OUT "THEY DO THIS EVERY SINGLE TIME CALL NOW AND GET HIM IN HERE."
--- NOTE | 2019-03-03 19:47 | NUR ---
EVENING ROUNDS COMPLETED. REPORT RECEIVED. PT SITTING UP IN BED SCREAMING IN PAIN, PT HAS BEEN INFORMED OF AVAILABLE ANALGESICS. PT INSISTED THAT DR ORNELAS BE CALLED. STATING I WANT TO SEE THE DOCTOR. I THEN INFORMED PT THAT THE ORDERED HYDROMORPHONE WAS DISCONTINUED BY DR ORNELAS. PT THEN STATES IF I CANNOT RECEIVE THE DILAUDID THEN I WANT TO BE DISCHARGED. I CALLED ALEJANDRO DAMON AND INFORMED HER THE PT IS ASKING TO BE DISCHARGED. ALEJANDRO DAMON STATED THE PT WILL HAVE TO LEAVE AGAINST MEDICAL ADVICE. THE PT THEN STATED SHE WANTED TO SEE THE DOCTOR AND WOULD STAY UNTIL THE MORNING. I THEN INFORMED PT I WOULD ADMINISTER THE ORDERED ANALGESICS AT THE PT'S REQUEST AND EDUCATED HER ON THE MEANING OF PRN ORDERS BY A DOCTOR.
[2019-03-03 21:53] VITALS: BP 137/68
--- NOTE | 2019-03-03 23:29 | NUR ---
PT SITTING UP IN BED WITH EYES CLOSED, RR EVEN AND UNLABORED. BED IN LOW POSITION. ADMINISTERED ORDERED DOSE OF DILAUDID. PT STATES PAIN OF AN 8 ON A SCALE OF 0-10. PT STATES PAIN IS BILATERALLY IN LOWER EXTREMITIES. PT DENIES FURTHER NEEDS AT THIS TIME. CALL LIGHT IN REACH. WILL CTM.
[2019-03-04] VITALS: BP 126/72
--- NOTE | 2019-03-04 02:24 | NUR ---
ADMINISTERED ORDERED ANALGESIC FOR COMPLAINTS OF PAIN IN LEGS. PT STATES PAIN OF A 7 ON A SCALE OF 0-10. CALL LIGHT IN REACH. WILL CTM.
--- NOTE | 2019-03-04 03:00 | NUR ---
I have reviewed this patient and I concur with the Shift Assessment completed by the Licensed Practical Nurse today this shift.
[2019-03-04 05:43] LABS: BASOPHILS 0.4 % (0-2); EOSINOPHILS 6.4 % (0-7); HEMATOCRIT 34.3 % (36.0-48.0); HEMOGLOBIN 10.9 g/dL (12-16); IMMATURE GRANULOCYTES 0.4 % (0-5); LYMPHOCYTES 20.6 % (15-50); MCH 31.5 pg (26.0-34.0); MCHC 31.8 g/dL (31.0-37.0); MCV 99.1 fL (80.0-100.0); MEAN PLATELET VOLUME 10.2 fL (7.4-10.4); MONOCYTES 13.5 % (2-11); NEUTROPHILS 58.7 % (40-80); PLATELET COUNT 152 10x3/uL (130-400); RBC 3.46 10x6/uL (4.00-5.40); RDW 13.5 % (11.5-14.5)
[2019-03-04 05:47] VITALS: BP 147/86
[2019-03-04 05:51] LABS: ANION GAP 12.4 mmol/L (8-16); CARBON DIOXIDE 32.2 mmol/L (21.0-32.0); POTASSIUM - SERUM 3.6 mmol/L (3.5-5.1); WBC 5.2 10x3/uL (4.8-10.8)
[2019-03-04 05:53] LABS: CREATININE - SERUM 4.8 mg/dL (0.6-1.3)
--- NOTE | 2019-03-04 07:27 | NUR ---
REPORT RECEIVED WITH PATIENT BEING VERY SLEEPY AND FINALLY AROUSING TO TAPPING HER LEGS. FEMALE MEMBER AT BEDSIDE. RIGHT FA PIV SEEN WITH SALINE LOCK, ORANGE SWAB CAP IN USE. ON ROOM AIR. RESEV. LEFT ARM WITH AVF.
[2019-03-04 10:02] VITALS: BP 132/66
--- NOTE | 2019-03-04 10:32 | NUR ---
TO RADIOLOGY VIA WHEELCHAIR.
--- NOTE | 2019-03-04 10:47 | NUR ---
RETURNS FROM RADIOLOGY.
--- NOTE | 2019-03-04 13:22 | NUR ---
AROUSES FOR VITAL SIGNS, PATIENT SLEEPS DEEPLY WITH PAIN MEDS.
[2019-03-04 14:07] VITALS: BMI 20.9
[2019-03-04 15:34] VITALS: BP 147/84
--- NOTE | 2019-03-04 16:06 | NUR ---
PATIENT DOES NOT WANT TO WEAR THE BILATERAL SCD'S HER LEGS HURT (CELLULITIS). UP AMBULATORY IN RESTROOM.
[2019-03-04 16:11] LABS: ANA REFLEX - DIRECT Negative (Negative)
--- NOTE | 2019-03-04 16:28 | NUR ---
COMPLAINTS OF PAIN TO FEET AND LEGS, 07/03 . DILUADID GIVEN SLOW IVP PAST MIXING WITH 5 CC NS. ICE PACKS OFFERED. ENCOURAGED PATIENT TO ONLY ALLOW ICE PACKS TO BE ON FOR 20 MIN AND THEN OFF X 20 MIN.
[2019-03-04 16:43] VITALS: Ht 167.6 cm; Wt 59.0 kg
--- NOTE | 2019-03-04 16:54 | NUR ---
I TRIED TO CALL CONSULT FOR DR DONNELLY AT [phone] AND HIS MAILBOX IS FULL. UNABLE TO LEAVE A MESSAGE AT THIS TIME. WILL TRY AGAIN TO CALL.
--- NOTE | 2019-03-04 17:25 | NUR ---
NEW ORDERS PER DR GUZMÁN. MEDICAL RELEASE FORM FAXRF TO [facility] IN [place].
--- NOTE | 2019-03-04 18:20 | NUR ---
CALLED AGAIN ON CELL PHONE TO DR DONNELLY, MAIL BOX FULL. NO ANSWER. WILL LET BUTTON SEWER HAND BE AWARE OF THIS.
[2019-03-04 20:00] VITALS: BP 143/76
--- NOTE | 2019-03-04 22:13 | NUR ---
PT SITTING UP IN BED TALKING ON PHONE. PT IS ALERT AND ORIENTED X4. PT DENIES ANY PAIN OR NEEDS AT THIS TIME. BED LOW CALL LIGHT WITHIN REACH. WILL CONTINUE TO MONITOR.
--- NOTE | 2019-03-05 01:25 | NUR ---
PT COMPLAING OF 10/10 PAIN IN LOWER LEGS. PRN PAIN MEDICATIONGIVEN SEE JAN. BED LOWW CALL LIGHT WITHIN REACH. WILL CONTINUE TO MONITOR.
--- NOTE | 2019-03-05 01:38 | NUR ---
PT RESTING COMFORTABLY IN BED. RR EVEN AND UNLABORED. NO S/S OF DISTRESS. BED LOW CALL LIGHT WITHIN REACH. WILL CONTINUE TO MONITOR.
[2019-03-05 04:00] VITALS: BP 110/79
--- NOTE | 2019-03-05 04:21 | NUR ---
PT REQUESTING ICE FOR LEGS. PAIN 06/02. BED LOW CALL LIGHT WITHIN REACH. WILL CONTINUE TO MONITOR.
--- NOTE | 2019-03-05 04:38 | NUR ---
I have reviewed this patient and I concur with the Shift Assessment completed by the Licensed Practical Nurse today this shift.
--- NOTE | 2019-03-05 07:18 | NUR ---
ROUNDING DONE WITH PATIENT REQUESTING MORE PAIN MEDS. GAS WELDER, JER DOSHI TO GIVE DILAUDID. 3+ EDEMA SEEN TO BILATERAL LEGS AND FEET. RES. LEFT ARM WITH AVF WITH + BRUIT AND THRILL. ON ROOM AIR. RIGHT FA PIV SEEN WITH SALINE LOCK, ORANGE SWAB CAP IN USE.
[2019-03-05 07:48] LABS: BASOPHILS 0.2 % (0-2); EOSINOPHILS 0.2 % (0-7); HEMATOCRIT 30.4 % (36.0-48.0); HEMOGLOBIN 9.9 g/dL (12-16); IMMATURE GRANULOCYTES 0.5 % (0-5); LYMPHOCYTES 10.4 % (15-50); MCH 31.7 pg (26.0-34.0); MCHC 32.6 g/dL (31.0-37.0); MCV 97.4 fL (80.0-100.0); MEAN PLATELET VOLUME 10.6 fL (7.4-10.4); NEUTROPHILS 80.7 % (40-80); PLATELET COUNT 172 10x3/uL (130-400); RBC 3.12 10x6/uL (4.00-5.40); RDW 13.6 % (11.5-14.5)
[2019-03-05 08:00] LABS: WBC 6.6 10x3/uL (4.8-10.8)
[2019-03-05 08:06] LABS: ANION GAP 15.1 mmol/L (8-16); CARBON DIOXIDE 27.7 mmol/L (21.0-32.0); POTASSIUM - SERUM 3.8 mmol/L (3.5-5.1)
[2019-03-05 08:07] LABS: CREATININE - SERUM 6.6 mg/dL (0.6-1.3)
--- NOTE | 2019-03-05 08:20 | NUR ---
SITTING IN CHAIR AT BEDSDIE WITH FEET ELEVATED ON BED.
--- NOTE | 2019-03-05 10:06 | NUR ---
1000-TO DIALYSIS VIA BED.
[2019-03-05 10:21] VITALS: BP 142/84
--- NOTE | 2019-03-05 12:34 | NUR ---
STILL OFF THE FLOOR IN DIALYSIS.
--- NOTE | 2019-03-05 15:15 | NUR ---
RETURNS FROM DIALYSIS. REQUESTING IV PAIN MEDS. WILL GIVE.
[2019-03-05 16:11] LABS: ANCA - ANTIMYELOPEROXIDASE <9.0 U/mL (0.0-9.0); ANCA - ANTIPROTEINASE 3 <3.5 U/mL (0.0-3.5); ANCA - ATYPICAL <1:20 titer (Neg:<1:20); ANCA - CYTOPLASMIC <1:20 titer (Neg:<1:20); ANCA - PERINUCLEAR <1:20 titer (Neg:<1:20)
[2019-03-05 16:45] VITALS: BP 152/65
--- NOTE | 2019-03-05 18:38 | NUR ---
AWAITING DISCHARGE ORDERS.
--- NOTE | 2019-03-05 19:28 | NUR ---
EVENING ROUNDS COMPLETED. REPORT RECEIVED. PT SITTING UP IN BED WITH EYES OPEN, RR EVEN AND UNLABORED. BED IN LOW POSITION. NO S/S OF DISTRESS. INTRODUCED SELF TO PT. PT REQUESTED TO HAVE SOMETHING TO DRINK. PROVIDED PT 2 VINITA LEMON [place] [employer]. PT DENIES FURTHER NEEDS AT THIS TIME. STATING PAIN MEDICATION HAS BEEN EFFECTIVE. DAUGHTTER AT BEDSIDE. CALL LIGHT IN REACH. WILL CTM.
--- NOTE | 2019-03-05 20:33 | NUR ---
RIGHT FOREARM PIV REMOVED, MINIMAL BLEEDING NOTED. DISCHARGE EDUCATION PROVIDED TO PT. PT STATES UNDERSTANDING AND TO FOLLOW UP WITH PRIMARY CARE PROVIDER. PT STATES [facility] AND WILL CALL THEM TOMORROW FOR AN APPOINTMENT.
--- NOTE | 2019-03-08 08:22 | MORECARE ---
CASE MANAGEMENT DISCHARGE SUMMARY PATIENT: ARTHUR JUNG UNIT: [id number] ADM DATE: 03/03/19 AGE: 53 : 61 SEX: F ROOM/BED: D.4976 AUTHOR: LIDA LEPE PHYSICIAN: REFERRING PHYSICIAN: BRYAN GUZMÁN MD DATE OF SERVICE: 03/08/19 Discharge Plan Patient Name: ARTHUR JUNG [facility] [facility] 1965 Planned Disposition: Home Anticipated Discharge Date: 03/05/19 Discharge Date: 03/05/2019 Expected LOS: 2 Initial Reviewer: [id number] Initial Review Date: 03/08/2019 Generated: 03/08/19 9:22 am Patient Name: ARTHUR JUNG Page 84493 at 0822 All edits/amendments must be made on the electronic document DICTATION DATE: 03/08/19820 GATHERING WORKER: SARA 03/08/19820 RPT#: [id number] DC DATE:03/05/19 STATUS: DIS IN [facility] [address] [place] [address] END OF REPORT
== END 2019-03-05 21:18 | disposition home or self-care (01) | DRG 306 ==
LOC: D.ER 04:18 → D.EDHOLD 07:58 → D.M2 07:58
PROVIDERS: Family Medicine; ADMIT Internal Medicine Nephrology; ATTEND Internal Medicine Nephrology
PROC: 5A1D70Z Performance of Urinary Filtration, Intermittent, Less than 6 Hours Per Day (ICD-10-PCS; principal; 2019-03-03)
DX: I08.1 Rheumatic disorders of both mitral and tricuspid valves (principal); N18.6 End stage renal disease; I13.2 Hypertensive heart and chronic kidney disease with heart failure and with stage 5 chronic kidney disease, or end stage renal disease; I42.9 Cardiomyopathy, unspecified; I77.6 Arteritis, unspecified; D50.9 Iron deficiency anemia, unspecified; K11.20 Sialoadenitis, unspecified; Z99.2 Dependence on renal dialysis; J44.9 Chronic obstructive pulmonary disease, unspecified; K21.9 Gastro-esophageal reflux disease without esophagitis; I50.9 Heart failure, unspecified

== ENCOUNTER 2019-03-16 01:16 | Inpatient (IN) | payer MEDICARE, BC ==
[~2019-03-16] VITALS: Ht 167.6 cm; Wt 66.7 kg
[2019-03-16 02:07] LABS: HEMATOCRIT 34.2 % (36.0-48.0); HEMOGLOBIN 11.4 g/dL (12-16); LYMPHOCYTES 15.2 % (15-50); MCH 32.9 pg (26.0-34.0); MCHC 33.3 g/dL (31.0-37.0); MCV 98.8 fL (80.0-100.0); MEAN PLATELET VOLUME 10.7 fL (7.4-10.4); NEUTROPHILS 76.3 % (40-80); RBC 3.46 10x6/uL (4.00-5.40); RDW 14.2 % (11.5-14.5); WBC 7.6 10x3/uL (4.8-10.8)
[2019-03-16 02:10] LABS: PLATELET COUNT 120 10x3/uL (130-400)
[2019-03-16 02:17] LABS: APTT 23.1 SECONDS (22.8-39.4); INR 1.26 (0.85-1.17); PROTIME 15.3 SECONDS (11.6-15.0)
[2019-03-16 02:20] LABS: ALBUMIN 3.6 g/dL (3.4-5.0); ALKALINE PHOSPHATASE 104 U/L (46-116); ALT (SGPT) 10 U/L (10-68); BILIRUBIN - TOTAL 0.63 mg/dL (0.2-1.3); CALC OSMOLALITY 280 mosm/kg (275-300); CALCIUM 7.8 mg/dL (8.5-10.1); CARBON DIOXIDE 25.3 mmol/L (21.0-32.0); CHLORIDE - SERUM 99 mmol/L (98-107); CREATININE - SERUM 4.4 mg/dL (0.6-1.3); GLUCOSE 98 mg/dL (74-106); POTASSIUM - SERUM 4.5 mmol/L (3.5-5.1); PROTEIN - SERUM 6.8 g/dL (6.4-8.2); SODIUM 138 mmol/L (136-145); UREA NITROGEN 26 mg/dL (7-18); eGFR NON AFRICAN AMERICAN 11 mL/min (90-120)
[2019-03-16 02:32] LABS: CKMB 1.2 U/L (0.0-3.6); CREATINE KINASE 72 UL (21-215); TROPONIN-I 0.037 ng/mL (0.000-0.060)
--- NOTE | 2019-03-16 02:46 | NUR ---
FLU SWAB TO LAB.
[2019-03-16 03:04] VITALS: BP 146/95
--- NOTE | 2019-03-16 04:44 | NUR ---
AFTER HEAD TO TOE ASSESSMENT NO PATCH FOUND FOR FENTENYL. CALLED [facility]. NEW ORDER FOR NORHI Q4HP.
[2019-03-16 05:39] VITALS: BP 99/43
--- NOTE | 2019-03-16 07:38 | NUR ---
PT ARRIVED TO UNIT TO ROOM 1202 FROM ER, ORIENTATED TO ROOM CL IN REACH
[2019-03-16 08:25] VITALS: BP 112/46
[2019-03-16 12:00] VITALS: BP 133/78
[2019-03-16 13:01] VITALS: BMI 23.4
[2019-03-16 14:27] VITALS: Ht 167.6 cm; Wt 66.7 kg
[2019-03-16 16:00] VITALS: BP 132/79
--- NOTE | 2019-03-16 17:07 | NUR ---
THIS NURSE AGREES WITH THE DISTRIBUTOR SALES CONSULTANT CHARTING
[2019-03-16 20:00] VITALS: BP 120/61
--- NOTE | 2019-03-16 22:00 | NUR ---
PATIENT STATED "i DO NOT WANT TO BE DISTURBED AFTER MIDNIGHT." THIS NURSE NOTIFIED RESPIRATORY OF THIS REQUEST. CALL LIGHT WITHIN REACH. WILL CONTINUE TO MONITOR.
--- NOTE | 2019-03-17 00:05 | NUR ---
PATIENT RECEIVED LAYING IN BED. VITAL SIGNS & ASSESSMENT DONE. PATIENT HAD NO C/O PAIN OR DISTRESS. PATIENT FAMILY VISITING. CALL LIGHT & BEDSIDE TABLE WITHIN REACH. WILL CONTINUE TO MONITOR.
--- NOTE | 2019-03-17 03:41 | NUR ---
PATIENT AWAKE REQUEST THAT RESPIRATORY COME AT SCHEDULED TIME. PATIENT CALL LIGHT WITHIN REACH. WILL CONTINUE TO MONITOR.
[2019-03-17 04:29] VITALS: BP 119/59
[2019-03-17 07:43] LABS: BASOPHILS 0 % (0-2); EOSINOPHILS 0 % (0-7); HEMATOCRIT 30.8 % (36.0-48.0); HEMOGLOBIN 10.1 g/dL (12-16); IMMATURE GRANULOCYTES 0.4 % (0-5); LYMPHOCYTES 8.8 % (15-50); MCH 31.6 pg (26.0-34.0); MCHC 32.8 g/dL (31.0-37.0); MEAN PLATELET VOLUME 11.2 fL (7.4-10.4); MONOCYTES 1.5 % (2-11); NEUTROPHILS 89.3 % (40-80); PLATELET COUNT 120 10x3/uL (130-400); RDW 14.3 % (11.5-14.5)
[2019-03-17 07:46] LABS: ALBUMIN 2.8 g/dL (3.4-5.0); ANION GAP 16.9 mmol/L (8-16); BILIRUBIN - TOTAL 0.54 mg/dL (0.2-1.3); CALCIUM 7.9 mg/dL (8.5-10.1); CARBON DIOXIDE 25.6 mmol/L (21.0-32.0); POTASSIUM - SERUM 4.5 mmol/L (3.5-5.1); PROTEIN - SERUM 5.6 g/dL (6.4-8.2)
[2019-03-17 07:47] LABS: CREATININE - SERUM 6.3 mg/dL (0.6-1.3)
[2019-03-17 08:07] LABS: MCV 96.3 fL (80.0-100.0); WBC 5.2 10x3/uL (4.8-10.8)
[2019-03-17 09:42] VITALS: BP 140/77
[2019-03-17 13:33] VITALS: BP 120/60
--- NOTE | 2019-03-17 14:22 | NUR ---
IV INFILTRATED, REMOVED IT. WILL ATTEMPT TO START A NEW ONE.
[2019-03-17 17:41] VITALS: BP 153/76
--- NOTE | 2019-03-17 19:50 | NUR ---
SITTING UP IN BED. ALERT AND ORIENTED. SLIGHTLY ANXIOUS. RESP EVEN AND NONLABORED. O2 @1.5L/NC. BBS COARSE WITH EXP WHEEZES. NONPROD COUGH NOTED. BRUISES NOTED TO BUE. LT ARM RESERVE WITH AV FISTULA WITH DRSG INTACT. THRILL FELT. NO IV ACCESS AT THIS TIME. STATES HER IV HAS BEEN OUT ALL AFTERNOON. OFFERED TO ATTEMPT TO RESTART IT AND SHE REFUSED. REQUESTS THAT THE ACCESS NURSE BE CONSULTED BECAUSE SHE IS A DIFFICULT "STICK". AMBULATORY. NO ACUTE DISTRESS. SR ELEVATED X2. CL IN REACH.
[2019-03-17 20:07] VITALS: BP 132/78
--- NOTE | 2019-03-17 20:38 | NUR ---
REQUESTS XANAX FOR ANXIETY. MEDICATED ORDERED. REQUESTS THAT V/S NOT BE TAKEN AT MIDNIGHT BECAUSE SHE DOESNT WANT TO BE DISTURBED. CL IN REACH.
--- NOTE | 2019-03-18 01:33 | NUR ---
MEDICATED WITH NORCO FOR C/O HEADACHE. CL IN REACH.
[2019-03-18 03:36] VITALS: BP 136/65
--- NOTE | 2019-03-18 04:00 | NUR ---
PT CHANGED HER MIND ABOUT STAFF TRYING TO START HER IV. STAFF ATTEMPTED TO RESTART IV X2 ATTEMPTS WITHOUT SUCCESS. WILL PROCEED PLANNED WITH CONSULTING THE ACCESS NURSE.
--- NOTE | 2019-03-18 07:31 | NUR ---
VENOUS ACCESS NURSE ORDER CANCELED DUE TO PT BEING RENAL. WILL SPEAK WITH RENAL TO SEE WHAT TYPE OF ACCESS WE CAN GET FOR HER. WILL FOLLOW UP WITH NEW ORDERS IF ANY.
[2019-03-18 08:22] VITALS: BP 151/82
--- NOTE | 2019-03-18 08:34 | NUR ---
RESUMING PT CARE, PT IS LAYING IN BED WITH EYES CLOSED, RESPIRATIONS EVEN AND UNLABORED. CALL LIGHT IN REACH, WILL CONTINUE TO MONITOR AND FOLLOW PLAN OF CARE.
[2019-03-18 11:45] VITALS: BP 127/69
--- NOTE | 2019-03-18 12:44 | NUR ---
Nutrition Follow Up: Pt was out of the room at the time of RD visit. Interview deferred. Diet: Regular PO Intake: 88% meal avg No BM since admit Labs reviewed Meds noted including Solu Medrol Rec continue current diet. RD following.
--- NOTE | 2019-03-18 14:14 | MORECARE ---
CASE MANAGEMENT DISCHARGE SUMMARY PATIENT: ARTHUR JUNG UNIT: [id number] ADM DATE: 03/16/19 AGE: 53 : 61 SEX: F ROOM/BED: D.1202 AUTHOR: LIDA LEPE PHYSICIAN: REFERRING PHYSICIAN: TAYE MACIAS MD DATE OF SERVICE: 03/18/19 Discharge Plan Patient Name: ARTHUR JUNG [facility] [facility] 1965 Planned Disposition: Home Anticipated Discharge Date: Discharge Date: Expected LOS: Initial Reviewer: [email or web address] Initial Review Date: 03/18/2019 Generated: 03/18/19 3:14 pm Patient Name: ARTHUR JUNG Page 68218 at 1414 All edits/amendments must be made on the electronic document DICTATION DATE: 03/18/19 1413 INSTALLATION HELPER: SARA 03/18/19 1413 RPT#: [id number] DC DATE: STATUS: ADM IN [facility] [address] [place] [address] END OF REPORT
--- NOTE | 2019-03-18 14:21 | MORECARE ---
CASE MANAGEMENT DISCHARGE SUMMARY PATIENT: ARTHUR JUNG UNIT: [id number] ADM DATE: 03/16/19 AGE: 53 : 61 SEX: F ROOM/BED: D.1202 AUTHOR: LIDA LEPE PHYSICIAN: REFERRING PHYSICIAN: TAYE MACIAS MD DATE OF SERVICE: 03/18/19 Discharge Plan Patient Name: ARTHUR JUNG [facility] [facility] 1965 Planned Disposition: Home Anticipated Discharge Date: Discharge Date: Expected LOS: Initial Reviewer: [email or web address] Initial Review Date: 03/18/2019 Generated: 03/18/19 3:21 pm DCPIA - Discharge Planning Initial Assessment Updated by [email or web address]: Temi Hart on 03/18/19 2:20 pm * Is the patient Alert and Oriented? Yes * How many steps to enter\exit or inside your home? 4-5 * PCP Dr. Franco * [facility] * Preadmission Environment Home Alone * ADLs Independent * Equipment Walker Wheelchair * Other Equipment has 02,walker and WC * List name and contact numbers for known caregivers / representatives who currently or will assist patient after discharge: Judie Bear [phone] * Verbal permission to speak to the caregivers and representatives has been obtained from the patient. Yes * Community resources currently utilized None * Can the patient safely return to the preadmission environment? Yes * Has this patient been hospitalized within the prior 30 days at any hospital? Yes Last DP export: 03/18/19 1:14 p Patient Name: ARTHUR JUNG Page 29306 at 1421 All edits/amendments must be made on the electronic document DICTATION DATE: 03/18/19 142 MATERIAL SPREADER: SARA 03/18/19 142 RPT#: [id number] DC DATE: STATUS: ADM IN [facility] [address] [place] [address] END OF REPORT
--- NOTE | 2019-03-18 14:30 | MORECARE ---
CASE MANAGEMENT DISCHARGE SUMMARY PATIENT: ARTHUR JUNG UNIT: [id number] ADM DATE: 03/16/19 AGE: 53 : 61 SEX: F ROOM/BED: D.1202 AUTHOR: LIDA LEPE PHYSICIAN: REFERRING PHYSICIAN: TAYE RAMOS MD DATE OF SERVICE: 03/18/19 Discharge Plan Patient Name: ARTHUR JUNG Facility: [facility]:[place] : 1965 Planned Disposition: Home Anticipated Discharge Date: Discharge Date: Expected LOS: Initial Reviewer: [email or web address] Initial Review Date: 03/18/2019 Generated: 03/18/19 3:29 pm Comments DCP- Discharge Planning Updated by [email or web address]: Temi Hart on 03/18/19 1:[address] Patient Name: ARTHUR JUNG Admission Status: ER Accout number: [id number] Admission Date: 03-16-2019 : 1965 Admission Diagnosis:PNEUMONIA, UNSPECIFIED ORGANISM Attending: Taye Ramos Current LOS: 2 Anticipated DC Date: Planned Disposition: Home Primary Insurance: MEDICARE A & B Discharge Planning Comments: Spoke to pt about discharge needs. Has home o2 but no nebulizer, has WC and Walker at home. Has steps at home but no trouble with them and feels home is safe to return to. Goes to HD M,W,F drives self to HD. Manager Of Construction: Temi Hart DCPIA - Discharge Planning Initial Assessment Updated by [email or web address]: Temi Hart on 03/18/19 2:20 pm * Is the patient Alert and Oriented? Yes * How many steps to enter\exit or inside your home? 4-5 * PCP Dr. Franco * [facility] * Preadmission Environment Home Alone * ADLs Independent * Equipment Walker Wheelchair * Other Equipment has 02,walker and WC * List name and contact numbers for known caregivers / representatives who currently or will assist patient after discharge: Judie Bear [phone] * Verbal permission to speak to the caregivers and representatives has been obtained from the patient. Yes * Community resources currently utilized None * Can the patient safely return to the preadmission environment? Yes * Has this patient been hospitalized within the prior 30 days at any hospital? Yes Last DP export: 03/18/19 1:21 p Patient Name: ARTHUR JUNG Page 39438 at 1430 All edits/amendments must be made on the electronic document DICTATION DATE: 03/18/191428 RAWHIDE BONE ROLLER: SARA 03/18/191428 RPT#: [id number] DC DATE: STATUS: ADM IN [facility] [address] [place] [address] END OF REPORT
[2019-03-18 16:10] VITALS: BP 137/67
--- NOTE | 2019-03-18 16:39 | MORECARE ---
CASE MANAGEMENT DISCHARGE SUMMARY PATIENT: ARTHUR JUNG UNIT: [id number] ADM DATE: 03/16/19 AGE: 53 : 61 SEX: F ROOM/BED: D.1202 AUTHOR: LIDA LEPE PHYSICIAN: REFERRING PHYSICIAN: TAYE RAMOS MD DATE OF SERVICE: 03/18/19 Discharge Plan Patient Name: ARTHUR JUNG Facility: [facility]:[place] : 1965 Planned Disposition: Home Anticipated Discharge Date: Discharge Date: Expected LOS: Initial Reviewer: [email or web address] Initial Review Date: 03/18/2019 Generated: 03/18/19 5:39 pm Comments DCP- Discharge Planning Updated by [email or web address]: Temi Hart on 03/18/19 1:[address] Patient Name: ARTHUR JUNG Admission Status: ER Accout number: [id number] Admission Date: 03-16-2019 : 1965 Admission Diagnosis:PNEUMONIA, UNSPECIFIED ORGANISM Attending: Taye Ramos Current LOS: 2 Anticipated DC Date: Planned Disposition: Home Primary Insurance: MEDICARE A & B Discharge Planning Comments: Spoke to pt about discharge needs. Has home o2 but no nebulizer, has WC and Walker at home. Has steps at home but no trouble with them and feels home is safe to return to. Goes to HD M,W,F drives self to HD. Diabetes Education Coordinator: Temi Hart DCPIA - Discharge Planning Initial Assessment Updated by [email or web address]: Temi Hart on 03/18/19 2:20 pm * Is the patient Alert and Oriented? Yes * How many steps to enter\exit or inside your home? 4-5 * PCP Dr. Franco * [facility] * Preadmission Environment Home Alone * ADLs Independent * Equipment Walker Wheelchair * Other Equipment has 02,walker and WC * List name and contact numbers for known caregivers / representatives who currently or will assist patient after discharge: Judie Bear [phone] * Verbal permission to speak to the caregivers and representatives has been obtained from the patient. Yes * Community resources currently utilized None * Can the patient safely return to the preadmission environment? Yes * Has this patient been hospitalized within the prior 30 days at any hospital? Yes Last DP export: 03/18/19 1:29 p Patient Name: ARTHUR JUNG Page 74901 at 1639 All edits/amendments must be made on the electronic document DICTATION DATE: 03/18/191637 SOLUTION LEAD: SARA 03/18/191637 RPT#: [id number] DC DATE: STATUS: ADM IN [facility] [address] [place] [address] END OF REPORT
--- NOTE | 2019-03-18 19:50 | NUR ---
AMBULATING IN ROOM. RESTLESS. ALERT AND ORIENTED X4. BRUISES NOTED TO BUE. AV FISTULA NOTED TO LT UPPER ARM. RESP IRREG, SOB WITH MIN EXERTION. O2 @ 2L/NC. BBS COARSE WITH EXP WHEEZES. NO EDEMA NOTED. NONPROD COUGH AT TIMES. SALINE LOCK NOTED TO RT UPPER ARM. PT IS LT ARM RESERVE. NO DISTRESS. STATES SHE IS WANTING TO GO HOME TOMORROW. SR ELEVATED X2. CL IN REACH.
[2019-03-18 20:40] VITALS: BP 139/91
--- NOTE | 2019-03-18 21:00 | NUR ---
MEDICATED WITH NORCO FOR C/O HEADACHE AND BACK PAIN. CL IN REACH.
--- NOTE | 2019-03-19 00:05 | NUR ---
NO MIDNIGHT V/S TAKEN PER PT REQUEST.
--- NOTE | 2019-03-19 04:34 | NUR ---
HAS RESTED WELL TONIGHT. NO DISTRESS. CL IN REACH.
[2019-03-19 04:46] VITALS: BP 91/53
--- NOTE | 2019-03-19 08:10 | NUR ---
AWAKE AND ALERT. ORIENTED X3. NO C/O AT THIS TIME. REQUESTED AND GIVEN RENELGEL AND XANAX PRIOR TO EATING. WILL MONITOR. LUNGS ARE DIMINISHED WITH INSPIRATORY WHEEZES NOTED TO LOWER LOBES, REPORTS OCCASSIONALLY PRODUCTIVE COUGH BUT NOT ALL THE TIME. SKIN IS INTACT WITHOUT REDNESS. SL TO RIGHT UPPER ARM PATENT WITHOUT REDNESS AT INSERTION SITE. FISTULA TO LEFT UPPER ARM WITH GOOD BRUIT AND THRILL. DENIES FURTHER NEEDS. BREAKFAST SERVED IN ROOM.
--- NOTE | 2019-03-19 09:00 | NUR ---
OFF UNIT VIA BED TO DIALYSIS.
[2019-03-19 09:13] LABS: IMMUNOGLOBULIN A 77 mg/dL (87-352)
[2019-03-19 09:33] VITALS: BP 126/70
[2019-03-19] MEDS ORDERED: OMNICEF300 MG PO (10:22)
[2019-03-19] MEDS ORDERED: FLORAJEN3 CAPS460 MG PO (10:23)
[2019-03-19] MEDS ORDERED: VIBRAMYCIN 100100 MG PO (10:23)
[2019-03-19] MEDS ORDERED: PROTONIX40 MG PO (10:23)
[2019-03-19] MEDS ORDERED: IPRAT-ALBUT 0.5-3 ML UPD (11:18)
[2019-03-19] MEDS ORDERED: STERAPRED DS 1010 MG PO (11:18)
[2019-03-19] MEDS ORDERED: BREO ELLIPTA 21 EACH (11:19)
[2019-03-19] MEDS ORDERED: SINGULAIR10 MG PO (11:19)
[2019-03-19] MEDS ORDERED: FLUTICASONE PRO16 GM NASAL (11:20)
[2019-03-19] MEDS ORDERED: MUCINEX DM ER1 EAC1 PO (11:20)
[2019-03-19] MEDS ORDERED: TESSALON PERLE100 MG PO (11:20)
[2019-03-19] MEDS ORDERED: ALBUTEROL SULF8.5 GM INH (11:21)
--- NOTE | 2019-03-19 12:30 | NUR ---
RETURNED FROM DIALYSIS. DENIES NEEDS. LUNCH SERVED IN ROOM.
[2019-03-19] MEDS ORDERED: PROMETHAZINE W473 ML PO (14:02)
--- NOTE | 2019-03-19 14:07 | NUR ---
I CALLED AND SPOKE TO ROSE, PHARMACIST AND CALLED IN MEDICATIONS THAT WERE NOT SENT ESCRIPT TO [facility].
--- NOTE | 2019-03-19 15:24 | NUR ---
PATIENT DISCHARGED TO HOME. DISCHARGE INSTRUCTIONS GIVEN BOTH VERBALLY AND WRITTEN. ALL QUESTIONS ANSWERED. PATIENT VERBALIZED UNDERSTANDING OF SAME. SL TO RIGHT UPPER ARM D/C WITH CATHETER INTACT. WAITING ON RIDE AT THIS TIME. REQUESTED AND GIVEN ONE HYDROCODONE PO FOR C/O HEADACHE AT THIS TIME. WILL MONITOR.
--- NOTE | 2019-03-19 15:53 | MORECARE ---
CASE MANAGEMENT DISCHARGE SUMMARY PATIENT: ARTHUR JUNG UNIT: [id number] ADM DATE: 03/16/19 AGE: 53 : 61 SEX: F ROOM/BED: D.1202 AUTHOR: LIDA LEPE PHYSICIAN: REFERRING PHYSICIAN: TAYE RAMOS MD DATE OF SERVICE: 03/19/19 Discharge Plan Patient Name: ARTHUR JUNG Facility: [facility]:[place] : 1965 Planned Disposition: Home Anticipated Discharge Date: Discharge Date: Expected LOS: Initial Reviewer: [email or web address] Initial Review Date: 03/18/2019 Generated: 03/19/19 4:53 pm Comments DCP- Discharge Planning Updated by [email or web address]: Melody Santos on 03/19/19 2:[address] Late entry for 11:35 CM met with patient about orders for Nebulizer. Patient signed HARPAL for [facility]. CM informed patient that she would need someone to bring her portable O2 tank when they come pick her up from the hospital today. Patient verbalized understanding. CM explained and served DC IMM. CM called Xiomara Dixon with [facility] that patient is discharging to home today and will need to resume outpatient dialysis Fri/Fri/Fridays as previously scheduled. Xiomara verbalized understand. States everything is set up and ready for patient to resume dialysis as previously scheduled. 14:00 [facility] delivered Nebulizer. CM informed Rigging Loft Repairer, Lorraine, patient is ready for discharge. DCP- Discharge Planning Updated by [id number]: Temi Hart on 03/18/19 1:[address] Patient Name: ARTHUR JUNG Admission Status: ER Accout number: [id number] Admission Date: 03-16-2019 : 1965 Admission Diagnosis:PNEUMONIA, UNSPECIFIED ORGANISM Attending: Taye Ramos Current LOS: 2 Anticipated DC Date: Planned Disposition: Home Primary Insurance: MEDICARE A & B Discharge Planning Comments: Spoke to pt about discharge needs. Has home o2 but no nebulizer, has WC and Walker at home. Has steps at home but no trouble with them and feels home is safe to return to. Goes to HD M,W,F drives self to HD. Rubber Compounder Supervisor: Temi Hart DCPIA - Discharge Planning Initial Assessment Updated by [email or web address]: Temi Hart on 03/18/19 2:20 pm * Is the patient Alert and Oriented? Yes * How many steps to enter\exit or inside your home? 4-5 * PCP Dr. Franco * [facility] * Preadmission Environment Home Alone * ADLs Independent * Equipment Walker Wheelchair * Other Equipment has 02,walker and WC * List name and contact numbers for known caregivers / representatives who currently or will assist patient after discharge: Judie Bear [phone] * Verbal permission to speak to the caregivers and representatives has been obtained from the patient. Yes * Community resources currently utilized None * Can the patient safely return to the preadmission environment? Yes * Has this patient been hospitalized within the prior 30 days at any hospital? Yes Coverage Notice Reviewer: [email or web address] Santos Notice Issued Date-Time: 03/19/2019 11:35 Notice Type: Patient Choice Letter Notice Delivered To: Patient Relationship to Patient: Self Booth Cashier Name: Delivery Method: HAND - Hand Delivered [place] Days: Prior Verbal Notification: Recipient Understood Notice: Yes Recipient Signature: Yes Med Rec Note Co-signed by Attending: Coverage Notice Comment: Reviewer: [email or web address] Santos Notice Issued Date-Time: 03/19/2019 11:35 Notice Type: IM Discharge Notice Notice Delivered To: Patient Relationship to Patient: Self Booth Cashier Name: Delivery Method: HAND - Hand Delivered [place] Days: Prior Verbal Notification: Recipient Understood Notice: Yes Recipient Signature: Yes Med Rec Note Co-signed by Attending: Coverage Notice Comment: Last DP export: 03/18/19 3:39 p Patient Name: ARTHUR JUNG Page 12769 at 1553 All edits/amendments must be made on the electronic document DICTATION DATE: 03/19/19 155 SUPERVISOR SHEARING: SARA 03/19/19 1553 RPT#: [id number] MD DATE: STATUS: ADM IN [facility] [address] [place] [address] END OF REPORT
--- NOTE | 2019-03-19 17:00 | NUR ---
DISCHARGED TO HOME AMBULATORY WITH FAMILY. ALL BELONGINGS WITH PATIENT.
--- NOTE | 2019-03-20 11:12 | MORECARE ---
CASE MANAGEMENT DISCHARGE SUMMARY PATIENT: ARTHUR JUNG UNIT: [id number] ADM DATE: 03/16/19 AGE: 53 : 61 SEX: F ROOM/BED: D.1202 AUTHOR: LIDA LEPE PHYSICIAN: REFERRING PHYSICIAN: TAYE RAMOS MD DATE OF SERVICE: 03/20/19 Discharge Plan Patient Name: ARTHUR JUNG Facility: [facility]:[place] : 1965 Planned Disposition: Home Anticipated Discharge Date: Discharge Date: 03/19/2019 Expected LOS: Initial Reviewer: [email or web address] Initial Review Date: 03/18/2019 Generated: 03/20/19 12:12 pm Comments DCP- Discharge Planning Updated by [email or web address]: Melody Santos on 03/19/19 2:[address] Late entry for 11:35 CM met with patient about orders for Nebulizer. Patient signed HARPAL for [facility]. CM informed patient that she would need someone to bring her portable O2 tank when they come pick her up from the hospital today. Patient verbalized understanding. CM explained and served DC IMM. CM called Xiomara Dixon with [facility] that patient is discharging to home today and will need to resume outpatient dialysis Fri/Fri/Fridays as previously scheduled. Xiomara verbalized understand. States everything is set up and ready for patient to resume dialysis as previously scheduled. 14:00 [facility] delivered Nebulizer. CM informed Thermite Welder, Lorraine, patient is ready for discharge. DCP- Discharge Planning Updated by [email or web address]: Temi Hart on 03/18/19 1:[address] Patient Name: ARTHUR JUNG Admission Status: ER Accout number: [id number] Admission Date: 03-16-2019 : 1965 Admission Diagnosis:PNEUMONIA, UNSPECIFIED ORGANISM Attending: Taye Ramos Current LOS: 2 Anticipated DC Date: Planned Disposition: Home Primary Insurance: MEDICARE A & B Discharge Planning Comments: Spoke to pt about discharge needs. Has home o2 but no nebulizer, has WC and Walker at home. Has steps at home but no trouble with them and feels home is safe to return to. Goes to HD M,W,F drives self to HD. Third Cook: Temi Hart DCPIA - Discharge Planning Initial Assessment Updated by [email or web address]: Temi Hart on 03/18/19 2:20 pm * Is the patient Alert and Oriented? Yes * How many steps to enter\exit or inside your home? 4-5 * PCP Dr. Franco * [facility] * Preadmission Environment Home Alone * ADLs Independent * Equipment Walker Wheelchair * Other Equipment has 02,walker and WC * List name and contact numbers for known caregivers / representatives who currently or will assist patient after discharge: Judie Bear [phone] * Verbal permission to speak to the caregivers and representatives has been obtained from the patient. Yes * Community resources currently utilized None * Can the patient safely return to the preadmission environment? Yes * Has this patient been hospitalized within the prior 30 days at any hospital? Yes Coverage Notice Reviewer: [email or web address] Santos Notice Issued Date-Time: 03/19/2019 11:35 Notice Type: Patient Choice Letter Notice Delivered To: Patient Relationship to Patient: Self Pressure Test Operator Name: Delivery Method: HAND - Hand Delivered Ely Days: Prior Verbal Notification: Recipient Understood Notice: Yes Recipient Signature: Yes Med Rec Note Co-signed by Attending: Coverage Notice Comment: Reviewer: [email or web address] Santos Notice Issued Date-Time: 03/19/2019 11:35 Notice Type: IM Discharge Notice Notice Delivered To: Patient Relationship to Patient: Self Pressure Test Operator Name: Delivery Method: HAND - Hand Delivered Ely Days: Prior Verbal Notification: Recipient Understood Notice: Yes Recipient Signature: Yes Med Rec Note Co-signed by Attending: Coverage Notice Comment: Last DP export: 03/19/19 2:53 p Patient Name: ARTHUR JUNG Page 66053 at 1112 All edits/amendments must be made on the electronic document DICTATION DATE: 03/20/19 1111 UNDERPRESSER HAND: SARA 03/20/19 1111 RPT#: [id number] DC DATE:03/19/19 STATUS: DIS IN [facility] [address] [place] [address] END OF REPORT
[2019-03-20 15:08] LABS: ANGIOTENSIN CONVERTING ENZYME < 15 U/L (14-82)
[2019-03-22 14:09] LABS: IGG SUBCLASS 1 318 mg/dL (248-810); IGG SUBCLASS 2 38 mg/dL (130-555); IGG SUBCLASS 3 21 mg/dL (15-102); IGG SUBCLASS 4 5 mg/dL (2-96); IMMUNOGLOBULIN G 476 mg/dL (700-1600)
== END 2019-03-19 17:00 | disposition home or self-care (01) | DRG 177 ==
LOC: D.ER 01:16 → D.M3 04:21 → D.EDHOLD 04:21 → D.M3 07:15
PROVIDERS: Family Medicine; Internal Medicine Pulmonary Disease; ADMIT Internal Medicine Nephrology; ATTEND Internal Medicine Nephrology
DX: J15.6 Pneumonia due to other Gram-negative bacteria (principal); N18.6 End stage renal disease; J96.01 Acute respiratory failure with hypoxia; I13.2 Hypertensive heart and chronic kidney disease with heart failure and with stage 5 chronic kidney disease, or end stage renal disease; J44.0 Chronic obstructive pulmonary disease with (acute) lower respiratory infection; J44.1 Chronic obstructive pulmonary disease with (acute) exacerbation; I50.32 Chronic diastolic (congestive) heart failure; L03.116 Cellulitis of left lower limb; L03.115 Cellulitis of right lower limb; Z99.2 Dependence on renal dialysis; J30.9 Allergic rhinitis, unspecified; I27.20 Pulmonary hypertension, unspecified; K21.9 Gastro-esophageal reflux disease without esophagitis; I25.10 Atherosclerotic heart disease of native coronary artery without angina pectoris; I08.1 Rheumatic disorders of both mitral and tricuspid valves; J15.212 Pneumonia due to Methicillin resistant Staphylococcus aureus; J69.0 Pneumonitis due to inhalation of food and vomit; Z87.891 Personal history of nicotine dependence

== ENCOUNTER 2019-04-08 08:25 | Outpatient (CLI) | payer MEDICARE, BC ==
[~2019-04-08] VITALS: Ht 167.6 cm; Wt 66.8 kg
--- NOTE | ~2019-04-08 | HEMODYNAMI ---
PATIENT:ARTHUR JUNG MEDICAL RECORD: [id number] : 61 LOCATION:D.CAT ADMISSION DATE: 04/08/19 Generatedon:04/08/201911:34 Patient name: ARTHUR JUNG Patient #: [id number] SSN : : 1965 Date of study: 04/08/2019 Page: Of Hemodynamic Procedure Report Patient Data Patient Demographics Procedure consent was obtained First Name: ARTHUR Gender: Female Last Name: FABIANA : 1965 Middle Initial: R Age: 53 year(s) Patient #: [id number] Race: Unknown Additional ID: [id number] Contact details [address]: [address] [place] [address] State: [place] City: [place] Zip code: [address] Past Medical History Allergies Allergen Reaction Date Comments Reported Aspirin 04/08/2019 Demerol 04/08/2019 Penicillins 04/08/2019 Admission Admission Data Admission Date: 04/08/2019 Admission Time: 8:25 Procedure Procedure Types Cath Procedure Diagnostic Procedure Right Heart Right Heart Cath Procedure Description Procedure Date Procedure Date: 04/08/2019 Procedure Start Time: 11:10 Procedure End Time: 11:29 Procedure Staff Name Function Pedro Birmingham MD Performing Physician Jose R Lim RT Machine Sizer Hilary Mcmillan RT Monitor Milton Moyer RN Nurse Vi Torrez RT Scrub Procedure Data Cath Procedure Fluoroscopy Diagnostic fluoroscopy Total fluoroscopy Time: 1.8 time: 1.8 min min Diagnostic fluoroscopy Total fluoroscopy dose: 65 dose: 65 mGy mGy Contrast Material Contrast Material Type Amount (ml) Isovue 300 0 Entry Location Entry Primary Successful Side Size Upsize Upsize Entry Closure Gao ccessful Closure Location (Fr) 1 (Fr) 2 (Fr) Remarks Device Remarks Femoral Right 7 Fr Manual artery Short Compression Diagnostic catheters Device Type Used For End Catheter Placement SWAN 7Fr Thermodilution Pressure cather (131F7P) Measurement Procedure Complications No complications Procedure Medications Medication Administration Route Dosage 0.9% NaCl I.V. 10 ml/hr Oxygen etCO2 Nasal cannula 2 l/min Heparin Flush Bag added to field 2 bags (1000units/500ml NS) Lidocaine 2% added to field 20 Versed I.V. 2 mg Fentanyl I.V. 100 mcg Versed I.V. 0.5 mg Adenosine IV 3mg/ml I.V. 50 mcg/kg/min Adenosine IV 3mg/ml I.V. 100 mcg/kg/min Adenosine IV 3mg/ml I.V. 150 mcg/kg/min Adenosine IV 3mg/ml 150 mcg/kg/min Hemodynamics Rest Heart Rate: 62 (bpm) Pressure Samples Time Site Value (mmHg) Purpose Heart Use Rate(bpm) 11:15 PA 56/24(39) Snapshot 71 11:15 PA 56/24(39) Snapshot 72 11:16 PCW 32/49(39) Snapshot 73 11:16 PCW 33/47(37) Snapshot 73 11:22 PA 53/21(35) Snapshot 72 11:24 PA 51/20(34) Snapshot 72 11:26 PA 55/23(38) Snapshot 69 11:26 RV 54/7,20 Snapshot 70 11:26 RV 54/8,19 Snapshot 70 11:26 RA 20/19(17) Snapshot 71 11:26 RA 20/19(17) Snapshot 71 Snapshots Pre Cath Intra NCS Post Cath Vital Signs Time Heart Resp SPO2 etCO2 NIBP (mmHg) Rhythm Pain Sedation Rate (ipm) (%) (mmHg) Status Level (bpm) 10:54:39 91 28 100 39 144/84(105) NSR 0 (11) 10(A) , No pain 10:58:50 78 17 100 25.5 151/87(124) NSR 0 (11) 10(A) , No pain 11:03:09 71 14 96 0 129/73(92) NSR 0 (11) 10(A) , No pain 11:07:20 70 15 94 0 119/66(88) NSR 0 (11) 10(A) , No pain 11:11:26 73 13 98 34.5 126/73(109) NSR 0 (11) 10(A) , No pain 11:15:36 70 10 95 27.7 129/69(95) NSR 0 (11) 10(A) , No pain 11:19:46 71 18 95 18 126/71(88) NSR 0 (11) 9(A) , No pain 11:23:56 71 19 94 0 125/66(95) NSR 0 (11) 9(A) , No pain 11:28:02 76 22 95 42.7 124/76(102) NSR 0 (11) 10(A) , No pain Medications Time Medication Route Dose Verified Delivered Reason Notes Effectiveness by by 10:56:48 0.9% NaCl I.V. 10 ml/hr Milton Milton Per João Moyer physician RN RN 10:56:57 Oxygen etCO2 Nasal 2 l/min Milton Milton for low 02 cannula João Moyer sats RN RN 10:57:08 Heparin Flush added to 2 bags Milton Milton used for Bag field Lorigan João procedure (1000units/500ml RN RN NS) 10:57:18 Lidocaine 2% added to 20ml vial Milton Milton for local field Lorigan Lorigan anesthetic RN RN 11:08:26 Versed I.V. 2 mg Milton Milton for sedation João Moyer RN RN 11:08:34 Fentanyl I.V. 100 mcg Milton Milton for sedation Loralva Moyer RN RN 11:12:04 Versed I.V. 0.5 mg Milton Milton for sedation Loralva Moyer RN RN 11:20:45 Adenosine IV I.V. 50 Milton Milton for 3mg/ml mcg/kg/min Lorigan Lorigan vasodilation RN RN 11:23:07 Adenosine IV I.V. 100 Milton Milton for 3mg/ml mcg/kg/min Lorigan Lorigan vasodilation RN RN 11:24:46 Adenosine IV I.V. 150 Milton Milton for 3mg/ml mcg/kg/min Lorigan Lorigan vasodilation RN RN 11:27:21 Adenosine IV I.V.(turned 150 Milton Milton to sharp's 3mg/ml off) mcg/kg/min João Moyer RN community health educator Log Time Note 10:39:37 Jose R Lim RT(R) sent for patient. Start room use. 10:39:38 Time tracking: Regular hours (M-F 7:00 - 5:00) 10:39:42 Plan of Care:Hemodynamics will remain stable., Cardiac rhythm will remain stable., Comfort level will be maintained., Respiratory function will remain adequate., Patient/ family verbilizes understanding of procedure., Procedure tolerated without complication., Recovers from procedure without complications.. 10:47:46 Patient received from Pre/Post Procedure Room to CCL 2 Alert and oriented. Tansferred to table in Supine position. 10:47:47 Warm blankets applied, and nae hugger turned on for patient comfort. 10:47:47 Correct patient and procedure confirmed by team. 10:47:49 Signed procedure consent form obtained from patient. 10:47:49 ECG and BP/O2 sat monitors applied to patient. 10:47:50 Full Disclosure recording started 10:53:28 Vital chart was started 10:53:29 Baseline sample Acquired. 10:53:34 Rhythm: sinus rhythm 10:53:57 H&P Date Dictated: 04/05/2019 Within 30 days and on chart., H&P Addendum completed by physician on day of procedure. (MUST COMPLETE FOR ALL OUTPATIENTS). 10:53:59 Pre-procedure instructions explained to patient. 10:53:59 Pre-op teaching completed and patient verbalized understanding. 10:54:02 Family in patients room. 10:54:05 Patient NPO since Midnight. 10:54:15 Patient allergic to Aspirin 10:54:26 Patient allergic to Demerol 10:54:33 Patient allergic to Penicillins 10:54:36 Is the patient allergic to Iodine/contrast media? No. 10:54:43 Is patient on blood thinner?No 10:54:46 Patient diabetic? No. 10:54:47 ----Pre-sedation anethsthesia assessment.---- 10:54:50 Previous problem with sedation/anesthesia? No ? 10:54:52 Snore? No 10:54:53 Sleep apnea? No 10:54:55 Deviated septum? No 10:54:56 Opens mouth fully? Yes 10:54:58 Sticks out tongue? Yes 10:55:10 Airway obstruction? Yes HX: PX 10:55:14 Dentures? No ? 10:55:18 Pre procedure: right dorsailis pedis pulse 1+ Palpable, but thready & weak; easily obliterated 10:55:21 Patient pain scale 0/10 ?. 10:55:29 IV patent on arrival in left hand with 0.9% NaCl at O. 10:56:48 0.9% NaCl 10 ml/hr I.V. was administered by Milton Moyer RN; Per physician; 10::57 Oxygen 2 l/min etCO2 Nasal cannula was administered by Milton Moyer RN; for low 02 sats; :57:08 Heparin Flush Bag (1000units/500ml NS) 2 bags added to field was administered by Milton Moyer RN; used for procedure; 10:57:18 Lidocaine 2% 20ml vial added to field was administered by Milton Moyer RN; for local anesthetic; 11:02:41 Lab results completed and on chart. 11:02:44 Right groin area was prepped with chlora-prep and draped in sterile fashion 11::45 Alarms reviewed by R. N. 11::45 Sharps counted by scrub and verified by R.N. 11:02:48 Physician arrived 11:02:48 --------ALL STOP TIME OUT------ 11:02:49 Final Timeout: patient, procedure, and site verified with staff and physician. All members of the team are in agreement. 11:02:50 Right groin site verified by team. 11:02:56 Maximum allowable Isovue 300 dose 300ml. Physician notified. (300ml for normal creatinines. For patients with creatinine of 1.7 or higher multiply weight(kg) x 5 divided by creatinine.) 11:03:00 Fire Safety Assessment: A--An alcohol-based skin anteseptic being used preoperatively., C--Open oxygen or nitrous oxide is being used., D--An ESU, laser, or fiber-optic light is being used. 11:03:03 Physical assessment completed. ASA score P 2 - A patient with mild systemic disease as per Pedro Birmingham MD. 11:03:07 Sedation plan: IV Moderate Sedation Medication:Versed, Fentanyl 11:05:22 ACIST Syringe (54910) opened to sterile field. 11:05:22 Bag Decanter () opened to sterile field. 11:05:23 Medline Cath Pack ([id number]) opened to sterile field. 11:05:23 DIAGNOSTIC WIRE .035 260cm J wire (025333) opened to sterile field. 11:06:13 ACIST Hand Control (65713) opened to sterile field. 11:06:13 ACIST Manifold (77501) opened to sterile field. 11:06:15 Tegaderm 4 x 4 (1626W) opened to sterile field. 11:07:29 Zero performed for pressure channel P1 11:07:41 Baseline sample Acquired. 11:07:58 SHEATH 7FR [place] (HYF406) opened to sterile field. 11:08:26 Versed 2 mg I.V. was administered by Milton Moyer RN; for sedation; 11:08:34 Fentanyl 100 mcg I.V. was administered by Milton Moyer RN; for sedation; 11:10:04 Procedure started. 11:10:16 Local anesthetic to right femoral vein with Lidocaine 2% by Pedro Birmingham MD.INITIAL ACCESS ONLY 11:10:26 A 7 Fr Short sheath was inserted into the Right Femoral artery 11:10:43 Right Heart 11:11:08 Donnellson-Varun "S" tip catheter inserted 11:11:20 A SWAN 7Fr Thermodilution cather (131F7P) was advanced over the wire and used for Pressure Measurement. 11:11:39 Zero performed for pressure channel P1 11:12:04 Versed 0.5 mg I.V. was administered by Milton Moyer RN; for sedation; 11:20:45 Adenosine IV 3mg/ml 50 mcg/kg/min I.V. was administered by Milton Moyer RN; for vasodilation; 11:23:07 Adenosine IV 3mg/ml 100 mcg/kg/min I.V. was administered by Milton Moyer RN; for vasodilation; 11:24:46 Adenosine IV 3mg/ml 150 mcg/kg/min I.V. was administered by Milton Moyer RN; for vasodilation; 11:27:11 Right heart pressures obtained. 11:27:13 Donnellson-Varun removed. 11:27:21 Adenosine IV 3mg/ml 150 mcg/kg/min I.V.(turned off) was administered by Milton Moyer RN; to sharp's; 11:27:26 Sheath removed intact; hemostasis achieved with Manual Compression to the Right Femoral artery. 11:27:28 Procedure ended.(Physican Out) 11:27:57 Fluoroscopy time 01.80 minutes. 11:28:04 Flurop Dose total: 65 11:28:04 Fluoroscopy dose: 65 mGy 11:28:08 Contrast amount:Isovue 300 0ml. 11:28:10 Sharps counted by scrub and verified by R.N. 11:28:10 Insertion/operative site no bleeding no hematoma. 11:28:29 Post-op/insertion site Right Femoral vein dressed using a 4 x 4 and Tegaderm. 11:28:34 Post right femoral vein:stable 11:28:35 Post Procedure Pulses reassessed and unchanged 11:28:39 Post procedure: right dorsailis pedis pulse 2+ Normal; easily identifiable; not easily obliterated. 11:28:44 Post procedure rhythm: sinus rhythm 11:28:46 Post procedure instruction explained to patient.Patient verbalizes understanding. 11:28:47 Procedure and supply charges have been captured, reviewed, submitted and are correct. 11:29:14 Procedure Complication : No complications 11:29:17 Vital chart was stopped 11:29:18 See physician's report for complete and final results. 11:29:24 Report given to Pre/Post Procedure Room. 11:29:28 Patient transfered to Pre/Post Procedure Room with Stretcher. 11:29:30 Procedure ended. 11:29:30 Full Disclosure recording stopped 11:29:35 End room use (Document Last) Device Usage Item Name Manufacture Quantity Catalog Hospital Part Current [facility] l Lot# / Number Charge Number Stock Stock Serial# Code ACIST Syringe Acist 1 [id number] 109899 211152 20 (24040) [employer] Inc Bag Decanter Microtek 1 2001S 225065 99096 202460 5 () Medical Inc. Medline Cath Medline 1 [id number] 914596 66198 634378 5 Pack ([id number]) DIAGNOSTIC St [address] 1 028777 456337 788367 232258 30 WIRE .035 260cm J wire (255440) ACIST Hand Acist 1 45770 589934 657800 716726 5 Control Medical (44406) Systems Inc ACIST Manifold Acist 1 00184 846588 017143 650772 5 (59526) Medical Systems Inc Tegaderm 4 x 4 3M 1 1626W 437579 991785 236131 5 (1626W) SHEATH 7FR Terumo 1 [id number] 595044 818833 377595 5 [place] (GTH568) SWAN 7Fr Padilla 1 131F7P 948174 13326 793364 3 Thermodilution InboxciEclector cather (131F7P) Signature Audit [place] Stage Time Signature Unsigned Intra-Procedure 04/08/2019 Jose R STEVEN(Kurt) 11:34:18 AM Signatures Monitor : Hilary Signature : Counts RT Date : Time : [address] [place] [address]
[~2019-04-08 08:25] MED LIST changes: +ALBUTEROL SULF8.5 GM INH; +BREO ELLIPTA 21 EACH; +FLORAJEN3 CAPS460 MG PO; +FLUTICASONE PRO16 GM NASAL; +IPRAT-ALBUT 0.5-3 ML UPD; +MUCINEX DM ER1 EAC1 PO; +OMNICEF300 MG PO; +PROMETHAZINE W473 ML PO; +PROTONIX40 MG PO; +SINGULAIR10 MG PO; +TESSALON PERLE100 MG PO; +VIBRAMYCIN 100100 MG PO
[2019-04-08 09:47] VITALS: BP 137/68; Ht 167.6 cm; Wt 66.8 kg
[2019-04-08 10:24] LABS: HEMATOCRIT 32.5 % (36.0-48.0); HEMOGLOBIN 10.4 g/dL (12-16); MCH 31.9 pg (26.0-34.0); MCV 99.7 fL (80.0-100.0); PLATELET COUNT 111 10x3/uL (130-400); RBC 3.26 10x6/uL (4.00-5.40); RDW 13.6 % (11.5-14.5); WBC 2.3 10x3/uL (4.8-10.8)
[2019-04-08 10:37] LABS: ANION GAP 9.3 mmol/L (8-16); CALCIUM 8.8 mg/dL (8.5-10.1); CARBON DIOXIDE 29.5 mmol/L (21.0-32.0); CREATININE - SERUM 4.3 mg/dL (0.6-1.3); POTASSIUM - SERUM 3.8 mmol/L (3.5-5.1)
--- NOTE | 2019-04-08 12:00 | NUR ---
2L NC, NO RESP DISTRESS. RIGHT GROIN CDI WITH NO BLEEDING OR HEMATOMA NOTED. NO C/O PAIN OR NAUSEA. VSS. FAMILY AT BEDSIDE, CALL LIGHT WITHIN REACH.
[2019-04-08 12:46] LABS: EOSINOPHILS 4 % (0-7); LYMPHOCYTES 33 % (15-50); MONOCYTES 13 % (2-11); NEUTROPHILS 50 % (40-80); PLATELET ESTIMATE DECREASED
--- NOTE | 2019-04-08 12:50 | NUR ---
HOB ELEVATED 30 DEGREES. RIGHT GROIN CDI, NO BLEEDING OR HEMATOMA NOTED. SIPPING ON DRINK AND EATING SANDWICH WITH NO C/O NAUSEA. VSS. WILL CONTINUE TO MONITOR.
--- NOTE | 2019-04-08 13:22 | NUR ---
RIGHT PIV D/C'D WITH CATHETER INTACT, BAND AID TO SITE. UP TO BEDSIDE TO GET DRESSED. AMBULATED TO RESTROOM.
--- NOTE | 2019-04-08 13:30 | NUR ---
DISCHARGE INSTRUCTIONS GIVEN, VERBALIZED UNDERSTANDING.
--- NOTE | 2019-04-08 13:40 | NUR ---
TAKEN OUT VIA WHEELCHAIR BY CATH FINISH REMOVER. LEFT FACILITY WITH FAMILY AND ALL PERSONAL BELONGINGS.
== END 2019-04-08 13:40 | disposition home or self-care (01) ==
LOC: D.CATH 08:25
PROVIDERS: ATTEND Internal Medicine Cardiovascular Disease
DX: I27.20 Pulmonary hypertension, unspecified (principal); Z01.812 Encounter for preprocedural laboratory examination

== ENCOUNTER 2019-04-15 23:44 | Observation (INO) | payer MEDICARE, BC ==
[~2019-04-15] VITALS: Ht 167.6 cm; Wt 68.0 kg
--- NOTE | 2019-04-15 23:46 | NUR ---
fistula to left upper arm, hemodyalisis MWF
--- NOTE | 2019-04-15 23:56 | NUR ---
PT IN WITH C/O SOB THAT STARTED THIS MORNING , HAS WORSENED THROUGHOUT THE DAY. PATIENT IS WAITING FOR A KIDNEY TRANSPLANT.
[2019-04-16 00:45] VITALS: BP 148/90
[2019-04-16 00:47] LABS: BASOPHILS 0.6 % (0-2); EOSINOPHILS 3.2 % (0-7); HEMOGLOBIN 10.1 g/dL (12-16); IMMATURE GRANULOCYTES 0.2 % (0-5); MCH 31.1 pg (26.0-34.0); MCHC 32.6 g/dL (31.0-37.0); MCV 95.4 fL (80.0-100.0); MEAN PLATELET VOLUME 10.3 fL (7.4-10.4); MONOCYTES 9.9 % (2-11); NEUTROPHILS 70.1 % (40-80); PLATELET COUNT 120 10x3/uL (130-400); RBC 3.25 10x6/uL (4.00-5.40); RDW 13.1 % (11.5-14.5); WBC 4.6 10x3/uL (4.8-10.8)
--- NOTE | 2019-04-16 00:47 | NUR ---
RT TO BEDSIDE TO DO UPDRAFT, PT STABLE. REPORT GIVEN TO RODOLFO LARA
[2019-04-16 00:54] LABS: APTT 29.6 SECONDS (22.8-39.4); INR 1.25 (0.85-1.17); PROTIME 15.2 SECONDS (11.6-15.0)
[2019-04-16 01:01] LABS: ALBUMIN 3.2 g/dL (3.4-5.0); ALKALINE PHOSPHATASE 125 U/L (46-116); ALT (SGPT) 11 U/L (10-68); CALC OSMOLALITY 284 mosm/kg (275-300); CALCIUM 8.6 mg/dL (8.5-10.1); CARBON DIOXIDE 26.3 mmol/L (21.0-32.0); CHLORIDE - SERUM 102 mmol/L (98-107); CREATININE - SERUM 5.5 mg/dL (0.6-1.3); GLUCOSE 110 mg/dL (74-106); PROTEIN - SERUM 6.1 g/dL (6.4-8.2); SODIUM 140 mmol/L (136-145); UREA NITROGEN 27 mg/dL (7-18); eGFR NON AFRICAN AMERICAN 8 mL/min (90-120)
[2019-04-16 01:11] LABS: CKMB 0.7 U/L (0.0-3.6); CREATINE KINASE 28 UL (21-215)
[2019-04-16 01:13] LABS: PRO BNP 91429 pg/mL (0-125)
[2019-04-16] MEDS ORDERED: XANAX0.25 MG PO (02:53)
[2019-04-16 04:25] VITALS: BP 153/84; BMI 24.2
[2019-04-16 04:30] VITALS: BP 146/79
--- NOTE | 2019-04-16 05:42 | NUR ---
SPOKE TO CARIDAD REGARDING PT CONCERN OF DIALYSIS NEED. PT HAS PULMONARY EDEMA. LEFT UPPER LOBE CLEAR ALL OTHER LOBES DIMINISHED AND TIGHT. 2L O2 WITH DYSPNEA AND SOB. PT ANURIC CARIDAD STATED SHE WILL CALL ADMINISTRATIVE PERSONAL ASSISTANT TO COME IN FOR DIALYSIS. PT HAVING ANXIETY, READ BACK ORDER TO VERIFY XANAX 0.25MG Q6H PRN WILL PLACE ORDER. MED REC AND HISTORY UPDATED. RENAL WILL PUT OTHER MEDICATIONS IN ONCE ARRIVE
--- NOTE | 2019-04-16 07:45 | NUR ---
PT AWOKE FEELING THOUGH SHE WAS UNABLE TO BREATH. BEGAN PANICKING AND YELLING LOUDLY FOR HELP. RAN IN TO FIND PT SITTING HUNCHED OVER IN BED HYPERVENTALATING STATING SHE COULDN'T BREATH. HELPED PT CALM DOWN WHILE GETTING AN 02 OF 98%. PT STATES IT'S NOT THE FIRST TIME SHE'S HAD SUCH EPISODES WHERE SHE WAKES UP FEELING UNABLE TO CATCH HER BREATH WHICH THEN SPIRALS HER INTO A PANIC SITUATION WHERE SHE HYPERVENTILATES. PT CALMED SIGNIFICANTLY AND I ADMINSTERED HER ORDERED PRN XANAX TO FURTHER ASSIST HER. PT WAS PERFECTLY REASONABLE AND ORIENTED ONCE CALMED DOWN. WILL CONTINUE TO MONITOR FOR FURTHER SYMPTOMS. CL IN REACH, SRX2.
[2019-04-16 08:30] VITALS: BP 140/89
[2019-04-16 13:17] VITALS: Ht 167.6 cm; Wt 68.0 kg
--- NOTE | 2019-04-16 15:03 | NUR ---
I have reviewed this patient and I concur with the Shift Assessment completed by the Licensed Practical Nurse today this shift.
[2019-04-16 16:30] VITALS: BP 133/73
--- NOTE | 2019-04-16 18:22 | NUR ---
PT ESCORTED OUT VIA WHEELCHIAR TO MOTHERS CAR. NO COMPLAINTS/CONCERNS .
--- NOTE | 2019-04-17 13:45 | MORECARE ---
CASE MANAGEMENT DISCHARGE SUMMARY PATIENT: ARTHUR JUNG UNIT: [id number] ADM DATE: 04/16/19 AGE: 53 : 61 SEX: F ROOM/BED: D.2178 AUTHOR: LIDA LEPE PHYSICIAN: REFERRING PHYSICIAN: ZOILA ORNELAS MD DATE OF SERVICE: 04/17/19 Discharge Plan Patient Name: ARTHUR JUNG [facility] : 1965 Planned Disposition: Anticipated Discharge Date: Discharge Date: 04/16/2019 Expected LOS: Initial Reviewer: [email or web address] Initial Review Date: 04/16/2019 Generated: 04/17/19 2:45 pm Patient Name: ARTHUR JUNG Page 83478 at 1345 All edits/amendments must be made on the electronic document DICTATION DATE: 04/17/19 1345 CARDIAC REHABILITATION PROGRAM DIRECTOR: SARA 04/17/19 1345 RPT#: [id number] DC DATE:04/16/19 STATUS: DIS IN [facility] [address] [place] [address] END OF REPORT
== END 2019-04-16 18:25 | disposition home or self-care (01) ==
LOC: D.ER 23:44 → D.M2 04-16 01:24 → OBSVTIME 04-16 01:24 → D.M2 04-16 18:25
PROVIDERS: Family Medicine; ADMIT Internal Medicine; ATTEND Internal Medicine
DX: I13.2 Hypertensive heart and chronic kidney disease with heart failure and with stage 5 chronic kidney disease, or end stage renal disease (principal); I50.9 Heart failure, unspecified; N18.6 End stage renal disease; Z99.2 Dependence on renal dialysis; J44.9 Chronic obstructive pulmonary disease, unspecified

== ENCOUNTER 2019-04-18 12:10 | Observation (INO) | payer MEDICARE, BC ==
[~2019-04-18] VITALS: Ht 167.6 cm; Wt 50.0 kg
[2019-04-18 12:45] LABS: BASOPHILS 0.4 % (0-2); EOSINOPHILS 0.9 % (0-7); HEMATOCRIT 32.8 % (36.0-48.0); HEMOGLOBIN 10.9 g/dL (12-16); IMMATURE GRANULOCYTES 0.4 % (0-5); LYMPHOCYTES 9.6 % (15-50); MCH 31.8 pg (26.0-34.0); MCHC 33.2 g/dL (31.0-37.0); MCV 95.6 fL (80.0-100.0); MEAN PLATELET VOLUME 10.8 fL (7.4-10.4); MONOCYTES 10.5 % (2-11); NEUTROPHILS 78.2 % (40-80); PLATELET COUNT 119 10x3/uL (130-400); RBC 3.43 10x6/uL (4.00-5.40); RDW 13.3 % (11.5-14.5); WBC 7.1 10x3/uL (4.8-10.8)
[2019-04-18 13:15] VITALS: BP 174/102
[2019-04-18 13:30] LABS: ALBUMIN 3.6 g/dL (3.4-5.0); ALKALINE PHOSPHATASE 136 U/L (46-116); ALT (SGPT) 8 U/L (10-68); BILIRUBIN - TOTAL 0.98 mg/dL (0.2-1.3); CALC OSMOLALITY 283 mosm/kg (275-300); CALCIUM 8.7 mg/dL (8.5-10.1); CARBON DIOXIDE 24.3 mmol/L (21.0-32.0); CHLORIDE - SERUM 100 mmol/L (98-107); GLUCOSE 117 mg/dL (74-106); POTASSIUM - SERUM 4.5 mmol/L (3.5-5.1); PROTEIN - SERUM 6.2 g/dL (6.4-8.2); SODIUM 138 mmol/L (136-145); UREA NITROGEN 32 mg/dL (7-18); eGFR NON AFRICAN AMERICAN 6 mL/min (90-120)
[2019-04-18 13:43] LABS: CKMB 0.6 U/L (0.0-3.6); CREATINE KINASE 35 UL (21-215); PRO BNP 91433 pg/mL (0-125); TROPONIN-I 0.033 ng/mL (0.000-0.060)
[2019-04-18 16:02] VITALS: BP 143/79
[2019-04-18] MEDS ORDERED: FLUTICASONE PRO16 GM NASAL (17:26)
[2019-04-18] MEDS ORDERED: XANAX0.25 MG PO (17:26)
[2019-04-18 17:33] VITALS: BP 139/89; Ht 167.6 cm; Wt 50.0 kg
--- NOTE | 2019-04-18 17:52 | MORECARE ---
CASE MANAGEMENT DISCHARGE SUMMARY PATIENT: ARTHUR JUNG UNIT: [id number] ADM DATE: 04/18/19 AGE: 53 : 61 SEX: F ROOM/BED: D.9693 AUTHOR: LIDA LEPE PHYSICIAN: REFERRING PHYSICIAN: TAYE MACIAS MD DATE OF SERVICE: 04/18/19 Discharge Plan Patient Name: ARTHUR JUNG [facility] [facility] 1965 Planned Disposition: Home Anticipated Discharge Date: 04/21/19 Discharge Date: Expected LOS: 3 Initial Reviewer: [email or web address] Initial Review Date: 04/18/2019 Generated: 04/18/19 6:52 pm Patient Name: ARTHUR JUNG Page 47332 at 1752 All edits/amendments must be made on the electronic document DICTATION DATE: 04/18/191750 GANG SAW OPERATOR: SARA 04/18/191750 RPT#: [id number] DC DATE: STATUS: ADM IN [facility] [address] [place] [address] END OF REPORT
--- NOTE | 2019-04-18 17:58 | MORECARE ---
CASE MANAGEMENT DISCHARGE SUMMARY PATIENT: ARTHUR JUNG UNIT: [id number] ADM DATE: 04/18/19 AGE: 53 : 61 SEX: F ROOM/BED: D.0259 AUTHOR: LIDA LEPE PHYSICIAN: REFERRING PHYSICIAN: TAYE RAMOS MD DATE OF SERVICE: 04/18/19 Discharge Plan Patient Name: ARTHUR JUNG Facility: [facility]:[place] : 1965 Planned Disposition: Home Anticipated Discharge Date: 04/21/19 Discharge Date: Expected LOS: 3 Initial Reviewer: [email or web address] Initial Review Date: 04/18/2019 Generated: 04/18/19 6:58 pm Comments DCP- Discharge Planning Updated by [email or web address]: Deisi Wick on 04/18/19 4:[address] Patient Name: ARTHUR JUNG Admission Status: ER Accout number: [id number] Admission Date: 04-18-2019 : 1965 Admission Diagnosis: Attending: Taye Ramos Current LOS: 1 Anticipated DC Date: 04-21-2019 Planned Disposition: Home alone. Denied dc needs. Primary Insurance: MEDICARE A & B Discharge Planning Comments: CM met with patient to complete initial dc planning assessment. CM educated patient on the CM role and verbal consent given by patient to complete assessment. CM verified patient's address, phone number, and emergency contact phone numbers. Patient lives at home alone and reports she is independent in her care. [facility]. At discharge patient plans to return home alone and feels this is a safe discharge. CM discussed availability of home health, rehab services, and medical equipment. Patient denied known discharge needs at this time. Patient reports [facility] will transport her home at time of discharge. CM will continue to follow and will assist as needed with dc plans/needs. Butter Printer: Deisi iWck RN, [facility] DCPIA - Discharge Planning Initial Assessment Updated by [email or web address]: Deisi Wick on 04/18/19 5:55 pm * Is the patient Alert and Oriented? Yes * How many steps to enter\exit or inside your home? none * PCP Dr. Joan De Los Santos * Pharmacy [facility] * Preadmission Environment Home Alone * ADLs Independent * Equipment Cane Nebulizer Oxygen Rolling Walker * Other Equipment Home O2 with portability. She couldn't remember the name of her O2 company. No tag on her portable bottle in her ER Room. * List name and contact numbers for known caregivers / representatives who currently or will assist patient after discharge: Judie Bear - mother - [phone] * Verbal permission to speak to the caregivers and representatives has been obtained from the patient. Yes * Community resources currently utilized None * Additional services required to return to the preadmission environment? No * Can the patient safely return to the preadmission environment? Yes * Has this patient been hospitalized within the prior 30 days at any hospital? Yes Last DP export: 04/18/19 4:52 p Patient Name: ARTHUR JUNG Page 79420 at 1758 All edits/amendments must be made on the electronic document DICTATION DATE: 04/18/191757 HOUSEKEEPING DIRECTOR: SARA 04/18/191757 RPT#: [id number] DC DATE: STATUS: ADM IN [facility] [address] [place] [address] END OF REPORT
--- NOTE | 2019-04-18 18:11 | MORECARE ---
CASE MANAGEMENT DISCHARGE SUMMARY PATIENT: ARTHUR JUNG UNIT: [id number] ADM DATE: 04/18/19 AGE: 53 : 61 SEX: F ROOM/BED: D.7754 AUTHOR: LIDA LEPE PHYSICIAN: REFERRING PHYSICIAN: TAYE RAMOS MD DATE OF SERVICE: 04/18/19 Discharge Plan Patient Name: ARTHUR JUNG Facility: [facility]:[place] : 1965 Planned Disposition: Home Anticipated Discharge Date: 04/21/19 Discharge Date: Expected LOS: 3 Initial Reviewer: [email or web address] Initial Review Date: 04/18/2019 Generated: 04/18/19 7:11 pm Comments DCP- Discharge Planning Updated by [email or web address]: Deisi Wick on 04/18/19 5:[address] Patient Name: ARTHUR JUNG Admission Status: ER Accout number: [id number] Admission Date: 04-18-2019 : 1965 Admission Diagnosis: Attending: Taye Ramos Current LOS: 1 Anticipated DC Date: 04-21-2019 Planned Disposition: Home alone. Denied dc needs. Primary Insurance: MEDICARE A & B Discharge Planning Comments: CM met with patient to complete initial dc planning assessment. CM educated patient on the CM role and verbal consent given by patient to complete assessment. CM verified patient's address, phone number, and emergency contact phone numbers. Patient lives at home alone and reports she is independent in her care. [facility] goes to [facility] for dialysis. At discharge patient plans to return home alone and feels this is a safe discharge. CM discussed availability of home health, rehab services, and medical equipment. Patient denied known discharge needs at this time. Patient reports [facility] will transport her home at time of discharge. CM will continue to follow and will assist as needed with dc plans/needs. Hasher Machine Operator: Deisi Wick RN, CCM Appended by Deisi Wick on 04/18/2019 18:08 CDT: Correction: The patient drives herself to and from dialysis and does not us [facility] for transportation. Her parents or her sister will transport her home at time of discharge. Deisi Wick RN, CCM DCPIA - Discharge Planning Initial Assessment Updated by [email or web address]: Deisi Wick on 04/18/19 5:55 pm * Is the patient Alert and Oriented? Yes * How many steps to enter\exit or inside your home? none * PCP Dr. Joan De Los Santos * [facility]acy [facility] * Preadmission Environment Home Alone * ADLs Independent * Equipment Cane Nebulizer Oxygen Rolling Walker * Other Equipment Home O2 with portability. She couldn't remember the name of her O2 company. No tag on her portable bottle in her ER Room. * List name and contact numbers for known caregivers / representatives who currently or will assist patient after discharge: Judie Bear - [facility] - [phone] * Verbal permission to speak to the caregivers and representatives has been obtained from the patient. Yes * Community resources currently utilized None * Additional services required to return to the preadmission environment? No * Can the patient safely return to the preadmission environment? Yes * Has this patient been hospitalized within the prior 30 days at any hospital? Yes Last DP export: 04/18/19 4:58 p Patient Name: ARTHUR JUNG Page 99281 at 1811 All edits/amendments must be made on the electronic document DICTATION DATE: 04/18/191810 TAPE EDITOR: SARA 04/18/191810 RPT#: [id number] DC DATE: STATUS: ADM IN [facility] [address] [place] [address] END OF REPORT
--- NOTE | 2019-04-19 08:54 | MORECARE ---
CASE MANAGEMENT DISCHARGE SUMMARY PATIENT: ARTHUR JUNG UNIT: [id number] ADM DATE: 04/18/19 AGE: 53 : 61 SEX: F ROOM/BED: D.2305 AUTHOR: LIDA LEPE PHYSICIAN: REFERRING PHYSICIAN: TAYE RAMOS MD DATE OF SERVICE: 04/19/19 Discharge Plan Patient Name: ARTHUR JUNG Facility: [facility]:[place] : 1965 Planned Disposition: Home Anticipated Discharge Date: 04/21/19 Discharge Date: 04/18/2019 Expected LOS: 3 Initial Reviewer: [email or web address] Initial Review Date: 04/18/2019 Generated: 04/19/19 9:54 am Comments DCP- Discharge Planning Updated by [email or web address]: Deisi Wick on 04/18/19 5:[address] Patient Name: ARTHUR JUNG Admission Status: ER Accout number: [id number] Admission Date: 04-18-2019 : 1965 Admission Diagnosis: Attending: Taye Ramos Current LOS: 1 Anticipated DC Date: 04-21-2019 Planned Disposition: Home alone. Denied dc needs. Primary Insurance: MEDICARE A & B Discharge Planning Comments: CM met with patient to complete initial dc planning assessment. CM educated patient on the CM role and verbal consent given by patient to complete assessment. CM verified patient's address, phone number, and emergency contact phone numbers. Patient lives at home alone and reports she is independent in her care. She goes to for dialysis. At discharge patient plans to return home alone and feels this is a safe discharge. CM discussed availability of home health, rehab services, and medical equipment. Patient denied known discharge needs at this time. Patient reports [facility] will transport her home at time of discharge. CM will continue to follow and will assist as needed with dc plans/needs. Call Taker: Deisi Wick RN, CCM Appended by Deisi Wick on 04/18/2019 18:08 CDT: Correction: The patient drives herself to and from dialysis and does not us [facility] for transportation. Her parents or her sister will transport her home at time of discharge. Deisi Wick RN, CCM DCPIA - Discharge Planning Initial Assessment Updated by [email or web address]: Deisi Wick on 04/18/19 5:55 pm * Is the patient Alert and Oriented? Yes * How many steps to enter\exit or inside your home? none * PCP Dr. Joan De Los Santos * [facility]acy [facility] * Preadmission Environment Home Alone * ADLs Independent * Equipment Cane Nebulizer Oxygen Rolling Walker * Other Equipment Home O2 with portability. She couldn't remember the name of her O2 company. No tag on her portable bottle in her ER Room. * List name and contact numbers for known caregivers / representatives who currently or will assist patient after discharge: Judie Bear - [facility] - [phone] * Verbal permission to speak to the caregivers and representatives has been obtained from the patient. Yes * Community resources currently utilized None * Additional services required to return to the preadmission environment? No * Can the patient safely return to the preadmission environment? Yes * Has this patient been hospitalized within the prior 30 days at any hospital? Yes Last DP export: 04/18/19 5:11 p Patient Name: ARTHUR JUNG Page 79499 at 0854 All edits/amendments must be made on the electronic document DICTATION DATE: 04/19/19853 JUICE SCALEMAN: SARA 04/19/19 0854 RPT#: [id number] DC DATE:04/18/19 STATUS: DIS IN [facility] [address] [place] [address] END OF REPORT
== END 2019-04-18 23:05 | disposition home or self-care (01) ==
LOC: D.ER 12:10 → D.M2 16:25 → OBSVTIME 20:30 → D.M2 23:05
PROVIDERS: Family Medicine; ADMIT Internal Medicine Nephrology; ATTEND Internal Medicine Nephrology
DX: I13.2 Hypertensive heart and chronic kidney disease with heart failure and with stage 5 chronic kidney disease, or end stage renal disease (principal); N18.6 End stage renal disease; I50.9 Heart failure, unspecified; I25.10 Atherosclerotic heart disease of native coronary artery without angina pectoris; J44.9 Chronic obstructive pulmonary disease, unspecified; E83.39 Other disorders of phosphorus metabolism; D63.1 Anemia in chronic kidney disease

== ENCOUNTER 2019-04-23 20:11 | Emergency (ER) | payer MEDICARE, BC ==
[~2019-04-23] VITALS: Ht 167.6 cm; Wt 64.5 kg
[2019-04-23 20:16] VITALS: Ht 167.6 cm; Wt 64.5 kg
[2019-04-23 20:47] LABS: BASOPHILS 0.2 % (0-2); EOSINOPHILS 2.2 % (0-7); HEMATOCRIT 31.7 % (36.0-48.0); HEMOGLOBIN 10.4 g/dL (12-16); IMMATURE GRANULOCYTES 0.4 % (0-5); LYMPHOCYTES 6.6 % (15-50); MCH 31.4 pg (26.0-34.0); MCHC 32.8 g/dL (31.0-37.0); MCV 95.8 fL (80.0-100.0); MEAN PLATELET VOLUME 10.1 fL (7.4-10.4); MONOCYTES 6.6 % (2-11); PLATELET COUNT 110 10x3/uL (130-400); RBC 3.31 10x6/uL (4.00-5.40); RDW 13.7 % (11.5-14.5); WBC 4.5 10x3/uL (4.8-10.8)
[2019-04-23 21:00] LABS: ALBUMIN 3.4 g/dL (3.4-5.0); ANION GAP 9.2 mmol/L (8-16); BILIRUBIN - TOTAL 0.71 mg/dL (0.2-1.3); CALCIUM 8.6 mg/dL (8.5-10.1); CARBON DIOXIDE 27.5 mmol/L (21.0-32.0); CREATININE - SERUM 3.6 mg/dL (0.6-1.3); POTASSIUM - SERUM 3.7 mmol/L (3.5-5.1); PROTEIN - SERUM 6.4 g/dL (6.4-8.2)
[2019-04-23 21:04] LABS: TROPONIN-I 0.016 ng/mL (0.000-0.060)
[2019-04-23] MEDS ORDERED: ZOFRAN ODT4 MG/UDTAB PO (22:24)
[2019-04-23 23:08] VITALS: BP 149/82
== END 2019-04-23 23:09 | disposition home or self-care (01) ==
LOC: D.ER 20:11
PROVIDERS: Family Medicine
DX: R10.11 Right upper quadrant pain (principal); I12.0 Hypertensive chronic kidney disease with stage 5 chronic kidney disease or end stage renal disease; N18.6 End stage renal disease; Z99.2 Dependence on renal dialysis; R50.9 Fever, unspecified; S09.90XA Unspecified injury of head, initial encounter; X58.XXXA Exposure to other specified factors, initial encounter; Y93.89 Activity, other specified; Y92.89 Other specified places as the place of occurrence of the external cause; R51 Headache; R11.2 Nausea with vomiting, unspecified

== ENCOUNTER → 2019-05-21 10:00 | Outpatient (CLI) | payer MEDICARE, BC ==
[2019-04-23 20:16] VITALS: BMI 22.9
[~2019-05-21 10:00] MED LIST changes: +ZOFRAN ODT4 MG/UDTAB PO
== END | disposition home or self-care (01) ==
LOC: D.MAMMO 10:00
PROVIDERS: ATTEND Internal Medicine Nephrology
DX: Z12.31 Encounter for screening mammogram for malignant neoplasm of breast (principal)

== ENCOUNTER 2019-10-07 21:12 | Inpatient (IN) | payer MEDICARE, BC ==
[~2019-10-07] VITALS: Ht 167.6 cm; Wt 63.5 kg
[2019-10-07 22:10] LABS: BASOPHILS 0.1 % (0-2); EOSINOPHILS 2.8 % (0-7); HEMATOCRIT 35.1 % (36.0-48.0); IMMATURE GRANULOCYTES 0.1 % (0-5); LYMPHOCYTES 9.7 % (15-50); MCHC 31.3 g/dL (31.0-37.0); MEAN PLATELET VOLUME 10.5 fL (7.4-10.4); MONOCYTES 7.2 % (2-11); NEUTROPHILS 80.1 % (40-80); PLATELET COUNT 97 10x3/uL (130-400); RBC 3.44 10x6/uL (4.00-5.40); WBC 6.7 10x3/uL (4.8-10.8)
[2019-10-07 22:17] LABS: APTT 32.6 SECONDS (22.8-39.4); INR 1.29 (0.85-1.17); PROTIME 15.5 SECONDS (11.6-15.0)
[2019-10-07 22:23] LABS: CALC OSMOLALITY 289 mosm/kg (275-300); CALCIUM 7.3 mg/dL (8.5-10.1); CARBON DIOXIDE 26.9 mmol/L (21.0-32.0); CHLORIDE - SERUM 102 mmol/L (98-107); CREATININE - SERUM 6.2 mg/dL (0.6-1.3); GLUCOSE 110 mg/dL (74-106); POTASSIUM - SERUM 5.6 mmol/L (3.5-5.1); SODIUM 139 mmol/L (136-145); UREA NITROGEN 44 mg/dL (7-18); eGFR NON AFRICAN AMERICAN 7 mL/min (90-120)
[2019-10-07 22:35] LABS: PLATELET ESTIMATE DECREASED
[2019-10-07 22:41] LABS: ALBUMIN 3.4 g/dL (3.4-5.0); ALKALINE PHOSPHATASE 122 U/L (46-116); ALT (SGPT) 12 U/L (10-68); BILIRUBIN - TOTAL 0.49 mg/dL (0.2-1.3); CKMB 1.9 U/L (0.0-3.6); CREATINE KINASE 46 UL (21-215); PROTEIN - SERUM 6.3 g/dL (6.4-8.2); TROPONIN-I 0.034 ng/mL (0.000-0.060)
[2019-10-08 01:47] VITALS: BP 126/29; BMI 22.6
--- NOTE | 2019-10-08 02:00 | NUR ---
RECIEVED PT FROM [facility], PT ARRIVED BY WHEELCHAIR. PT IS AAOX4, VSS, NO S/S OF RT DISTRESS, RR EVEN AND UNLABORED. O2 @ 2L NC, SPO2 @ 97. PT C/O RASH WITH GENERALIZED SCAB/SORE, AND ALSO C/O HEADACHE A 08/03. INITIAL ASSESSMENT COMPLETED. HAVE PAGED OBGYN NURSE EDDIE, AWAITING A CALL BACK. FISTULA IN L.ARM INACT +BRUIT AND THRILL. PT DENIES ANY FURTHER NEEDS AT THIS TIME. WILL CPOC. CL WITHIN REACH, BED IN LOW, SR UP X2.
--- NOTE | 2019-10-08 03:00 | NUR ---
SECOND PAGE MADE TO KINDERGARTEN TEACHER ASSISTANT HARMONY MORGAN.
--- NOTE | 2019-10-08 03:08 | NUR ---
I have reviewed this patient and I concur with the Shift Assessment completed by the Licensed Practical Nurse today this shift.
[2019-10-08 04:45] VITALS: BP 131/68
[2019-10-08 07:50] VITALS: BP 125/73
--- NOTE | 2019-10-08 07:57 | NUR ---
REPORT RECEIVED. WILL CONTINUE WITH POC. PT CURRENTLY LYING SUPINE. CALL LIGHT W/I REACH. PT IS AAO AND UP AD BRAVO. RR EVEN AND UNLABORED ON 2L 02. R.HAND PIV IS SALINE LOCKED. PT DENIES ANY NEEDS AT THIS TIME. NO S/S OF DISTRESS NOTED. WILL CTM.
[2019-10-08 10:47] VITALS: BP 123/68
--- NOTE | 2019-10-08 11:43 | NUR ---
I have reviewed this patient and I concur with the Shift Assessment completed by the Licensed Practical Nurse today this shift.
[2019-10-08 12:27] VITALS: Ht 167.6 cm; Wt 63.5 kg
[2019-10-08 15:14] VITALS: BP 143/75
--- NOTE | 2019-10-08 17:49 | NUR ---
PT TRANSFERED TO DIALYSIS. WILL CTM.
--- NOTE | 2019-10-09 04:03 | NUR ---
I have reviewed this patient and I concur with the Shift Assessment completed by the Licensed Practical Nurse today this shift.
[2019-10-09 04:18] VITALS: BP 136/75
[2019-10-09 06:00] LABS: ALBUMIN 3.2 g/dL (3.4-5.0); ANION GAP 13.2 mmol/L (8-16); BILIRUBIN - TOTAL 0.39 mg/dL (0.2-1.3); CALCIUM 8.1 mg/dL (8.5-10.1); CREATININE - SERUM 5.1 mg/dL (0.6-1.3); POTASSIUM - SERUM 5.2 mmol/L (3.5-5.1); PROTEIN - SERUM 6.2 g/dL (6.4-8.2)
--- NOTE | 2019-10-09 06:16 | NUR ---
PT SOB AND COUGHING AT THIS TIME. 2100 BREATHING TREATMENT GIVEN. O2-96%.
[2019-10-09 06:56] LABS: BASOPHILS 0.2 % (0-2); EOSINOPHILS 4.5 % (0-7); HEMATOCRIT 35.6 % (36.0-48.0); HEMOGLOBIN 11.3 g/dL (12-16); IMMATURE GRANULOCYTES 0.2 % (0-5); LYMPHOCYTES 15.5 % (15-50); MCH 32.2 pg (26.0-34.0); MCHC 31.7 g/dL (31.0-37.0); MCV 101.4 fL (80.0-100.0); MEAN PLATELET VOLUME 11.3 fL (7.4-10.4); MONOCYTES 16.1 % (2-11); NEUTROPHILS 63.5 % (40-80); PLATELET COUNT 100 10x3/uL (130-400); RBC 3.51 10x6/uL (4.00-5.40)
[2019-10-09 07:00] LABS: WBC 4.9 10x3/uL (4.8-10.8)
--- NOTE | 2019-10-09 07:30 | NUR ---
RESTING QUIETLY POSITIONED ON SIDE WITH RESP EVEN AND UNLABORED. BED IN LOW POSITION AND CALL LIGHT IN REACH.
[2019-10-09 09:10] VITALS: BP 162/85
--- NOTE | 2019-10-09 13:35 | NUR ---
DISCHARGE INSTRUCTIONS REVIEWED WITH PT AND VERBALIZES UNDERSTANDING WITH NO QUESTIONS. SL REMOVED WITH CATH TIP INTACT. LEFT FLOOR VIA W/C WITH ALL PERSONAL BELONGINGS AND LEFT FACILITY VIA PRIVATE VEHICLE WITH HER SISTER.
--- NOTE | 2019-10-09 17:15 | NUR ---
REVIEWED THE ASSESSMENT ENTERED BY TOBACCO PRIMER MACHINE OPERATOR ON DUTY AND I CONCUR.
--- NOTE | 2019-10-11 09:12 | MORECARE ---
CASE MANAGEMENT DISCHARGE SUMMARY PATIENT: ARTHUR JUNG UNIT: [id number] ADM DATE: 10/08/19 AGE: 54 : 61 SEX: F ROOM/BED: D.2106 AUTHOR: LIDA LEPE PHYSICIAN: REFERRING PHYSICIAN: ARACELI QUINTANA MD DATE OF SERVICE: 10/11/19 Discharge Plan Patient Name: ARTHUR JUNG [facility] [facility] 1965 Planned Disposition: Home Anticipated Discharge Date: 10/09/19 Discharge Date: 10/09/2019 Expected LOS: 1 Initial Reviewer: [email or web address] Initial Review Date: 10/11/2019 Generated: 10/11/19 10:12 am Patient Name: ARTHUR JUNG Page 49403 at 0912 All edits/amendments must be made on the electronic document DICTATION DATE: 10/11/19911 FAMILY SERVICES WORKER: SARA 10/11/19911 RPT#: [id number] DC DATE:10/09/19 STATUS: DIS IN [facility] [address] [place] [address] END OF REPORT
== END 2019-10-09 14:50 | disposition home or self-care (01) | DRG 291 ==
LOC: D.ER 21:12 → D.M2 10-08 00:32
PROVIDERS: Family Medicine; ADMIT Internal Medicine Nephrology; ATTEND Internal Medicine Nephrology
PROC: 5A1D70Z Performance of Urinary Filtration, Intermittent, Less than 6 Hours Per Day (ICD-10-PCS; principal; 2019-10-08)
DX: I13.2 Hypertensive heart and chronic kidney disease with heart failure and with stage 5 chronic kidney disease, or end stage renal disease (principal); N18.6 End stage renal disease; I50.9 Heart failure, unspecified; Z99.2 Dependence on renal dialysis; E87.5 Hyperkalemia; J44.9 Chronic obstructive pulmonary disease, unspecified; R06.89 Other abnormalities of breathing; R50.9 Fever, unspecified; K21.9 Gastro-esophageal reflux disease without esophagitis; I25.10 Atherosclerotic heart disease of native coronary artery without angina pectoris; Z87.891 Personal history of nicotine dependence

== ENCOUNTER 2019-10-18 13:54 | Emergency (ER) | payer MEDICARE, BC ==
[~2019-10-18] VITALS: Ht 167.6 cm; Wt 63.6 kg
[2019-10-18 13:59] VITALS: BP 150/87; Ht 167.6 cm; Wt 63.6 kg
[2019-10-18] MEDS ORDERED: KEFLEX500 MG PO (16:19)
== END 2019-10-18 16:50 | disposition home or self-care (01) ==
LOC: D.ER 13:54
DX: L60.0 Ingrowing nail (principal); J44.9 Chronic obstructive pulmonary disease, unspecified; I11.0 Hypertensive heart disease with heart failure; I50.9 Heart failure, unspecified

== ENCOUNTER 2019-10-29 05:52 | Emergency (ER) | payer MEDICARE, BC ==
[~2019-10-29] VITALS: Ht 167.6 cm; Wt 56.8 kg
[~2019-10-29 05:52] MED LIST changes: +KEFLEX500 MG PO
[2019-10-29 05:56] VITALS: Ht 167.6 cm; Wt 56.8 kg
[2019-10-29 08:19] VITALS: BP 168/89
== END 2019-10-29 08:25 | disposition home or self-care (01) ==
LOC: D.ER 05:52
DX: S70.11XA Contusion of right thigh, initial encounter (principal); W19.XXXA Unspecified fall, initial encounter; Y93.9 Activity, unspecified; Y92.9 Unspecified place or not applicable; N18.6 End stage renal disease; S39.012A Strain of muscle, fascia and tendon of lower back, initial encounter

== ENCOUNTER 2019-11-18 18:25 | Emergency (ER) | payer MEDICARE, BC ==
[~2019-11-18] VITALS: Ht 167.6 cm; Wt 65.8 kg
[2019-11-18 18:41] VITALS: Ht 167.6 cm; Wt 65.8 kg
[2019-11-18 21:13] VITALS: BP 153/85
== END 2019-11-18 21:13 | disposition home or self-care (01) ==
LOC: D.ER 18:25
DX: S80.01XA Contusion of right knee, initial encounter (principal); W19.XXXA Unspecified fall, initial encounter; Y93.9 Activity, unspecified; Y92.9 Unspecified place or not applicable; N18.6 End stage renal disease; Z99.2 Dependence on renal dialysis

== ENCOUNTER 2019-12-01 15:08 | Inpatient (IN) | payer MEDICARE, BC ==
[~2019-12-01] VITALS: Ht 167.6 cm; Wt 66.4 kg
--- NOTE | ~2019-12-01 | CN ---
PATIENT NAME:ARTHUR JUNG MEDICAL RECORD: [id number] : [birth year] LOCATION:D.Rao D.2101 ADMIT DATE: 12/01/19 ACCOUNT: [id number] CONSULTING PHYSICIAN: RUBY CAR MD REFERRING PHYSICIAN: TAYE MACIAS MD DATE OF CONSULTATION: 12/03/2019 DIAGNOSES: 1. Angina class III. 2. Recurrent flash pulmonary edema. 3. Pulmonary hypertension. 4. End-stage renal failure, dialysis. 5. Systemic hypertension. 6. Smoking. 7. Chronic obstructive pulmonary disease. 8. Hyperlipidemia. HISTORY OF PRESENT ILLNESS: Mrs. Jung presents with chest discomfort and recurrent flash pulmonary edema. It appears that she has had multiple episodes of this over the past month and that is worsening. She gets a chest pressure, chest heaviness, then becomes acutely very short of breath and was found to be in pulmonary edema. She does not make urine any longer, on dialysis they pull off the fluid as best they can, limited by her low blood pressure. She once again presents with this. She has no history of ischemic heart disease, but has only had a right heart catheterization has not had a left heart catheterization to see if she has any coronary artery disease. She does have a family history of premature coronary disease as well. She has been on aspirin therapy, but continues to have the symptomatology. She as well has been on beta blockade with Coreg. Currently, her blood pressure is high as is her heart rate. PHYSICAL EXAMINATION: CONSTITUTIONAL/GENERAL APPEARANCE: Well nourished, well developed, appears stated age. EYES: Lids and conjunctivae noninjected. No discharge. No pallor. ENT: Lips within normal limit. No cyanosis. No pallor. NECK: Carotid arteries, bilateral normal upstroke. No bruits. No thrills. No jugular venous pressure or distention. CERVICAL LYMPH NODES: Nontender. Nonenlarged. THYROID: Not enlarged. No nodules. CARDIOVASCULAR: Precordial exam, nondisplaced. No heaves or pericardial thrills. Rate and rhythm, regular. Heart sounds, normal S1, normal S2. No S3, no gallop, no rub. Systolic murmur, not heard. Diastolic murmur, not heard. RESPIRATORY: Respiratory effort, unlabored. Normal curvature. No thoracic deformity. No chest wall tenderness. Percussion, resonant. Auscultation, clear. No wheezes, no rales, no rhonchi. ABDOMEN: Soft, nondistended, nontender. No abdominal pain, no vomiting and normal appetite. MUSCULOSKELETAL: No joint tenderness, normal gait, normal tone. SKIN: Warm and dry. OVERALL IMPRESSION: Episodes of chest pain compatible with angina with flash pulmonary edema. It does sound that it could possibly be ischemic in nature. We will optimize her medical therapy by increasing her carvedilol and adding a calcium channel kalyan. Repeat the echocardiogram to see if her ejection fraction is still normal and/or if she has any new wall motion abnormalities. CONSULT REPORT [id number] ARTHUR JUNG If she continues to have symptoms despite improved medical therapy, would consider coronary angiography. TRANSINT:[id number] Voice Confirmation ID: [id number] DOCUMENT ID: [id number] RUBY CAR MD CC: [id number] DICTATION DATE: 12/03/19820 FLIGHT KITCHEN MANAGER: 12/03/19 1112 ADM IN [facility] [address] [place] [id number]
--- NOTE | ~2019-12-01 | OP ---
PATIENT NAME: ARTHUR JUNG MEDICAL RECORD: [id number] :[birth year] LOCATION:D.M2 D.2101 ADMISSION DATE:12/01/19 SURGEON: RUBY CAR MD DATE OF OPERATION: 12/03/2019 PROCEDURES: 1. Left heart catheterization. 2. Selective coronary angiography. 3. Left ventriculogram. INDICATION: Angina, pulmonary edema. DESCRIPTION OF PROCEDURE: After informed consent was obtained and after a detailed description of the risks, benefits as well as alternative therapies, the patient elected to proceed with angiogram and heart catheterization. The right femoral area was prepped and draped in normal sterile fashion. Right femoral artery was cannulated via modified Seldinger technique with placement of 5-Serbian sheath. All catheters exchanged through this sheath. FINDINGS: Left ventriculogram was performed in a standard 30-degree FINCH view, reveals preserved cardiac wall motion, ejection fraction 50% to 55%. SELECTIVE CORONARY ANGIOGRAPHY: Left main, left anterior descending, left circumflex, and right coronary artery are all smooth-walled vessels with no angiographic evidence of coronary artery disease. OVERALL IMPRESSION: 1. No angiographic evidence of coronary artery disease. 2. Normal left heart pressures. 3. Normal left ventricular systolic function. Chest pain is in etiology. No further cardiac workup needs to be ascertained. TRANSINT:[id number] Voice Confirmation ID: [id number] DOCUMENT ID: [id number] RUBY CAR MD CC: [id number] DICTATION DATE: 12/03/19 0949 COLOR BUFFER: 12/03/19 1325 ADM IN [facility] [address] [place] [address]
--- NOTE | ~2019-12-01 | HEMODYNAMI ---
PATIENT:ARTHUR JUNG MEDICAL RECORD: [id number] : 61 [facility] AD[facility]ION DATE: 12/01/19 Generatedon:12/03/20199:49 Patient name: RATHUR JUNG Patient #: [id number] SSN : [id number] : 1965 Date of study: 12/03/2019 Page: Of Hemodynamic Procedure Report Patient Data Patient Demographics Procedure consent was obtained First Name: ARTHUR Gender: Female Last Name: FABIANA : 1965 Middle Initial: R Age: 54 year(s) Patient #: [id number] Race: SSN: [id number] Additional ID: [id number] Contact details Address: [address] [place] [address] State: [place] City: [place] Zip code: [address] Past Medical History Allergies Allergen Reaction Date Comments Reported Aspirin 04/08/2019 Demerol 04/08/2019 Penicillins 04/08/2019 Other allergy 12/03/2019 FLUOXETINE HCL(FROM PROZAC), mEPERIDINE HCL (FROM DEMORAL) SEE LIST Admission Admission Data Admission Date: 12/01/2019 Admission Time: 20:38 Arrival Date: 12/03/2019 Arrival Time: 0:00 Admit Source: Other Insurance Payor: Medicare Room #: D.2101 [facility] #: [id number] Height (in.): 66 BSA: 1.76 (m2) Height (cm.): 167.64 BMI: 23.89 (kg/m2) Weight (lbs.): 148 Weight (kg.): 67.13 Lab Results Lab Result Date: 12/03/2019 Lab Result Time: 0:00 Biochemistry Name Units Result Min Max BUN mg/dl 18 --(---*)-- 7 18 CK-MB ng/ml 1.3 --(-*--)-- 0 3.6 Creatinine mg/dl 3.4 --(----)-* 0.6 1.3 Troponin l ng/ml 0.017 --(-*--)-- 0 0.06 CBC Name Units Result Min Max Hematocrit % 35 *-(----)-- 42 54 Hemoglobin g/dl 11.4 *-(----)-- 13.5 17.5 Procedure Procedure Types Cath Procedure Diagnostic Procedure [facility] w/Coronaries Procedure Description Procedure Date Procedure Date: 12/03/2019 Procedure Start Time: 9:40 Procedure End Time: 9:46 Procedure Staff Name Function Denny Monroe MD Performing Physician Jairo Buitrago RT Monitor Milton Moyer RN Nurse Alis Hollingsworth RT Scrub Procedure Data Cath Procedure Fluoroscopy Diagnostic fluoroscopy Total fluoroscopy Time: 1 time: 1 min min Diagnostic fluoroscopy Total fluoroscopy dose: dose: 136.37 mGy 136.37 mGy Contrast Material Contrast Material Type Amount (ml) Isovue 300 39 Entry Location Entry Primary Successful Side Size Upsize Upsize Entry Closure Succes sful Closure Location (Fr) 1 (Fr) 2 (Fr) Remarks Device Remarks Femoral Right 5 Fr Exoseal artery Estimated blood loss: 10 ml Diagnostic catheters Device Type Used For End Catheter Placement MULTIPACK Pigtail 5 Fr Procedure catheter MULTIPACK JL 4.0 5Fr Procedure catheter MULTIPACK 3DRC 5Fr Procedure catheter Procedure Complications No complications Procedure Medications Medication Administration Route Dosage 0.9% NaCl I.V. 10 ml/hr Oxygen etCO2 Nasal cannula 2 l/min Heparin Flush Bag added to field 2 bags (1000units/500ml NS) Lidocaine 2% added to field 20 Versed I.V. 2 mg Fentanyl I.V. 100 mcg Versed I.V. 0.5 mg Hemodynamics Rest BSA: 1.76 (m2) O2 Consumption: Estimated: 189.72 (ml/min) O2 Consumption indexed : Estimated:107.8 (ml/min/m) Heart Rate: 101 (bpm) Pressure Samples Time Site Value (mmHg) Purpose Heart Use Rate(bpm) 9:42 AO 143/87(112) Snapshot 94 Snapshots Pre Cath Intra NCS Post Cath Vital Signs Time Heart Resp SPO2 etCO2 NIBP (mmHg) Rhythm Pain Sedation Rate (ipm) (%) (mmHg) Status Level (bpm) 9:26:44 102 20 98 27.7 158/106(135) NSR 0 (11) 10(A) , No pain 9:30:51 95 22 94 31.5 160/103(135) NSR 0 (11) 10(A) , No pain 9:34:59 92 17 93 0 161/101(127) NSR 0 (11) 10(A) , No pain 9:39:07 95 17 95 21.7 160/93(129) NSR 0 (11) 10(A) , No pain 9:43:15 93 17 95 15 154/98(135) NSR 0 (11) 9(A) , No pain Medications Time Medication Route Dose Verified Delivered Reason Notes Effe ctiveness by by 9:25:29 0.9% NaCl I.V. 10 Milton Milton Per ml/hr João Moyer physician RN RN 9:25:39 Oxygen etCO2 2 Milton Milton for low 02 Nasal l/min Lorigan Lorigan sats cannula RN RN 9:25:49 Heparin Flush added 2 Milton Milton used for Bag to bags Lorigan Lorigan procedure (1000units/500ml field RN RN NS) 9:26:01 Lidocaine 2% added 20ml Milton Milton for local to vial Lorigan Lorigan anesthetic field RN RN 9:40:29 Versed I.V. 2 mg Milton Milton for Lorigan Lorigan sedation RN RN 9:40:38 Fentanyl I.V. 100 Milton Milton for mcg Lorigan Lorigan sedation RN RN 9:41:51 Versed I.V. 0.5 Milton Milton for mg Lorigan Lorigan sedation RN die baker Log Time Note 9:02:06 Jairo Buitrago RT(R) sent for patient. Start room use. 9:02:07 Time tracking: Regular hours (M-F 7:00 - 5:00) 9:02:12 Plan of Care:Hemodynamics will remain stable., Cardiac rhythm will remain stable., Comfort level will be maintained., Respiratory function will remain adequate., Patient/ family verbilizes understanding of procedure., Procedure tolerated without complication., Recovers from procedure without complications.. 9:07:44 Arrival Date: 12/03/2019 12:00:00 AM 9:08:21 Patient Height : 66 inches 9:08:29 Patient Weight : 148 lbs 9:08:44 Insurance Payor : Medicare 9:08:50 Admit Source: Other 9:09:48 Lab Result : CK-MB 1.3 ng/ml 9::48 Lab Result : Troponin l 0.017 ng/ml 9::48 Lab Result : BUN 18 mg/dl :48 Lab Result : Creatinine 3.4 mg/dl :49 Lab Result : Hematocrit 35 % 9:49 Lab Result : Hemoglobin 11.4 g/dl 9:11:41 Patient allergic to Other allergyFLUOXETINE HCL(FROM PROZAExplorra), mEPERIDINE HCL (FROM DEMORAL) SEE LIST 9:14:59 Patient received from Med II to CCL 3 Alert and oriented. Tansferred to table in Supine position. 9:15:12 Signed procedure consent form obtained from patient. 9:15:14 Warm blankets applied, and nae hugger turned on for patient comfort. 9:15:15 Correct patient and procedure confirmed by team. 9:15:16 ECG and BP/O2 sat monitors applied to patient. 9:15:28 Risk of Mortality: 0.6 9:15:34 Risk of blood transfusion: 3.6 9:15:41 Risk of AGUILAR: 16.8 9:25:29 0.9% NaCl 10 ml/hr I.V. was administered by Milton Moyer RN; Per physician; Verbal order read back and verified. 9:25:39 Oxygen 2 l/min etCO2 Nasal cannula was administered by Milton Moyer RN; for low 02 sats; Verbal order read back and verified. 9:25:42 Vital chart was started 9:25:43 Baseline sample Acquired. 9:25:49 Heparin Flush Bag (1000units/500ml NS) 2 bags added to field was administered by Milton Moyer RN; used for procedure; Verbal order read back and verified. :25:49 Rhythm: sinus rhythm 9:25:51 Full Disclosure recording started 9:26:01 Lidocaine 2% 20ml vial added to field was administered by Milton Moyer RN; for local anesthetic; Verbal order read back and verified. 9:28:22 H&P Date Dictated: 12/03/2019 Within 30 days and on chart.. 9:28:24 Pre-procedure instructions explained to patient. 9:28:25 Pre-op teaching completed and patient verbalized understanding. 9:28:29 Family unavailable. 9:28:30 Patient NPO since Midnight. 9:28:35 Is the patient allergic to Iodine/contrast media? No. 9:29:13 Is patient on blood thinner?No 9:29:17 ACC The patient was administered the following blood thiners within the last 24 hours: None 9:29:20 Patient diabetic? No. 9:29:23 Previous problem with sedation/anesthesia? No ? 9:29:24 Snore? Yes 9:29:26 Sleep apnea? No 9:29:27 Deviated septum? No 9:29:27 Opens mouth fully? Yes 9:29:28 Sticks out tongue? Yes 9:29:33 Airway obstruction? No ? 9:29:36 Dentures? No ? 9:29:41 Pre procedure: right dorsailis pedis pulse 1+ Palpable, but thready & weak; easily obliterated 9:29:46 Patient pain scale 0/10 ?. 9:30:03 IV patent on arrival in right forearm with 0.9% NaCl at KVO. 9:30:43 PT HAS A RESERVE LEFT ARM. 9:30:54 Lab results completed and on chart. 9:30:59 Right groin area was prepped with chlora-prep and draped in sterile fashion 9:31:00 Alarms reviewed by R. N. 9:31:00 Sharps counted by scrub and verified by R.N. 9:34:28 Use device set Femoral Dx 9:34:30 ACIST Manifold (21700) opened to sterile field. 9:34:31 ACIST Hand Control (87559) opened to sterile field. 9:34:32 Tegaderm 4 x 4 (1626W) opened to sterile field. 9:34:34 ACIST Syringe (12502) opened to sterile field. 9:34:34 Bag Decanter (2002S) opened to sterile field. 9:34:35 Medline Cath Pack ([id number]) opened to sterile field. 9:34:37 DIAGNOSTIC Multipack 5Fr catheter set (UK8989) opened to sterile field. 9:34:38 SHEATH 5FR [place] (ZYY323) opened to sterile field. 9:34:38 SAIMAALD Guide Wire (794-264) opened to sterile field. 9:34:48 Physician arrived 9:34:48 --------ALL STOP TIME OUT------ 9:34:49 Final Timeout: patient, procedure, and site verified with staff and physician. All members of the team are in agreement. 9:34:52 Right groin site verified by team. 9:34:56 Fire Safety Assessment: A--An alcohol-based skin anteseptic being used preoperatively., C--Open oxygen or nitrous oxide is being used., D--An ESU, laser, or fiber-optic light is being used. 9:34:58 Physical assessment completed. ASA score P 2 - A patient with mild systemic disease as per Denny Monroe MD. 9:35:15 5) <15 or on dialysis Very severe, or end stage kidney failure. 9:35:21 Maximum allowable contrast dose (3.7 X eGFR X 0.75)42 ml. 9:35:26 Sedation plan: IV Moderate Sedation Medication:Versed, Fentanyl 9:39:21 Zero performed for pressure channel P1 9:40:29 Versed 2 mg I.V. was administered by Milton Moyer RN; for sedation; Verbal order read back and verified. 9:40:32 Procedure started. 9:40:38 Fentanyl 100 mcg I.V. was administered by Milton Moyer RN; for sedation; Verbal order read back and verified. 9:40:45 Local anesthetic to right femoral artery with Lidocaine 2% by Denny Monroe MD.INITIAL ACCESS ONLY 9:40:55 A 5 Fr sheath was inserted into the Right Femoral artery 9:41:18 A MULTIPACK Pigtail 5 Fr catheter was advanced over the wire and used for Procedure. 9:41:33 LV angiography performed. 9:41:34 LV gram done using FINCH 9:41:47 EF : 55 % 9:41:49 LV hemodynamics recorded. 9:41:51 Versed 0.5 mg I.V. was administered by Milton Moyer RN; for sedation; Verbal order read back and verified. 9:41:52 Injector settings: Ml/sec: 10, Volume: 20, 9:41:56 Catheter removed. 9:42:01 A MULTIPACK JL 4.0 5Fr catheter was advanced over the wire and used for Procedure. 9:42:47 LCA angiography performed. 9:43:27 Catheter removed. 9:43:32 A MULTIPACK 3DRC 5Fr catheter was advanced over the wire and used for Procedure. 9:43:55 RCA angiography performed. 9:44:02 ACCDominant side:Right 9:44:03 Catheter removed. 9:44:06 EXOSEAL 5Fr (EX500) opened to sterile field. 9:44:14 Sheath removed intact; hemostasis achieved with Exoseal to the Right Femoral artery. 9:44:17 Procedure ended.(Physican Out) 9:44:35 Fluoroscopy time 01.00 minutes. 9:44:39 Fluoroscopy dose: 136.37 mGy 9:44:39 Flurop Dose total: 136.37 9:44:43 Dose Area Product 907.93 mGy/cm. 9:45:35 Contrast amount:Isovue 300 39ml. 9:45:38 Maximum allowable dose exceeded? No. 9:45:40 Sharps counted by scrub and verified by R.N. 9:45:43 Insertion/operative site no bleeding no hematoma. 9:45:46 Post-op/insertion site Right Femoral artery dressed using a 4 x 4 and Tegaderm. 9:45:47 Post Procedure Pulses reassessed and unchanged 9:45:49 Post-procedure physical assessment completed. ASA score P 2 - A patient with mild systemic disease as per Denny Monroe MD. 9:45:52 Post procedure rhythm: unchanged. 9:45:55 Estimated blood loss: 10 ml 9:45:56 Post procedure instruction explained to patient.Patient verbalizes understanding. 9:45:57 Patient needs reinforcement of post procedure teaching. 9:46:04 Procedure and supply charges have been captured, reviewed, submitted and are correct. 9:46:07 Procedure Complication : No complications 9:46:21 Vital chart was stopped 9:46:22 [facility] Findings: mild to moderate CAD (<70%) 9:46:24 Operative report dictated upon procedure completion. 9:46:24 See physician's report for complete and final results. 9:46:27 Report given to PCU. 9:46:35 Patient transfered to PCU with Bed. 9:46:38 Procedure ended. 9:46:38 Full Disclosure recording stopped 9:48:31 End room use (Document Last) 9:48:52 End room use (Document Last) 9:49:33 End room use (Document Last) Device Usage Item Name Manufacture Quantity Catalog Hospital Part Current Minimal L ot# / Number Charge Number Stock Stock Serial# Code ACIST Acist 1 26860 097655 805145 798134 5 Manifold Medical (51053) Systems Inc ACIST Hand Acist 1 22580 241027 070365 002680 5 Control Medical (24304) Systems Inc Tegaderm 4 3M 1 1626W 588307 446017 663834 5 x 4 (1626W) ACIST Acist 1 59227 828624 020138 217463 20 Syringe Medical (03957) Systems Inc Bag Microtek 1 2001S 817688 02655 678817 5 Decanter Medical Inc. (2001S) Medline Medline 1 [id number] 603978 54107 508414 5 Cath Pack ([id number]) DIAGNOSTIC Cardinal 1 LT0321 473299 62929 602604 30 Multipack ShuttleCloud 5Fr catheter set (LN2460) SHEATH 5FR Terumo 1 CUI985 340726 129816 837168 5 [place] (LPD654) EMERALD Cardinal 1 502-455 949687 229754 937452 5 Guide Wire [facility] (502455) MULTIPACK Cardinal 1 211754 5 Pigtail 5 Health Fr catheter MULTIPACK Cardinal 1 302507 5 JL 4.0 5Fr Health catheter MULTIPACK Cardinal 1 360628 5 3DRC 5Fr Health catheter EXOSEAL 5Fr Cardinal 1 EX500 188413 704182 298903 10 (EX500) Health Signature Audit [place] Stage Time Signature Unsigned Intra-Procedure 12/03/2019 Jairo Buitrago 9:48:52 AM RT(R) Intra-Procedure 12/03/2019 Milton 9:49:33 AM João LARA Intra-Procedure 12/03/2019 Denny Monroe 9:49:56 AM [facility] [address] [place] [address]
[2019-12-01 16:34] LABS: APTT 31.1 SECONDS (22.8-39.4); CALC OSMOLALITY 284 mosm/kg (275-300); CALCIUM 8.3 mg/dL (8.5-10.1); CARBON DIOXIDE 27.6 mmol/L (21.0-32.0); CHLORIDE - SERUM 103 mmol/L (98-107); CREATININE - SERUM 3.4 mg/dL (0.6-1.3); GLUCOSE 104 mg/dL (74-106); INR 1.26 (0.85-1.17); POTASSIUM - SERUM 4.1 mmol/L (3.5-5.1); PROTIME 15.7 SECONDS (11.6-15.0); SODIUM 142 mmol/L (136-145); UREA NITROGEN 18 mg/dL (7-18); eGFR NON AFRICAN AMERICAN 15 mL/min (90-120)
[2019-12-01 16:36] LABS: BASOPHILS 0.4 % (0-2); EOSINOPHILS 6.7 % (0-7); HEMOGLOBIN 11.4 g/dL (12-16); IMMATURE GRANULOCYTES 0.4 % (0-5); LYMPHOCYTES 16.2 % (15-50); MCH 32.4 pg (26.0-34.0); MCHC 32.6 g/dL (31.0-37.0); MCV 99.4 fL (80.0-100.0); MEAN PLATELET VOLUME 10.6 fL (7.4-10.4); MONOCYTES 6.6 % (2-11); NEUTROPHILS 69.7 % (40-80); RBC 3.52 10x6/uL (4.00-5.40); WBC 5.2 10x3/uL (4.8-10.8)
[2019-12-01 16:39] LABS: PLATELET COUNT 160 10x3/uL (130-400)
[2019-12-01 16:50] LABS: ALBUMIN 3.7 g/dL (3.4-5.0); ALKALINE PHOSPHATASE 131 U/L (46-116); ALT (SGPT) 12 U/L (10-68); BILIRUBIN - TOTAL 0.51 mg/dL (0.2-1.3); CKMB 1.3 U/L (0.0-3.6); CREATINE KINASE 47 UL (21-215); PROTEIN - SERUM 6.5 g/dL (6.4-8.2); TROPONIN-I < 0.017 ng/mL (0.000-0.060)
--- NOTE | 2019-12-01 17:26 | NUR ---
SITTING IN CHAIR IN WR TALKING WITH FAMILY. O2 SATS WNL. DENIES CP OR OTHER C/O. EXPL POC?WAITING FORM ER ROOM. VERB UNDER
[2019-12-01 18:01] LABS: PRO BNP 193500 pg/mL (0-125)
[2019-12-01 23:24] VITALS: BP 178/84; BMI 23.8
--- NOTE | 2019-12-01 23:49 | NUR ---
RECIEVED PT FROM ER. ADMISSION ASSESMENT COMPLETED VSS, WITH BP 178/84. CALLED AND NOTIFIED HARMONY ALLEN. HE STATES TO RESTART HOME BP MEDS. COREG 12.5MG RESTARTED. PT AAOX4, NO S/S OF RT DISTRESS, O2 @ 2L NC. SPO2 96. PT DENIES ANY NEEDS FOR PAIN, PT DENIES COUGH/NAUSEA. PT DENIES ANY FURTHER NEEDS FOR COMFORT CARE. CL WITHIN REACH, BED IN LOW, SR UP X2. WILL CTM.
--- NOTE | 2019-12-02 07:09 | NUR ---
REPORT RECEIVED FRON LABOR CUSTODIAN AND PATIENT CARE [id number]. PATIENT LAYING IN BED ON RT SIDE WITH EYES CLOSED AND BREATHING EVENLY. WILL CONTINUE WITH PLAN OF CARE. SR UPX 2 BED IN LOW POSITION AND CALL LIGHT IN REACH.
[2019-12-02 08:27] VITALS: BP 165/84
[2019-12-02 09:36] VITALS: BMI 23.8
--- NOTE | 2019-12-02 10:14 | NUR ---
PATIENT HAD SHOWER. PATIENT STATES WHILE IN SHOWER SHE SCRAPPED HER RT THIGH. RT THIGH HAS 0.3 CM SKIN TEAR WITH BRIGHT RED BLEEDING. PRESSURE DRSG APPLIED. WILL CONTINUE TO MONITOR. SR UP X 2M BED IN LOW POSITION AND CALL LIGHT IN REACH.
[2019-12-02 11:11] VITALS: BP 163/92
--- NOTE | 2019-12-02 13:00 | NUR ---
PATIENT IS STABLE AND VSS. PIV TO RT HAND INFILLTRATED. RE-SITED TO RT UPPER ARM WITH ONE ATTEMPT. PATIENT TOLERATED WELL. PATIENT DENIES ANY NEEDS OR PAIN. PATIENT TO DIALYSIS VIA WC.
--- NOTE | 2019-12-02 14:00 | NUR ---
RECIEVED PHONE CALL FROM DIALYSIS. REPORTED THAT PT BP 206/112 AND PT C/O ACUTE ITCHING. CALLED HARMONY PHELPS FOR DR MACIAS.RECEIVED NEW ORDER FOR BENADRYL 25 MG IV AND CLONIDINE 0.1 MG PO. ADMINISTERED MEDICATIONS IN DIALYSIS. PATIENT TOLERATED WELL.
--- NOTE | 2019-12-02 18:34 | NUR ---
PATIENT LAYING IN BED WITH EYES CLOSED AND BREATHING EVENLY. WILL CONTINUE TO MONITOR. SR UP X 2 BED IN LOW POSITION AND CALL LIGHT IN REACH.
[2019-12-02 20:00] VITALS: BP 235/110
[2019-12-02 20:30] VITALS: BP 170/92
[2019-12-02 23:00] VITALS: BP 190/82
--- NOTE | 2019-12-02 23:30 | NUR ---
PTS BP ELEVATED, 190/82. CALLED LENIN TAI APN WHO ORDERED LISINOPRIL. SEE MAR. ADMINISTERED AND WILL CONTINUE TO MONITOR.
--- NOTE | 2019-12-03 | NUR ---
PT C/O OFF PAIN AROUND HER IV TO THE RIGHT UPPER ARM. HER ARM DOES APPEAR SWOLLEN ABOVE THE IV SITE. IV REMOVED AND RESITED TO RIGHT HAND WITHOUT DIFFICULTY.
[2019-12-03 04:00] VITALS: BP 173/94
--- NOTE | 2019-12-03 04:50 | NUR ---
PTS BLOOD PRESSURE IS 173/94. REPORTED THIS TO LENIN TAI APN. NO NEW ORDERS GIVEN AT THIS TIME.
--- NOTE | 2019-12-03 07:19 | NUR ---
REPORT RECEIVED FROM SCALLOP DREDGER AND PATIENT CARE ASSUMED. PATIENT LAYING IN BED AWAKE, ALERT AND ORIENTED X 4. PATIENT STATES THAT SHE HAS A HEADACHE AND REQUESTS A FIORICET. PATIENT MEDICATED PER MAR. WILL CONTINUE WITH PLAN OF CARE. SR UP X 2 BED IN LOW POSITION AND CALL LIGHT IN REACH.
[2019-12-03 08:24] VITALS: Ht 167.6 cm; Wt 66.4 kg
--- NOTE | 2019-12-03 08:45 | NUR ---
PATIENT IS STABLE AND VSS. PATIENT DENIES ANY NEEDS OR PAIN. PATIENT PREOP PER CIRCULAR SAWYER STONE TEAM PHONE CALL. PATIENT TO CIRCULAR SAWYER STONE VIA HOSPITAL BED AND CIRCULAR SAWYER STONE TEAM.
--- NOTE | 2019-12-03 10:30 | NUR ---
PATIENT RETURNED FROM POCKETED SPRING MACHINE OPERATOR VIA HOSPITA BED AND POCKETED SPRING MACHINE OPERATOR TEAM. PATIENT IS STABLE AND VSS. PAGTIENT HAD CLEAN CATH. PATIENT IS SLEEPING BUT AROUSES TO VOICE EASILY. RT GROIN DRESSING C/D/I. NO SIGNS OR HEMATOMA, BRUISING OR BLEEDING. PEDAL PULSES INTACT. FREQUENT VITALS SET UP. WILL CONTINUE TO MONITOR. SR UPX 2 BED IN LOW POSITION AND CALL LIGHT IN REACH.
--- NOTE | 2019-12-03 11:44 | NUR ---
PATIENT IS STABLE AND VSS. RT GROIN DSG C/D/I. RT GROIN NO SIGNS OF BLEEDING BRUISING OR HEMATOMA. PEDAL PULSES PRESENT. WILL CONTINUE TO MONITOR. SR UPX 2 BED IN LOW POSITION AND CALL LIGHT IN REACH.
--- NOTE | 2019-12-03 14:27 | NUR ---
PATIENT RETURNED FROM DIALYSIS VIA HOSPITAL BED AND HOSPITAL STAFF. PATIENT IS AWAKE AND ALERT. PATIENT DENIES ANY NEEDS OR PAIN. PATIENT IS STABLE AND VSS. RT GROIN DSG C/D/I. NO SIGNS OF BLEEDING, BRUISING OR HEMATOMA. DTR AT BS. WILL CONTINUE TO MONITOR. SR UP X 2 BED IN LOW POSITION OTILIA CALL LIGHT IN REACH.
--- NOTE | 2019-12-03 15:49 | NUR ---
PATIENT COMPLAINS OF NAUSEA AND HEADACHE. PATIENT REQUESTS MEDICATION FOR BOTH. MEDICATED PER MAR WITH ZOFRAN 4 MG PO AND NORCO 10 MG PO. DTR AT BS. WILL CONTINUE TO MONITOR. SR UP X 2 BED IN LOW POSITION AND CALL LIGHT IN REACH.
[2019-12-03 17:14] VITALS: BP 161/89
[2019-12-03 20:00] VITALS: BP 134/56
[2019-12-04] VITALS: BP 154/72
--- NOTE | 2019-12-04 01:10 | NUR ---
PT C/O OF A THROBBING HEADACHE THAT SHE STATES SHE HAS HAD SINCE SHE WAS ADMITTED TO THE HOSPITAL. SHE STATES THAT THE HYDROCODONE DID NOT RELIEVE THE PAIN AT ALL. SHE ASKS THAT I CALL THE DR AND SEE IF SHE CAN HAVE DILAUDID. CALLED THE [employer] AND ASKED WHO WAS THE NURSE PRACTIONER WAS DELIVERY DRIVER/CUSTOMER SERVICE FOR . THE LADY SAID IS DELIVERY DRIVER/CUSTOMER SERVICE. ASKED HER TO PAGE HIM SINCE HE IS DELIVERY DRIVER/CUSTOMER SERVICE. DR. MACIAS CALLED ME BACK. HE WAS UPSET BECAUSE HARMONY MCLEAN IS DELIVERY DRIVER/CUSTOMER SERVICE AND HE SHOULD NOT HAVE BEEN CALLED. SEE MAR FOR ONE TIME ORDER OF DILAUDID. CALLED THE EXCHANGE TO LET THEM KNOW WHAT DR. AMCIAS HAD SAID. WILL GIVE PT THE DILAUDID AND CONTINUE TO MONITOR.
[2019-12-04 04:00] VITALS: BP 106/52
--- NOTE | 2019-12-04 07:19 | NUR ---
REPORT RECEIVED AND PATIENT CARE ASSUMED. PATIENT LAYING IN BED WITH EYES CLOSED AND BREATHING EVENLY. WILL CONTINUE TO MONITOR. SR UPX 2 BED IN LOW POSITION AND CALL LIGHT IN REACH.
[2019-12-04 09:02] VITALS: BP 107/66
--- NOTE | 2019-12-04 09:15 | NUR ---
PATIENT IS STABLE AND VSS. PATIENT TO DIALYSIS VIA WC ACCOMPANIED BY HOPSITAL STAFF.
[2019-12-04 09:29] LABS: BASOPHILS 0.3 % (0-2); EOSINOPHILS 10.8 % (0-7); HEMATOCRIT 31.7 % (36.0-48.0); IMMATURE GRANULOCYTES 0.2 % (0-5); LYMPHOCYTES 17.2 % (15-50); MCH 31.6 pg (26.0-34.0); MCHC 31.5 g/dL (31.0-37.0); MCV 100.3 fL (80.0-100.0); MEAN PLATELET VOLUME 10.3 fL (7.4-10.4); MONOCYTES 11.8 % (2-11); NEUTROPHILS 59.7 % (40-80); RBC 3.16 10x6/uL (4.00-5.40); RDW 13.8 % (11.5-14.5); WBC 5.7 10x3/uL (4.8-10.8)
[2019-12-04 09:32] LABS: PLATELET COUNT 122 10x3/uL (130-400)
[2019-12-04 09:48] LABS: ANION GAP 14.5 mmol/L (8-16); CALCIUM 8.4 mg/dL (8.5-10.1); CARBON DIOXIDE 30.2 mmol/L (21.0-32.0); CREATININE - SERUM 4.5 mg/dL (0.6-1.3); POTASSIUM - SERUM 4.7 mmol/L (3.5-5.1)
[2019-12-04] MEDS ORDERED: LISINOPRIL10 MG PO (10:08)
[2019-12-04] MEDS ORDERED: NORVASC10 MG PO (10:08)
[2019-12-04] MEDS ORDERED: COREG12.5 MG PO (10:08)
[2019-12-04] MEDS ORDERED: XANAX0.25 MG PO (10:09)
--- NOTE | 2019-12-04 14:49 | MORECARE ---
CASE MANAGEMENT DISCHARGE SUMMARY PATIENT: ARTHUR JUNG UNIT: [id number] ADM DATE: 12/01/19 AGE: 54 : 61 SEX: F ROOM/BED: D.2101 AUTHOR: LIDA LEPE PHYSICIAN: REFERRING PHYSICIAN: TAYE MACIAS MD DATE OF SERVICE: 12/04/19 Discharge Plan Patient Name: ARTHUR JUNG [facility] [facility] 1965 Planned Disposition: Home Anticipated Discharge Date: 12/04/19 Discharge Date: Expected LOS: 3 Initial Reviewer: [email or web address] Initial Review Date: 12/04/2019 Generated: 12/04/19 3:49 pm Coverage Notice Reviewer: [email or web address] - Zuleima Reno Notice Issued Date-Time: 12/04/2019 14:47 Notice Type: IM Discharge Notice Notice Delivered To: Relationship to Patient: Medical Appliance Maker Name: Delivery Method: HAND - Hand Delivered Ely Days: Prior Verbal Notification: Recipient Understood Notice: Yes Recipient Signature: Yes Med Rec Note Co-signed by Attending: Coverage Notice Comment: Patient Name: ARTHUR JUNG Page 84802 at 1449 All edits/amendments must be made on the electronic document DICTATION DATE: 12/04/191448 STUMPER FELLER: SARA 12/04/19 144 RPT#: [id number] DC DATE: STATUS: ADM IN [facility] [address] [place] [address] END OF REPORT
--- NOTE | 2019-12-04 14:59 | MORECARE ---
CASE MANAGEMENT DISCHARGE SUMMARY PATIENT: ARTHUR JUNG UNIT: [id number] ADM DATE: 12/01/19 AGE: 54 : 61 SEX: F ROOM/BED: D.2106 AUTHOR: LIDA LEPE PHYSICIAN: REFERRING PHYSICIAN: TAYE RAMOS MD DATE OF SERVICE: 12/04/19 Discharge Plan Patient Name: ARTHUR JUNG Facility: [facility]:[place] : 1965 Planned Disposition: Home Anticipated Discharge Date: 12/04/19 Discharge Date: Expected LOS: 3 Initial Reviewer: [email or web address] Initial Review Date: 12/04/2019 Generated: 12/04/19 3:58 pm Comments DCP- Discharge Planning Updated by [email or web address]: Zuleima Reno on 12/04/19 1:[address] Patient Name: ARTHUR JUNG Admission Status: ER Accout number: [id number] Admission Date: 12-01-2019 : 1965 Admission Diagnosis:FLUID OVERLOAD, UNSPECIFIED Attending: Taye Ramos Current LOS: 3 Anticipated DC Date: 12-04-2019 Planned Disposition: Home Primary Insurance: MEDICARE A & B Discharge Planning Comments: CM MET WITH PATIENT AFTER OBTAINING VERBAL CONSENT. STATES PLANS TO DC TO HOME TODAY. DENIES NEEDS FOR HH, REHAB OR EQUIPMENT. IMM SERVED. PATIENT HAS SOMEONE TO PICKUP AT DC. Group Fitness Instructor: Zuleima Reno DCPIA - Discharge Planning Initial Assessment Updated by [email or web address]: Zuleima Reno on 12/04/19 2:49 pm * Is the patient Alert and Oriented? Yes * PCP BRITTANY PALAFOX * Pharmacy [facility] * Preadmission Environment Home Alone * ADLs Independent * Other Equipment 02 AND [facility] * Additional services required to return to the preadmission environment? No * Can the patient safely return to the preadmission environment? Yes * Has this patient been hospitalized within the prior 30 days at any hospital? No Coverage Notice Reviewer: [id number] - Zuleima Reno Notice Issued Date-Time: 12/04/2019 14:47 Notice Type: IM Discharge Notice Notice Delivered To: Relationship to Patient: Agricultural Labor Camp Manager Name: Delivery Method: HAND - Hand Delivered Ely Days: Prior Verbal Notification: Recipient Understood Notice: Yes Recipient Signature: Yes Med Rec Note Co-signed by Attending: Coverage Notice Comment: Last DP export: 12/04/19 1:49 p Patient Name: ARTHUR JUNG Page [phone] at 1458 All edits/amendments must be made on the electronic document DICTATION DATE: 12/04/191457 OUTPATIENT PSYCHIATRIST: SARA 12/04/191457 RPT#: [id number] DC DATE: STATUS: ADM IN [facility] [address] [place] [address] END OF REPORT
--- NOTE | 2019-12-04 15:45 | NUR ---
PATIENT IS STABLE AND VSS. ORDERS RECEIVED FOR DC. WRITTEN AND VERBAL INSTRUCTIONS GIVEN TO PATIENT AND DAUGHTER. PATIENT VERBALIZED UNDERSTANDING AND SIGNED PAPERWORK. IVD DCD WITHOUT DIFFICULTY WITH ENTIRE CATHETER INTACT. PRESSURE DRSG APPLIED. PATIENT TO FRONT DOOR VIA WC ACCOMPANIED BY HOSPITAL PERSONNEL TO PRIVATE VEHICLE DRIVEN BY DTR.
--- NOTE | 2019-12-05 12:00 | MORECARE ---
CASE MANAGEMENT DISCHARGE SUMMARY PATIENT: ARTHUR JUNG UNIT: [id number] ADM DATE: 12/01/19 AGE: 54 : 61 SEX: F ROOM/BED: D.2102 AUTHOR: LIDA LEPE PHYSICIAN: REFERRING PHYSICIAN: TAYE RAMOS MD DATE OF SERVICE: 12/05/19 Discharge Plan Patient Name: ARTHUR JUNG Facility: [facility]:[place] : 1965 Planned Disposition: Home Anticipated Discharge Date: 12/04/19 Discharge Date: 12/04/2019 Expected LOS: 3 Initial Reviewer: [id number] Initial Review Date: 12/04/2019 Generated: 12/05/19 1:00 pm Comments DCP- Discharge Planning Updated by [id number]: Zuleima Reno on 12/04/19 1:[address] Patient Name: ARTHUR JUNG Admission Status: ER Accout number: [id number] Admission Date: 12-01-2019 : 1965 Admission Diagnosis:FLUID OVERLOAD, UNSPECIFIED Attending: Taye Ramos Current LOS: 3 Anticipated DC Date: 12-04-2019 Planned Disposition: Home Primary Insurance: MEDICARE A & B Discharge Planning Comments: CM MET WITH PATIENT AFTER OBTAINING VERBAL CONSENT. STATES PLANS TO DC TO HOME TODAY. DENIES NEEDS FOR HH, REHAB OR EQUIPMENT. IMM SERVED. PATIENT HAS SOMEONE TO PICKUP AT DC. Mobile Patrol Officer: Zuleima Reno DCPIA - Discharge Planning Initial Assessment Updated by [id number]: Zuleima Reno on 12/04/19 2:49 pm * Is the patient Alert and Oriented? Yes * PCP BRITTANY PALAFOX * Pharmacy [facility] * Preadmission Environment Home Alone * ADLs Independent * Other Equipment [facility] * Additional services required to return to the preadmission environment? No * Can the patient safely return to the preadmission environment? Yes * Has this patient been hospitalized within the prior 30 days at any hospital? No Coverage Notice Reviewer: [id number] - Zuleima Reno Notice Issued Date-Time: 12/04/2019 14:47 Notice Type: IM Discharge Notice Notice Delivered To: Relationship to Patient: Doping Supervisor Name: Delivery Method: HAND - Hand Delivered Ely Days: Prior Verbal Notification: Recipient Understood Notice: Yes Recipient Signature: Yes Med Rec Note Co-signed by Attending: Coverage Notice Comment: Last DP export: 12/04/19 1:59 p Patient Name: ARTHUR JUNG Page 12729 at 1200 All edits/amendments must be made on the electronic document DICTATION DATE: 12/05/19 1200 DIRECTOR OF VIDEO ANALYTICS: SARA 12/05/19 1200 RPT#: [id number] DC DATE:12/04/19 STATUS: DIS IN [facility] [address] [place] [address] END OF REPORT
--- NOTE | 2019-12-06 12:18 | EC ---
PATIENT:ARTHUR JUNG DATE OF SERVICE: 12/01/19 SEX: F MEDICAL RECORD: [id number] DATE OF : 61 LOCATION:D.M2 D.210 AGE OF PATIENT: 54 ADMISSION DATE: 12/01/19 REFERRING PHYSICIAN: INTERPRETING PHYSICIAN: PAUL CONTE MD ECHOCARDIOGRAM REPORT ECHO CHARGES 4 ECHO COMPLETE Date: 12/03/19 CLINICAL DIAGNOSIS: SOB ECHOCARDIOGRAPHIC MEASUREMENTS (adult normal given) AC root (d.<3.7cm) 2.4 cm LV Septum d (<1.2 cm> 1.3 cm Valve Excursion 1.6 cm LV Septum (systole) 1.4 cm Left Atria (s.<4.0cm> 4.7 cm LVPW d(<1.2cm) 1.2 cm RV (d.<2.3cm) 4.4 cm LVPW (sytole) 1.8 cm LV diastole(<5.6CM) 5.7 cm MV E-F(>70mm/sec) cm LV systole 4.4 cm LVOT Diameter 1.8 cm MV exc.(>10mm) cm Est.ejection fraction (50-75%) % DOPPLER: LVIT cm/sec A 89 cm/sec E 138 cm/sec LA cm/sec RVSP 42.0 mmHg LVOT 115 cm/sec AOP1/2T m/s Asc. Ao 162 cm/sec RVOT 85 cm/sec RA cm/sec PA 86 cm/sec AV Gradient Peak 10.4 mmHg AV Mean 6.5 mmHg AV Area 1.8 cm MV Gradient Peak 11.7 mmHg MV Mean 5.2 mmHg MV Area cm COMMENTS: Veterinary Technology Instructor: Jaden GOLDSTEIN Behavior Support Specialist: 3 Dr. Pozo TAPE# PACS Pericardial Effusion Y DATE OF SERVICE: Adequate 2D, color flow imaging, spectral Doppler, and M-Mode. LVH is present. LV internal dimensions appears normal at 5.7 cm. LV shows is mildly globally hypo with EF mildly reduced at 45% to 50%. Aortic valve sclerosis without stenosis by Doppler interrogation. Left atrium dilated at 4.7 cm. Mitral valve shows no prolapse, severe MR. Right-sided chamber is grossly normal. Severe TR. ECHOCARDIOGRAM REPORT [id number] ARTHUR JUNG TRANSINT:[id number] Voice Confirmation ID: [id number] DOCUMENT ID: [id number] PAUL CONTE MD at 1218 CC: [id number] DICTATION DATE: 12/04/19 1013 LOCOMOTIVE MECHANIC: 12/04/19 1238 DIS IN 12/04/19 [facility] [address] [place] [address]
== END 2019-12-04 15:53 | disposition home or self-care (01) | DRG 291 ==
LOC: D.ER 15:08 → D.M2 20:38
PROVIDERS: Family Medicine; ADMIT Internal Medicine Nephrology; ATTEND Internal Medicine Nephrology
PROC: 5A1D70Z Performance of Urinary Filtration, Intermittent, Less than 6 Hours Per Day (ICD-10-PCS; principal; 2019-12-02)
DX: I13.2 Hypertensive heart and chronic kidney disease with heart failure and with stage 5 chronic kidney disease, or end stage renal disease (principal); N18.6 End stage renal disease; I50.9 Heart failure, unspecified; Z99.2 Dependence on renal dialysis; J44.9 Chronic obstructive pulmonary disease, unspecified

== ENCOUNTER 2020-06-02 08:00 | Outpatient (CLI) | payer MEDICARE, BC ==
[2019-12-03 08:24] VITALS: BMI 23.8
[~2020-06-02 08:00] MED LIST changes: +COREG12.5 MG PO; +LISINOPRIL10 MG PO; +NORVASC10 MG PO
== END 2020-06-02 15:56 | disposition home or self-care (01) ==
LOC: D.MAMMO 08:00
PROVIDERS: ATTEND Internal Medicine Nephrology
DX: Z12.31 Encounter for screening mammogram for malignant neoplasm of breast (principal)

== ENCOUNTER → 2020-06-08 09:05 | Outpatient (CLI) | payer MEDICARE, BC ==
[2019-12-03 08:24] VITALS: BMI 23.8
== END | disposition home or self-care (01) ==
LOC: D.MAMMO 09:05
PROVIDERS: ATTEND Internal Medicine Nephrology
DX: R92.8 Other abnormal and inconclusive findings on diagnostic imaging of breast (principal)

== ENCOUNTER 2021-01-31 15:41 | Emergency (ER) | payer MEDICARE, BC ==
[~2021-01-31] VITALS: Ht 167.6 cm; Wt 68.2 kg
[2021-01-31 15:58] VITALS: BP 119/67; Ht 167.6 cm; Wt 68.2 kg
[2021-01-31] MEDS ORDERED: MYFORTIC180 MG PO (16:01)
[2021-01-31] MEDS ORDERED: ASPIRIN81 MG PO (16:02)
[2021-01-31] MEDS ORDERED: TACROLIMUS 3 MG (16:02)
[2021-01-31] MEDS ORDERED: PROTONIX40 MG PO (16:04)
[2021-01-31] MEDS ORDERED: VITAMIN D-32000 UNIT PO (16:04)
[2021-01-31] MEDS ORDERED: ZYRTEC10 MG PO (16:05)
[2021-01-31] MEDS ORDERED: LEVSIN/ANASP0.125 MG PO (16:06)
[2021-01-31] MEDS ORDERED: BACTRIM 400-801 TAB PO (16:06)
[2021-01-31] MEDS ORDERED: ONDANSETRON HCL8 MG PO (16:07)
[2021-01-31] MEDS ORDERED: ESTRADERM 0.10.1 MG TD (16:07)
[2021-01-31] MEDS ORDERED: VALCYTE450 MG PO (16:09)
[2021-01-31] MEDS ORDERED: PREDNISONE5 MG PO (16:09)
[2021-01-31 16:27] LABS: BILIRUBIN NEGATIVE (NEGATIVE); KETONE NEGATIVE (NEGATIVE); NITRITE NEGATIVE (NEGATIVE); UROBILINOGEN NORMAL mg/dL (< 2)
[2021-01-31 17:15] LABS: ANION GAP 11.1 mmol/L (8-16); CALCIUM 8.9 mg/dL (8.5-10.1); CARBON DIOXIDE 24.9 mmol/L (21.0-32.0); CREATININE - SERUM 0.9 mg/dL (0.6-1.3)
[2021-01-31 17:16] LABS: BASOPHILS 0 % (0-2); EOSINOPHILS 1.5 % (0-7); HEMATOCRIT 44.9 % (36.0-48.0); HEMOGLOBIN 14.8 g/dL (12-16); IMMATURE GRANULOCYTES 0.3 % (0-5); LYMPHOCYTE ABS# 0.19 10x3/uL (1.18-3.74); LYMPHOCYTES 2.7 % (15-50); MCH 31.5 pg (26.0-34.0); MCV 95.5 fL (80.0-100.0); MEAN PLATELET VOLUME 11.4 fL (7.4-10.4); MONOCYTES 3.9 % (2-11); NEUTROPHIL ABS# 6.52 10x3/uL (1.56-6.13); NEUTROPHILS 91.6 % (40-80); PLATELET COUNT 145 10x3/uL (130-400); RDW 13.2 % (11.5-14.5); WBC 7.1 10x3/uL (4.8-10.8)
[2021-01-31 17:21] LABS: ALBUMIN 3.7 g/dL (3.4-5.0); BILIRUBIN - TOTAL 0.7 mg/dL (0.2-1.3); PROTEIN - SERUM 6.3 g/dL (6.4-8.2)
[2021-01-31 17:56] LABS: AMYLASE - SERUM 52 U/L (25-115); LIPASE 72 U/L (73-393); TROPONIN-I < 0.017 ng/mL (0.000-0.060)
[2021-01-31] MEDS ORDERED: ZOFRAN ODT4 MG/UDTAB PO (18:49)
[2021-01-31] MEDS ORDERED: FLORASTOR250 MG PO (18:49)
== END 2021-01-31 19:02 | disposition home or self-care (01) ==
LOC: D.ER 15:41
PROVIDERS: Family Medicine
DX: R11.2 Nausea with vomiting, unspecified (principal); R19.7 Diarrhea, unspecified; B34.9 Viral infection, unspecified

== ENCOUNTER 2021-04-15 18:22 | Emergency (ER) | payer MEDICARE, BC ==
[~2021-04-15] VITALS: Ht 167.6 cm; Wt 67.7 kg
[~2021-04-15 18:22] MED LIST changes: +ASPIRIN81 MG PO; +BACTRIM 400-801 TAB PO; +ESTRADERM 0.10.1 MG TD; +FLORASTOR250 MG PO; +MYFORTIC180 MG PO; +ONDANSETRON HCL8 MG PO; +PREDNISONE5 MG PO; +TACROLIMUS 3 MG; +VALCYTE450 MG PO; +VITAMIN D-32000 UNIT PO; +ZYRTEC10 MG PO
[2021-04-15 18:27] VITALS: Ht 167.6 cm; Wt 67.7 kg
[2021-04-15] MEDS ORDERED: MYFORTIC180 MG PO (18:59)
[2021-04-15 21:16] VITALS: BP 144/78
== END 2021-04-15 21:16 | disposition home or self-care (01) ==
LOC: D.ER 18:22
DX: Z76.0 Encounter for issue of repeat prescription (principal); Z94.0 Kidney transplant status

== ENCOUNTER 2021-05-05 16:25 | Emergency (ER) | payer MEDICARE, BC ==
[~2021-05-05] VITALS: Ht 167.6 cm; Wt 70.5 kg
[2021-05-05 16:34] VITALS: BP 134/58; Ht 167.6 cm; Wt 70.5 kg
[2021-05-05] MEDS ORDERED: HYDROCODON-ACE1 EAC7 PO (19:58)
== END 2021-05-05 20:52 | disposition home or self-care (01) ==
LOC: D.ER 16:25
DX: S91.202A Unspecified open wound of left great toe with damage to nail, initial encounter (principal); W20.8XXA Other cause of strike by thrown, projected or falling object, initial encounter; Y93.9 Activity, unspecified; Y92.9 Unspecified place or not applicable